=== PATIENT | male | born 1950 | race Caucasian/White ===

== ENCOUNTER 2022-03-04 16:10 | Inpatient (IN) ==
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
[2022-03-04 17:33] LABS: Basophils # (auto) 0.02 K/uL (0-0.2); Basophils % (auto) 0.2 %; Hematocrit (blood only) 40.3 % (40.1-51.0); Hemoglobin 13.7 g/dl (14.0-18.0); Immature Granulocytes # (auto) 0.04 K/uL (0.00-0.02); Immature Granulocytes % (auto) 0.3 %; Lymphocytes # (auto) 0.52 K/uL (1.2-3.4); Lymphocytes % (auto) 4.3 %; Mean Corpuscular Hemoglobin 31.8 pg (25.0-34.0); Mean Corpuscular Volume 93.5 fL (80.0-100.0); Mean Platelet Volume 10.3 fL (9.4-12.4); Monocytes % (auto) 7.4 %; Neutrophils # (auto) 10.73 K/uL (1.4-6.5); Neutrophils % (auto) 87.8 %; Platelet Count 178 K/uL (130-400); RDW Coefficient of Variation 13.6 % (11.5-14.5); RDW Standard Deviation 46.5 fL (36.4-46.3); Red Blood Count 4.31 M/uL (4.63-6.08); White Blood Count 12.21 K/ul (4.8-10.8)
--- NOTE | 2022-03-04 17:43 | CT Scan Report ---
CT head/brain wo con CLINICAL HISTORY: 71 years-old Male with ams. Acutely altered mental status TECHNIQUE: Multiple axial CT images of the head were obtained without contrast. A dose lowering tech nique was utilized adhering to the principles of ALARA. CT DOSE: 537.48 mGy.cm COMPARISON: None. FINDINGS: No acute intracranial hemorrhage, midline shift, intracranial mass, hydrocephalus, territorial ischem ia or abnormal extra-axial collection. Mild involutional changes. The calvarium is intact. The paranasal sinuses, mastoid air cells, and middle ear cavities are clear . IMPRESSION: No acute intracranial abnormality. ACT 112: Negative or not required by law. The above report was generated using voice recognition software. It may contain grammatical, syntax o r spelling errors. Electronically signed by: Parrish De La Cruz M.D. 03/04/2022 5:41 PM
[2022-03-04 17:57] LABS: BUN Creatinine Ratio 24.8 (10-20); Calcium 9.5 mg/dl (8.5-10.1); Creatinine Clr Calc Pharmacy 45.1 ml/min; Est GFR (African American) 59.7 ml/min; Est GFR (Non-African American) 51.5 ml/min; Potassium 3.9 mmol/L (3.5-5.1)
[2022-03-04 18:11] LABS: Acetaminophen < 3 ug/ml (10-30); Salicylate < 3.0 mg/dl (3.0-30)
[2022-03-04 18:18] LABS: Albumin Globulin Ratio 1.5 (0.9-2); Bilirubin,Total 4.2 mg/dl (0.2-1.0); Globulin 2.7 gm/dl (2.5-4.0); Total Protein 6.7 gm/dl (6.0-8.3)
[2022-03-04] MEDS ORDERED: SODIUM CHLORIDE 0.9% 1000ML 1,000 ML IV ONE (18:25)
[2022-03-04] MEDS ORDERED: SODIUM CHLORIDE 0.9% 1000ML 1,000 ML IV SCH (18:30)
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
[2022-03-04 20:34] LABS: Lyme Ab IgG w/WB Rflx Negative (Negative); Lyme Ab IgM w/WB Rflx Negative (Negative)
[2022-03-04] MEDS ORDERED: OLANZapine 10 MG/2.1 ML SDV IM STA (22:13)
[2022-03-04] MEDS ORDERED: ACETAMINOPHEN 325 MG TAB PO PRN (22:14)
[2022-03-04] MEDS ORDERED: ONDANSETRON INJ 2 MG/ML 2 ML VIAL IV PRN (22:14)
[2022-03-04] MEDS ORDERED: OLANZapine 10 MG/2.1 ML SDV IM ONE (22:17)
[2022-03-04] MEDS ORDERED: LORazepam 0.5 MG in SYRINGE 0.25 ML IV ONE (22:50)
[2022-03-04] MEDS: SODIUM CHLORIDE 0.9% 1000ML 1,000 ML IV SCH (22:52)
[2022-03-04] MEDS: risperiDONE 2 MG TABLET PO SCH (23:00)
[2022-03-05 03:21] LABS: Appearance Urine Clear (Clear); Bacteria Urine Automated Negative (Negative); Bilirubin Urine Negative (Negative); Blood Urine 2+ (Negative); Color Urine Yellow; Epithelial Cell Urine Auto 0-5 /lpf (0-5); Glucose Urine UA Negative (Negative); Ketones Urine 1+ (Negative); Leukocyte Esterase Urine Negative (Negative); Nitrite Urine Negative (Negative); Protein Urine 1+ (Negative); RBC Urine Automated 0-4 /hpf (0-4); Specific Gravity Urine 1.025 (1.000-1.030); Urobilinogen Urine Negative (Negative)
[2022-03-05 03:45] LABS: Amphetamines+Metham, Urine Neg (Neg); Barbiturates, Urine Neg (Neg); Benzodiazepine, Urine Neg (Neg); Cocaine, Urine Neg (Neg); MDMA (Ecstacy), Urine Neg (Neg); Methadone, Urine Neg (Neg); Opiate, Urine Neg (Neg); Phencyclidine, Urine Neg (Neg)
[2022-03-05] MEDS: SODIUM CHLORIDE 0.9% 1000ML 1,000 ML IV SCH ×3 (06:12→23:36)
[2022-03-05] MEDS: PANTOprazole 40 MG TAB PO SCH ×2 (10:05→10:42)
[2022-03-05] MEDS: OLANZapine 10 MG/2.1 ML SDV IM PRN ×2 (10:08→14:10)
--- NOTE | 2022-03-05 12:36 | Hospitalist Progress Note ---
Date of Service March 05, 2022 Assessment & Plan (1) Rhabdomyolysis: Plan: -Continue IV fluids, elevated CK level of 5697 on admission, repeat CK pending. might worsen with his agitation. monitor (2) Bipolar disorder: (3) Altered mental status: Plan: -CT of the brain is negative for any acute findings - UDS negative, no focal source of infection, lyme and other tick borne disease negative - Patient is on a 302, psych evaluation pending - currently on 1:1, and on restraints as violent and uncooperative - Risperdal resumed (4) Elevated bilirubin: (5) Transaminitis: Plan: - Repeat LFT pending, tick borne work up negative so far, hepatitis panel pending (6) Charles esophagus: Plan: continue PPI (7) DDD (degenerative disc disease): (8) B12 deficiency: Plan: B12 level normal. leucocytosis- resolved. likely reactive. DVT ppx: lovenox Dispo: on 302, doesn't have decision making capacity, can not leave AMA. Psych evaluation pending Admission and Anticipated Discharge Date Admission Date: March 04, 2022 Subjective He remains confused, agitated and constantly yelling to get rid the scammers. He was given zyprexa but did not calm down. He is on restraints for the same. No fever, shortness of breath. Physical Exam Physical Exam: General: Lying in bed, agitated, on room air Chest: Clear breath sounds bilaterally, no wheezes or crackles CVS: Regular rate and rhythm, normal heart sounds, no murmur Abdomen: Soft, non tender, not distended, normal bowel sounds Neuro: Awake, alert, agitated, not conversing appropriately, not following any commands Extremities: No edema Psych: agitated, non cooperative, on restraints Results & Data Results & Data ([facility]) Laboratory Results Short CBC 03/04/22 Range/Units 17:04 WBC 12.21 H (4.8-10.8) K/ul Hgb 13.7 L (14.0-18.0) g/dl Hct 40.3 (40.1-51.0) % Plt Count 178 (130-400) K/uL BMP 03/04/22 17:04 Sodium 141 Potassium 3.9 Chloride 107 Carbon Dioxide 20 L BUN 34 H Creatinine 1.37 Glucose 114 H Calcium 9.5 Cardiac Enzymes 03/04/22 Range/Units 17:04 Total Creatine Kinase 5697 H (30-223) U/L Liver Function 03/04/22 Range/Units 17:04 Total Bilirubin 4.2 H (0.2-1.0) mg/dl AST 154 H (13-39) U/L ALT 61 H (7-52) U/L Alkaline Phosphatase 74 (34-104) U/L Albumin 4.0 (3.4-5.0) gm/dl Urine 03/04/22 03/05/22 Range/Units 17:23 03:08 Urine Color Cancelled Yellow Urine Appearance Cancelled Clear Urine pH Cancelled 5.0 Ur Specific [place] Cancelled 1.025 Urine Protein Cancelled 1+ H Urine Glucose (UA) Cancelled Negative Medications Administered Current Inpatient Medications Acetaminophen (Acetaminophen 325 Mg Tab) 650 mg PO Q4H PRN PRN Reason: Moderate Pain Stop: 04/03/22 22:13 Sodium Chloride (Nss 1000ml) 1,000 mls @ 125 mls/hr IV .Q8H CIERRA Stop: 03/05/22 14:13 Last Infusion: 03/05/22 12:27 Dose: Infused Olanzapine (Olanzapine 10 Mg/2.1 Ml Sdv) 2.5 mg IM Q4H PRN PRN Reason: Anxiety/Agitation Stop: 04/04/22 00:42 Last Admin: 03/05/22 10:08 Dose: 2.5 mg Ondansetron HCl (Ondansetron Inj 2 Mg/Ml 2 Ml Vial) 4 mg IV Q4H PRN PRN Reason: Nausea And Vomiting Stop: 04/03/22 22:13 Pantoprazole Sodium (Pantoprazole 40 Mg Tab) 40 mg PO DAILY CIERRA Stop: 04/04/22 08:59 Last Admin: 03/05/22 10:42 Dose: Not Given Risperidone (Risperidone 2 Mg Tablet) 2 mg PO QPM CIERRA Stop: 04/03/22 22:13 Last Admin: 03/04/22 23:00 Dose: Not Given (1) Rhabdomyolysis Rhabdomyolysis type: non-traumatic Qualified Code(s): M62.82 - Rhabdomyolysis (2) Altered mental status Altered mental status type: unspecified Qualified Code(s): R41.82 - Altered mental status, unspecified
[2022-03-05 12:40] LABS: Hematocrit (blood only) 36.1 % (40.1-51.0); Hemoglobin 12.3 g/dl (14.0-18.0); Mean Corpuscular Hemoglobin 32.1 pg (25.0-34.0); Mean Corpuscular Hgb Conc 34.1 g/dL (32.0-36.0); Mean Corpuscular Volume 94.3 fL (80.0-100.0); Mean Platelet Volume 10.2 fL (9.4-12.4); Platelet Count 172 K/uL (130-400); RDW Coefficient of Variation 13.8 % (11.5-14.5); RDW Standard Deviation 47.4 fL (36.4-46.3); Red Blood Count 3.83 M/uL (4.63-6.08); White Blood Count 10.79 K/ul (4.8-10.8)
[2022-03-05 12:51] LABS: INR 1.1 (0.9-1.1); Prothrombin Time 11.8 Seconds (9.0-12.0)
[2022-03-05 13:10] LABS: Albumin Globulin Ratio 1.5 (0.9-2); Albumin Level 3.4 gm/dl (3.4-5.0); BUN Creatinine Ratio 21.6 (10-20); Bilirubin Direct 0.7 mg/dl (0-0.2); Bilirubin,Total 4.6 mg/dl (0.2-1.0); Calcium 8.6 mg/dl (8.5-10.1); Chol HDL Ratio 1.7 (0-5); Creatinine Clr Calc Pharmacy 53.3 ml/min; Globulin 2.3 gm/dl (2.5-4.0); Phosphorus 3.3 mg/dl (2.5-4.9); Potassium 3.9 mmol/L (3.5-5.1); Total Protein 5.7 gm/dl (6.0-8.3)
[2022-03-05] MEDS ORDERED: OLANZapine 10 MG/2.1 ML SDV IM STA (15:11)
--- NOTE | 2022-03-05 15:23 | Psychiatric Consultation ---
Date of Consultation March 05, 2022 Impression / Recommendations Impression 71 yo male with 1 month of med non compliance with longstanding antipsychotic medication/mood stabilizer with acute AMS with rhabdo in the setting of paranoia. Unclear how much is delirium vs primary psychosis vs carmen vs agitated catatonia (which can be seen in both mood disorders and schizophrenia.) (1) Altered mental status: Altered mental status type: unspecified Qualified Code(s): R41.82 - Altered mental status, unspecified (2) Rhabdomyolysis: Rhabdomyolysis type: non-traumatic Qualified Code(s): M62.82 - Rhabdomyolysis (3) Bipolar disorder: Plan Increase Zyprexa IM to 5 mg, trying to avoid Haldol given CPK elevation and QTc repeat EKG to monitor QTc cannot give IM Ativan but when reestablish IV would suggest 1 mg TID to address suspected catatonic component monitor trend on CPK, expecially since receiving antipsychotics and requirinig restratings despite 1 on 1. Psych History Identifying Data 71 yo male with a history of psychosis (?bipolar) from [facility] who had gone missing. He was admitted to medicine for rhabdo aftering being found wandering in a [facility] area. Chief Complaint paranoid as off meds for 1 month History of Present Illness The patient is not able to provide history. He has AMS/confusion, rocks arms/legs to point he's in restraints and removed his IVX2 despite doses of IM Zyprexa 2.5 mg. Apparently repeats nonsensical delusional satements about scammers. not immediately available for collateral history. In looking in chart, valariericarlee shows recent script for Risperdal 2 mg and although he has not history with our consultation liaison service, he was seen in the ED on 2 occasions >20 years ago for paranoia with rx of Risperdal up to 3 mg. Patient was a missing person having wandered off and being found in a [facility] area having been there at least overnight/most of day. Allergies Allergy/AdvReac Type Severity Reaction Status Date / Time No Known Allergies Allergy Verified 03/04/22 22:18 Home Medications Medication Instructions Recorded Confirmed Type pantoprazole 40 mg tablet,delayed 40 mg PO DAILY 03/04/22 03/04/22 History release risperidone 2 mg tablet 2 mg PO QPM 03/04/22 03/04/22 History Personal History Beliefs That Will Affect Care: None Patient History Medical History B12 deficiency Charles esophagus Bipolar disorder DDD (degenerative disc disease) Slow transit constipation Surgical History Hx of colonoscopy Hx of esophagogastroduodenoscopy Hx of inguinal hernia repair Family History Mother Neurological disorder Father Diabetes Social History Smoking Status: Never smoker Second Hand Exposure: No; Do You Dip or Chew Tobacco: No; Hx Alcohol Use: No Hx Substance Use: No Preferred Language: Amharic Communication Ability: Effective 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 Vital Signs (Past 24 Hours): Last Vital Signs Temp 36.5 C 03/04/22 22:49 Pulse 90 03/04/22 22:49 Resp 22 03/04/22 22:49 BP 128/75 03/04/22 22:49 Pulse Ox 100 03/04/22 22:49 O2 Del Method 03/04/22 22:49 Review of Systems Unobtainable due to cognitive status Results & Data (PSY) Laboratory Results 03/05/22 03/05/22 03/05/22 Range/Units 11:38 11:38 11:38 WBC (4.8-10.8) K/ul RBC (4.63-6.08) M/uL Hgb (14.0-18.0) g/dl Hct (40.1-51.0) % MCV (80.0-100.0) fL MCH (25.0-34.0) pg MCHC (32.0-36.0) g/dL RDW Std Deviation (36.4-46.3) fL RDW Coeff of Leyla (11.5-14.5) % Plt Count (130-400) K/uL MPV (9.4-12.4) fL Immature Gran % (Auto) % Neut % (Auto) % Lymph % (Auto) % [place] % (Auto) % Eos % (Auto) % Baso % (Auto) % Neut # (Auto) (1.4-6.5) K/uL Lymph # (Auto) (1.2-3.4) K/uL [place] # (Auto) (0.24-0.82) K/uL Eos # (Auto) (0-0.50) K/uL Baso # (Auto) (0-0.2) K/uL Immature Gran # (Auto) (0.00-0.02) K/uL PT (9.0-12.0) Seconds INR (0.9-1.1) Sodium 143 (136-145) mmol/L Potassium 3.9 (3.5-5.1) mmol/L Chloride 113 H (98-107) mmol/L Carbon Dioxide 18 L (21-32) mmol/L Anion Gap 12 H (3-11) BUN 25 H (6-23) mg/dl Creatinine 1.16 (0.6-1.4) mg/dl Est Cr Clr Drug Dosing 53.3 ml/min Est GFR ( Amer) 73.0 ml/min Est GFR (Non-Af Amer) 63.0 ml/min BUN/Creatinine Ratio 21.6 H (10-20) Glucose 76 (70-99(Fasting)) mg/dl Estimat Average Glucose Pending Hemoglobin A1c Pending Calcium 8.6 (8.5-10.1) mg/dl Phosphorus 3.3 (2.5-4.9) mg/dl Magnesium 2.0 (1.7-2.4) mg/dl Total Bilirubin 4.6 H (0.2-1.0) mg/dl Direct Bilirubin 0.7 H (0-0.2) mg/dl AST 137 H (13-39) U/L ALT 55 H (7-52) U/L Alkaline Phosphatase 61 (34-104) U/L Total Creatine Kinase 4838 H (30-223) U/L Total Protein 5.7 L (6.0-8.3) gm/dl Albumin 3.4 (3.4-5.0) gm/dl Globulin 2.3 L (2.5-4.0) gm/dl Albumin/Globulin Ratio 1.5 (0.9-2) Triglycerides 70 (0-150) mg/dl Cholesterol 98 (0-200) mg/dl LDL Cholesterol, Calc 25 mg/dl VLDL Cholesterol, Calc 14 (0-30) mg/dl HDL Cholesterol 59 mg/dl Cholesterol/HDL Ratio 1.7 (0-5) Vitamin B12 (180-914) pg/ml TSH (0.300-4.500) uIu/ml Urine Color Urine Appearance Urine pH Ur Specific [place] Urine Protein Urine Glucose (UA) Urine Ketones Urine Blood Urine Nitrite Urine Bilirubin Urine Urobilinogen Ur Leukocyte Esterase Urine WBC (Auto) Urine RBC (Auto) U Hyaline Cast (Auto) U Epithel Cells (Auto) Urine Bacteria (Auto) Ur Renal Epithelial Cell Urine Crystals Calcium Oxalate Crystal Uric Acid Crystals Triple Phos Crystals Other Crystals Amorphous Sediment Granular Casts Waxy Casts RBC Casts WBC Casts Other Casts Urine Mucus Urine Other Urine Trichomonas Urine Yeast Urine Sperm Ur Oval Fat Bodies Salicylates (3.0-30) mg/dl Urine Opiates Screen (Neg) Ur Methadone, Qual (Neg) Acetaminophen (10-30) ug/ml Urine Barbiturates (Neg) Ur Phencyclidine (PCP) (Neg) U Amphetamin/Meth Scrn (Neg) MDMA (Ecstasy) Screen (Neg) U Benzodiazepines Scrn (Neg) Ur Cocaine Metabolite (Neg) U Marijuana (THC) Screen (Neg) Ethyl Alcohol mg/dL (<10.0) mg/dl Anaplasma Smear A. phagocytophilum DNA Babesia Smear Lyme Disease IgG Ab (Negative) Lyme Disease IgM Ab (Negative) Hepatitis A IgM Ab Hep Bs Antigen Hep Bs Ag Confirmation Hep B Core IgM Ab Hepatitis C Ab (EIA) Hep C Ab Signal/Cutoff SARS-CoV-2, RNA, NAAT (NEGATIVE) 03/05/22 03/05/22 03/05/22 Range/Units 11:38 11:38 03:08 WBC 10.79 (4.8-10.8) K/ul RBC 3.83 L (4.63-6.08) M/uL Hgb 12.3 L (14.0-18.0) g/dl Hct 36.1 L (40.1-51.0) % MCV 94.3 (80.0-100.0) fL MCH 32.1 (25.0-34.0) pg MCHC 34.1 (32.0-36.0) g/dL RDW Std Deviation 47.4 H (36.4-46.3) fL RDW Coeff of Leyla 13.8 (11.5-14.5) % Plt Count 172 (130-400) K/uL MPV 10.2 (9.4-12.4) fL Immature Gran % (Auto) % Neut % (Auto) % Lymph % (Auto) % [place] % (Auto) % Eos % (Auto) % Baso % (Auto) % Neut # (Auto) (1.4-6.5) K/uL Lymph # (Auto) (1.2-3.4) K/uL [place] # (Auto) (0.24-0.82) K/uL Eos # (Auto) (0-0.50) K/uL Baso # (Auto) (0-0.2) K/uL Immature Gran # (Auto) (0.00-0.02) K/uL PT 11.8 (9.0-12.0) Seconds INR 1.1 (0.9-1.1) Sodium (136-145) mmol/L Potassium (3.5-5.1) mmol/L Chloride (98-107) mmol/L Carbon Dioxide (21-32) mmol/L Anion Gap (3-11) BUN (6-23) mg/dl Creatinine (0.6-1.4) mg/dl Est Cr Clr Drug Dosing ml/min Est GFR ( Amer) ml/min Est GFR (Non-Af Amer) ml/min BUN/Creatinine Ratio (10-20) Glucose (70-99(Fasting)) mg/dl Estimat Average Glucose Hemoglobin A1c Calcium (8.5-10.1) mg/dl Phosphorus (2.5-4.9) mg/dl Magnesium (1.7-2.4) mg/dl Total Bilirubin (0.2-1.0) mg/dl Direct Bilirubin (0-0.2) mg/dl AST (13-39) U/L ALT (7-52) U/L Alkaline Phosphatase (34-104) U/L Total Creatine Kinase (30-223) U/L Total Protein (6.0-8.3) gm/dl Albumin (3.4-5.0) gm/dl Globulin (2.5-4.0) gm/dl Albumin/Globulin Ratio (0.9-2) Triglycerides (0-150) mg/dl Cholesterol (0-200) mg/dl LDL Cholesterol, Calc mg/dl VLDL Cholesterol, Calc (0-30) mg/dl HDL Cholesterol mg/dl Cholesterol/HDL Ratio (0-5) Vitamin B12 (180-914) pg/ml TSH (0.300-4.500) uIu/ml Urine Color Yellow Urine Appearance Clear Urine pH 5.0 Ur Specific [place] 1.025 Urine Protein 1+ H Urine Glucose (UA) Negative Urine Ketones 1+ H Urine Blood 2+ H Urine Nitrite Negative Urine Bilirubin Negative Urine Urobilinogen Negative Ur Leukocyte Esterase Negative Urine WBC (Auto) 1-5 Urine RBC (Auto) 0-4 U Hyaline Cast (Auto) 1-5 U Epithel Cells (Auto) 0-5 Urine Bacteria (Auto) Negative Ur Renal Epithelial Cell Urine Crystals Calcium Oxalate Crystal Uric Acid Crystals Triple Phos Crystals Other Crystals Amorphous Sediment Granular Casts Waxy Casts RBC Casts WBC Casts Other Casts Urine Mucus Urine Other Urine Trichomonas Urine Yeast Urine Sperm Ur Oval Fat Bodies Salicylates (3.0-30) mg/dl Urine Opiates Screen (Neg) Ur Methadone, Qual (Neg) Acetaminophen (10-30) ug/ml Urine Barbiturates (Neg) Ur Phencyclidine (PCP) (Neg) U Amphetamin/Meth Scrn (Neg) MDMA (Ecstasy) Screen (Neg) U Benzodiazepines Scrn (Neg) Ur Cocaine Metabolite (Neg) U Marijuana (THC) Screen (Neg) Ethyl Alcohol mg/dL (<10.0) mg/dl Anaplasma Smear A. phagocytophilum DNA Babesia Smear Lyme Disease IgG Ab (Negative) Lyme Disease IgM Ab (Negative) Hepatitis A IgM Ab Hep Bs Antigen Hep Bs Ag Confirmation Hep B Core IgM Ab Hepatitis C Ab (EIA) Hep C Ab Signal/Cutoff SARS-CoV-2, RNA, NAAT (NEGATIVE) 03/05/22 03/04/22 03/04/22 Range/Units 03:08 17:42 17:23 WBC (4.8-10.8) K/ul RBC (4.63-6.08) M/uL Hgb (14.0-18.0) g/dl Hct (40.1-51.0) % MCV (80.0-100.0) fL MCH (25.0-34.0) pg MCHC (32.0-36.0) g/dL RDW Std Deviation (36.4-46.3) fL RDW Coeff of Leyla (11.5-14.5) % Plt Count (130-400) K/uL MPV (9.4-12.4) fL Immature Gran % (Auto) % Neut % (Auto) % Lymph % (Auto) % [place] % (Auto) % Eos % (Auto) % Baso % (Auto) % Neut # (Auto) (1.4-6.5) K/uL Lymph # (Auto) (1.2-3.4) K/uL [place] # (Auto) (0.24-0.82) K/uL Eos # (Auto) (0-0.50) K/uL Baso # (Auto) (0-0.2) K/uL Immature Gran # (Auto) (0.00-0.02) K/uL PT (9.0-12.0) Seconds INR (0.9-1.1) Sodium (136-145) mmol/L Potassium (3.5-5.1) mmol/L Chloride (98-107) mmol/L Carbon Dioxide (21-32) mmol/L Anion Gap (3-11) BUN (6-23) mg/dl Creatinine (0.6-1.4) mg/dl Est Cr Clr Drug Dosing ml/min Est GFR ( Amer) ml/min Est GFR (Non-Af Amer) ml/min BUN/Creatinine Ratio (10-20) Glucose (70-99(Fasting)) mg/dl Estimat Average Glucose Hemoglobin A1c Calcium (8.5-10.1) mg/dl Phosphorus (2.5-4.9) mg/dl Magnesium (1.7-2.4) mg/dl Total Bilirubin (0.2-1.0) mg/dl Direct Bilirubin (0-0.2) mg/dl AST (13-39) U/L ALT (7-52) U/L Alkaline Phosphatase (34-104) U/L Total Creatine Kinase (30-223) U/L Total Protein (6.0-8.3) gm/dl Albumin (3.4-5.0) gm/dl Globulin (2.5-4.0) gm/dl Albumin/Globulin Ratio (0.9-2) Triglycerides (0-150) mg/dl Cholesterol (0-200) mg/dl LDL Cholesterol, Calc mg/dl VLDL Cholesterol, Calc (0-30) mg/dl HDL Cholesterol mg/dl Cholesterol/HDL Ratio (0-5) Vitamin B12 (180-914) pg/ml TSH (0.300-4.500) uIu/ml Urine Color Cancelled Urine Appearance Cancelled Urine pH Cancelled Ur Specific [place] Cancelled Urine Protein Cancelled Urine Glucose (UA) Cancelled Urine Ketones Cancelled Urine Blood Cancelled Urine Nitrite Cancelled Urine Bilirubin Cancelled Urine Urobilinogen Cancelled Ur Leukocyte Esterase Cancelled Urine WBC (Auto) Cancelled Urine RBC (Auto) Cancelled U Hyaline Cast (Auto) Cancelled U Epithel Cells (Auto) Cancelled Urine Bacteria (Auto) Cancelled Ur Renal Epithelial Cell Cancelled Urine Crystals Cancelled Calcium Oxalate Crystal Cancelled Uric Acid Crystals Cancelled Triple Phos Crystals Cancelled Other Crystals Cancelled Amorphous Sediment Cancelled Granular Casts Cancelled Waxy Casts Cancelled RBC Casts Cancelled WBC Casts Cancelled Other Casts Cancelled Urine Mucus Cancelled Urine Other Cancelled Urine Trichomonas Cancelled Urine Yeast Cancelled Urine Sperm Cancelled Ur Oval Fat Bodies Cancelled Salicylates (3.0-30) mg/dl Urine Opiates Screen Neg (Neg) Ur Methadone, Qual Neg (Neg) Acetaminophen (10-30) ug/ml Urine Barbiturates Neg (Neg) Ur Phencyclidine (PCP) Neg (Neg) U Amphetamin/Meth Scrn Neg (Neg) MDMA (Ecstasy) Screen Neg (Neg) U Benzodiazepines Scrn Neg (Neg) Ur Cocaine Metabolite Neg (Neg) U Marijuana (THC) Screen Neg (Neg) Ethyl Alcohol mg/dL (<10.0) mg/dl Anaplasma Smear A. phagocytophilum DNA Babesia Smear Lyme Disease IgG Ab (Negative) Lyme Disease IgM Ab (Negative) Hepatitis A IgM Ab Hep Bs Antigen Hep Bs Ag Confirmation Hep B Core IgM Ab Hepatitis C Ab (EIA) Hep C Ab Signal/Cutoff SARS-CoV-2, RNA, NAAT NEGATIVE (NEGATIVE) 03/04/22 03/04/22 03/04/22 Range/Units 17:04 17:04 17:04 WBC (4.8-10.8) K/ul RBC (4.63-6.08) M/uL Hgb (14.0-18.0) g/dl Hct (40.1-51.0) % MCV (80.0-100.0) fL MCH (25.0-34.0) pg MCHC (32.0-36.0) g/dL RDW Std Deviation (36.4-46.3) fL RDW Coeff of Leyla (11.5-14.5) % Plt Count (130-400) K/uL MPV (9.4-12.4) fL Immature Gran % (Auto) % Neut % (Auto) % Lymph % (Auto) % [place] % (Auto) % Eos % (Auto) % Baso % (Auto) % Neut # (Auto) (1.4-6.5) K/uL Lymph # (Auto) (1.2-3.4) K/uL [place] # (Auto) (0.24-0.82) K/uL Eos # (Auto) (0-0.50) K/uL Baso # (Auto) (0-0.2) K/uL Immature Gran # (Auto) (0.00-0.02) K/uL PT (9.0-12.0) Seconds INR (0.9-1.1) Sodium (136-145) mmol/L Potassium (3.5-5.1) mmol/L Chloride (98-107) mmol/L Carbon Dioxide (21-32) mmol/L Anion Gap (3-11) BUN (6-23) mg/dl Creatinine (0.6-1.4) mg/dl Est Cr Clr Drug Dosing ml/min Est GFR ( Amer) ml/min Est GFR (Non-Af Amer) ml/min BUN/Creatinine Ratio (10-20) Glucose (70-99(Fasting)) mg/dl Estimat Average Glucose Hemoglobin A1c Calcium (8.5-10.1) mg/dl Phosphorus (2.5-4.9) mg/dl Magnesium (1.7-2.4) mg/dl Total Bilirubin (0.2-1.0) mg/dl Direct Bilirubin (0-0.2) mg/dl AST (13-39) U/L ALT (7-52) U/L Alkaline Phosphatase (34-104) U/L Total Creatine Kinase (30-223) U/L Total Protein (6.0-8.3) gm/dl Albumin (3.4-5.0) gm/dl Globulin (2.5-4.0) gm/dl Albumin/Globulin Ratio (0.9-2) Triglycerides (0-150) mg/dl Cholesterol (0-200) mg/dl LDL Cholesterol, Calc mg/dl VLDL Cholesterol, Calc (0-30) mg/dl HDL Cholesterol mg/dl Cholesterol/HDL Ratio (0-5) Vitamin B12 308 (180-914) pg/ml TSH (0.300-4.500) uIu/ml Urine Color Urine Appearance Urine pH Ur Specific [place] Urine Protein Urine Glucose (UA) Urine Ketones Urine Blood Urine Nitrite Urine Bilirubin Urine Urobilinogen Ur Leukocyte Esterase Urine WBC (Auto) Urine RBC (Auto) U Hyaline Cast (Auto) U Epithel Cells (Auto) Urine Bacteria (Auto) Ur Renal Epithelial Cell Urine Crystals Calcium Oxalate Crystal Uric Acid Crystals Triple Phos Crystals Other Crystals Amorphous Sediment Granular Casts Waxy Casts RBC Casts WBC Casts Other Casts Urine Mucus Urine Other Urine Trichomonas Urine Yeast Urine Sperm Ur Oval Fat Bodies Salicylates (3.0-30) mg/dl Urine Opiates Screen (Neg) Ur Methadone, Qual (Neg) Acetaminophen (10-30) ug/ml Urine Barbiturates (Neg) Ur Phencyclidine (PCP) (Neg) U Amphetamin/Meth Scrn (Neg) MDMA (Ecstasy) Screen (Neg) U Benzodiazepines Scrn (Neg) Ur Cocaine Metabolite (Neg) U Marijuana (THC) Screen (Neg) Ethyl Alcohol mg/dL (<10.0) mg/dl Anaplasma Smear A. phagocytophilum DNA Pending Babesia Smear Lyme Disease IgG Ab (Negative) Lyme Disease IgM Ab (Negative) Hepatitis A IgM Ab Pending Hep Bs Antigen Pending Hep Bs Ag Confirmation Pending Hep B Core IgM Ab Pending Hepatitis C Ab (EIA) Pending Hep C Ab Signal/Cutoff Pending SARS-CoV-2, RNA, NAAT (NEGATIVE) 03/04/22 03/04/22 03/04/22 Range/Units 17:04 17:04 17:04 WBC (4.8-10.8) K/ul RBC (4.63-6.08) M/uL Hgb (14.0-18.0) g/dl Hct (40.1-51.0) % MCV (80.0-100.0) fL MCH (25.0-34.0) pg MCHC (32.0-36.0) g/dL RDW Std Deviation (36.4-46.3) fL RDW Coeff of Leyla (11.5-14.5) % Plt Count (130-400) K/uL MPV (9.4-12.4) fL Immature Gran % (Auto) % Neut % (Auto) % Lymph % (Auto) % [place] % (Auto) % Eos % (Auto) % Baso % (Auto) % Neut # (Auto) (1.4-6.5) K/uL Lymph # (Auto) (1.2-3.4) K/uL [place] # (Auto) (0.24-0.82) K/uL Eos # (Auto) (0-0.50) K/uL Baso # (Auto) (0-0.2) K/uL Immature Gran # (Auto) (0.00-0.02) K/uL PT (9.0-12.0) Seconds INR (0.9-1.1) Sodium (136-145) mmol/L Potassium (3.5-5.1) mmol/L Chloride (98-107) mmol/L Carbon Dioxide (21-32) mmol/L Anion Gap (3-11) BUN (6-23) mg/dl Creatinine (0.6-1.4) mg/dl Est Cr Clr Drug Dosing ml/min Est GFR ( Amer) ml/min Est GFR (Non-Af Amer) ml/min BUN/Creatinine Ratio (10-20) Glucose (70-99(Fasting)) mg/dl Estimat Average Glucose Hemoglobin A1c Calcium (8.5-10.1) mg/dl Phosphorus (2.5-4.9) mg/dl Magnesium (1.7-2.4) mg/dl Total Bilirubin (0.2-1.0) mg/dl Direct Bilirubin (0-0.2) mg/dl AST (13-39) U/L ALT (7-52) U/L Alkaline Phosphatase (34-104) U/L Total Creatine Kinase (30-223) U/L Total Protein (6.0-8.3) gm/dl Albumin (3.4-5.0) gm/dl Globulin (2.5-4.0) gm/dl Albumin/Globulin Ratio (0.9-2) Triglycerides (0-150) mg/dl Cholesterol (0-200) mg/dl LDL Cholesterol, Calc mg/dl VLDL Cholesterol, Calc (0-30) mg/dl HDL Cholesterol mg/dl Cholesterol/HDL Ratio (0-5) Vitamin B12 (180-914) pg/ml TSH (0.300-4.500) uIu/ml Urine Color Urine Appearance Urine pH Ur Specific [place] Urine Protein Urine Glucose (UA) Urine Ketones Urine Blood Urine Nitrite Urine Bilirubin Urine Urobilinogen Ur Leukocyte Esterase Urine WBC (Auto) Urine RBC (Auto) U Hyaline Cast (Auto) U Epithel Cells (Auto) Urine Bacteria (Auto) Ur Renal Epithelial Cell Urine Crystals Calcium Oxalate Crystal Uric Acid Crystals Triple Phos Crystals Other Crystals Amorphous Sediment Granular Casts Waxy Casts RBC Casts WBC Casts Other Casts Urine Mucus Urine Other Urine Trichomonas Urine Yeast Urine Sperm Ur Oval Fat Bodies Salicylates < 3.0 L (3.0-30) mg/dl Urine Opiates Screen (Neg) Ur Methadone, Qual (Neg) Acetaminophen < 3 L (10-30) ug/ml Urine Barbiturates (Neg) Ur Phencyclidine (PCP) (Neg) U Amphetamin/Meth Scrn (Neg) MDMA (Ecstasy) Screen (Neg) U Benzodiazepines Scrn (Neg) Ur Cocaine Metabolite (Neg) U Marijuana (THC) Screen (Neg) Ethyl Alcohol mg/dL < 10.0 (<10.0) mg/dl Anaplasma Smear A. phagocytophilum DNA Babesia Smear Lyme Disease IgG Ab Negative (Negative) Lyme Disease IgM Ab Negative (Negative) Hepatitis A IgM Ab Hep Bs Antigen Hep Bs Ag Confirmation Hep B Core IgM Ab Hepatitis C Ab (EIA) Hep C Ab Signal/Cutoff SARS-CoV-2, RNA, NAAT (NEGATIVE) 03/04/22 03/04/22 03/04/22 Range/Units 17:04 17:04 17:04 WBC 12.21 H (4.8-10.8) K/ul RBC 4.31 L (4.63-6.08) M/uL Hgb 13.7 L (14.0-18.0) g/dl Hct 40.3 (40.1-51.0) % MCV 93.5 (80.0-100.0) fL MCH 31.8 (25.0-34.0) pg MCHC 34.0 (32.0-36.0) g/dL RDW Std Deviation 46.5 H (36.4-46.3) fL RDW Coeff of Leyla 13.6 (11.5-14.5) % Plt Count 178 (130-400) K/uL MPV 10.3 (9.4-12.4) fL Immature Gran % (Auto) 0.3 % Neut % (Auto) 87.8 % Lymph % (Auto) 4.3 % [place] % (Auto) 7.4 % Eos % (Auto) 0.0 % Baso % (Auto) 0.2 % Neut # (Auto) 10.73 H (1.4-6.5) K/uL Lymph # (Auto) 0.52 L (1.2-3.4) K/uL [place] # (Auto) 0.90 H (0.24-0.82) K/uL Eos # (Auto) 0.00 (0-0.50) K/uL Baso # (Auto) 0.02 (0-0.2) K/uL Immature Gran # (Auto) 0.04 H (0.00-0.02) K/uL PT (9.0-12.0) Seconds INR (0.9-1.1) Sodium 141 (136-145) mmol/L Potassium 3.9 (3.5-5.1) mmol/L Chloride 107 (98-107) mmol/L Carbon Dioxide 20 L (21-32) mmol/L Anion Gap 14 H (3-11) BUN 34 H (6-23) mg/dl Creatinine 1.37 (0.6-1.4) mg/dl Est Cr Clr Drug Dosing 45.1 ml/min Est GFR ( Amer) 59.7 ml/min Est GFR (Non-Af Amer) 51.5 ml/min BUN/Creatinine Ratio 24.8 H (10-20) Glucose 114 H (70-99(Fasting)) mg/dl Estimat Average Glucose Hemoglobin A1c Calcium 9.5 (8.5-10.1) mg/dl Phosphorus (2.5-4.9) mg/dl Magnesium 2.0 (1.7-2.4) mg/dl Total Bilirubin 4.2 H (0.2-1.0) mg/dl Direct Bilirubin (0-0.2) mg/dl AST 154 H (13-39) U/L ALT 61 H (7-52) U/L Alkaline Phosphatase 74 (34-104) U/L Total Creatine Kinase 5697 H (30-223) U/L Total Protein 6.7 (6.0-8.3) gm/dl Albumin 4.0 (3.4-5.0) gm/dl Globulin 2.7 (2.5-4.0) gm/dl Albumin/Globulin Ratio 1.5 (0.9-2) Triglycerides (0-150) mg/dl Cholesterol (0-200) mg/dl LDL Cholesterol, Calc mg/dl VLDL Cholesterol, Calc (0-30) mg/dl HDL Cholesterol mg/dl Cholesterol/HDL Ratio (0-5) Vitamin B12 (180-914) pg/ml TSH 1.994 (0.300-4.500) uIu/ml Urine Color Urine Appearance Urine pH Ur Specific [place] Urine Protein Urine Glucose (UA) Urine Ketones Urine Blood Urine Nitrite Urine Bilirubin Urine Urobilinogen Ur Leukocyte Esterase Urine WBC (Auto) Urine RBC (Auto) U Hyaline Cast (Auto) U Epithel Cells (Auto) Urine Bacteria (Auto) Ur Renal Epithelial Cell Urine Crystals Calcium Oxalate Crystal Uric Acid Crystals Triple Phos Crystals Other Crystals Amorphous Sediment Granular Casts Waxy Casts RBC Casts WBC Casts Other Casts Urine Mucus Urine Other Urine Trichomonas Urine Yeast Urine Sperm Ur Oval Fat Bodies Salicylates (3.0-30) mg/dl Urine Opiates Screen (Neg) Ur Methadone, Qual (Neg) Acetaminophen (10-30) ug/ml Urine Barbiturates (Neg) Ur Phencyclidine (PCP) (Neg) U Amphetamin/Meth Scrn (Neg) MDMA (Ecstasy) Screen (Neg) U Benzodiazepines Scrn (Neg) Ur Cocaine Metabolite (Neg) U Marijuana (THC) Screen (Neg) Ethyl Alcohol mg/dL (<10.0) mg/dl Anaplasma Smear See Comment A. phagocytophilum DNA Babesia Smear See Comment Lyme Disease IgG Ab (Negative) Lyme Disease IgM Ab (Negative) Hepatitis A IgM Ab Hep Bs Antigen Hep Bs Ag Confirmation Hep B Core IgM Ab Hepatitis C Ab (EIA) Hep C Ab Signal/Cutoff SARS-CoV-2, RNA, NAAT (NEGATIVE) Diagnostic Findings QTc in ED EKG 490 (prolonged Qtc) Medications Administered Olanzapine (Olanzapine 10 Mg/2.1 Ml Sdv) 2.5 mg IM Q4H PRN PRN Reason: Anxiety/Agitation Stop: 04/04/22 00:42 Last Admin: 03/05/22 14:10 Dose: 2.5 mg Documented By: [facility] Admin: 03/05/22 10:08 Dose: 2.5 mg Documented By: [facility] Pantoprazole Sodium (Pantoprazole 40 Mg Tab) 40 mg PO DAILY [facility] Stop: 04/04/22 08:59 Last Admin: 03/05/22 10:42 Dose: Not Given Documented By: [facility] Risperidone (Risperidone 2 Mg Tablet) 2 mg PO QPM [facility] Stop: 04/03/22 22:13 Last Admin: 03/04/22 23:00 Dose: Not Given Documented By: ELICIA Coding Level of Care Code 92404 [facility] Int Hosp Care Lvl 2 Diagnoses Altered mental status R41.82 Altered mental status type: unspecified Rhabdomyolysis M62.82 Rhabdomyolysis type: non-traumatic Bipolar disorder F31.9
[2022-03-05] MEDS ORDERED: OLANZapine 10 MG/2.1 ML SDV IM PRN (15:34)
[2022-03-05] MEDS: LORazepam 1 MG in SYRINGE 0.5 ML IV PRN (17:24)
[2022-03-05] MEDS: LORazepam 1 MG in SYRINGE 0.5 ML IV SCH (20:32)
[2022-03-05] MEDS: risperiDONE 2 MG TABLET PO SCH (20:32)
--- NOTE | 2022-03-05 22:52 | Electrocardiogram Report ---
Test Reason : Blood Pressure : / mmHG Vent. Rate : 095 BPM Atrial Rate : 095 BPM P-R Int : 132 ms QRS Dur : 082 ms QT Int : 390 ms P-R-T Axes : 083 002 070 degrees QTc Int : 490 ms Poor data quality, interpretation may be adversely affected Sinus rhythm with frequent Premature ventricular complexes Right atrial enlargement Prolonged QT Abnormal ECG No previous ECGs available Confirmed by Fabricio Kumar ([id number]) on 03/05/2022 10:51:45 PM Referred By: REFERRED SELF Confirmed By:Fabricio Kumar
[2022-03-06] MEDS: SODIUM CHLORIDE 0.9% 1000ML 1,000 ML IV SCH (06:17)
[2022-03-06 06:51] LABS: Estimated Average Glucose 114 mg/dl; Hemoglobin A1C 5.6 % (4.5-5.6)
[2022-03-06 08:00] LABS: Hematocrit (blood only) 37.5 % (40.1-51.0); Hemoglobin 12.3 g/dl (14.0-18.0); Mean Corpuscular Hemoglobin 31.3 pg (25.0-34.0); Mean Corpuscular Hgb Conc 32.8 g/dL (32.0-36.0); Mean Corpuscular Volume 95.4 fL (80.0-100.0); Platelet Count 157 K/uL (130-400); RDW Coefficient of Variation 13.6 % (11.5-14.5); RDW Standard Deviation 47.5 fL (36.4-46.3); Red Blood Count 3.93 M/uL (4.63-6.08)
[2022-03-06 08:25] LABS: INR 1.1 (0.9-1.1); Prothrombin Time 11.8 Seconds (9.0-12.0)
[2022-03-06 08:32] LABS: BUN Creatinine Ratio 25.8 (10-20); Calcium 7.9 mg/dl (8.5-10.1); Creatinine Clr Calc Pharmacy 66.5 ml/min; Est GFR (African American) 95.4 ml/min; Est GFR (Non-African American) 82.3 ml/min; Potassium 3.9 mmol/L (3.5-5.1)
[2022-03-06 08:46] LABS: Albumin Globulin Ratio 1.6 (0.9-2); Bilirubin Direct 0.7 mg/dl (0-0.2); Bilirubin,Total 3.9 mg/dl (0.2-1.0); Globulin 1.9 gm/dl (2.5-4.0); Total Protein 4.9 gm/dl (6.0-8.3)
[2022-03-06] MEDS: LORazepam 1 MG in SYRINGE 0.5 ML IV PRN (09:30)
[2022-03-06] MEDS: LORazepam 1 MG in SYRINGE 0.5 ML IV SCH ×3 (09:30→21:24)
--- NOTE | 2022-03-06 10:30 | Hospitalist Progress Note ---
Date of Service March 06, 2022 Assessment & Plan (1) Rhabdomyolysis: Plan: -Continue IV fluids, elevated CK level of 5697->4800->2400. Will switch NSS to D5 1/2 NS due to hypoglycemia. repeat CK in am (2) Bipolar disorder: (3) Altered mental status: Plan: -CT of the brain is negative for any acute findings - UDS negative, no focal source of infection, lyme and other tick borne disease negative - Patient is on a 302, seen by psych- on ativan tid along with prn, risperidal and zyprexa prn. QTc 525- monitor. - currently on restraints as violent and uncooperative (4) Elevated bilirubin: (5) Transaminitis: Plan: - Repeat LFT improving, tick borne work up negative so far, hepatitis panel pending (6) Charles esophagus: Plan: continue PPI (7) DDD (degenerative disc disease): (8) B12 deficiency: Plan: B12 level normal. Prolonged QTc- monitor. avoid further QT prolonging agents metabolic acidosis- mild, stable, monitor. AG resolved. leucocytosis- resolved. likely reactive. DVT ppx: lovenox Dispo: on 302, doesn't have decision making capacity, can not leave AMA. Psych following. Admission and Anticipated Discharge Date Admission Date: March 04, 2022 Subjective . , Patient is currently sedated and restrained. No fever, vomiting or dyspnea. Physical Exam Physical Exam: General: Lying in bed, sedated and restrained Chest: Clear breath sounds anteriorly, no wheezes or crackles CVS: Regular rate and rhythm, normal heart sounds, no murmur Abdomen: Soft, not distended, normal bowel sounds Neuro: sedated Extremities: No edema Psych: on restraints Results & Data Results & Data ([facility]) Vital Signs (Past 12 Hours) Vital Signs Temp Pulse Pulse Resp BP Pulse Ox O2 Del Method 03/06/22 06:18 70 98 Room Air 03/06/22 06:04 37.6 C H 90 20 107/54 L Laboratory Results Short CBC 03/05/22 03/06/22 Range/Units 11:38 07:44 WBC 10.79 7.80 (4.8-10.8) K/ul Hgb 12.3 L 12.3 L (14.0-18.0) g/dl Hct 36.1 L 37.5 L (40.1-51.0) % Plt Count 172 157 (130-400) K/uL BMP 03/05/22 03/06/22 11:38 07:44 Sodium 143 141 Potassium 3.9 3.9 Chloride 113 H 113 H Carbon Dioxide 18 L 18 L BUN 25 H 24 H Creatinine 1.16 0.93 Glucose 76 68 L Calcium 8.6 7.9 L Cardiac Enzymes 03/05/22 03/06/22 Range/Units 11:38 07:44 Total Creatine Kinase 4838 H 2466 H (30-223) U/L Liver Function 03/05/22 03/06/22 Range/Units 11:38 07:44 Total Bilirubin 4.6 H 3.9 H (0.2-1.0) mg/dl Direct Bilirubin 0.7 H 0.7 H (0-0.2) mg/dl AST 137 H 101 H (13-39) U/L ALT 55 H 52 (7-52) U/L Alkaline Phosphatase 61 54 (34-104) U/L Albumin 3.4 3.0 L (3.4-5.0) gm/dl Medications Administered Current Inpatient Medications Acetaminophen (Acetaminophen 325 Mg Tab) 650 mg PO Q4H PRN PRN Reason: Moderate Pain Stop: 04/03/22 22:13 Lorazepam 1 mg/ Syringe 1 mls @ 2 mls/min IV Q6H PRN PRN Reason: Anxiety Stop: 04/04/22 15:31 Last Admin: 03/05/22 17:24 Dose: 2 mls/min Lorazepam 1 mg/ Syringe 1 mls @ 2 mls/min IV TID [facility] Stop: 04/04/22 20:59 Last Admin: 03/06/22 09:30 Dose: 2 mls/min Dextrose/Sodium Chloride (D5w And 1/2nss) 1,000 mls @ 150 mls/hr IV .Q6H40M [facility] Stop: 04/05/22 10:29 Olanzapine (Olanzapine 10 Mg/2.1 Ml Sdv) 5 mg IM Q6H PRN PRN Reason: Anxiety/Agitation Stop: 04/04/22 15:33 Ondansetron HCl (Ondansetron Inj 2 Mg/Ml 2 Ml Vial) 4 mg IV Q4H PRN PRN Reason: Nausea And Vomiting Stop: 04/03/22 22:13 Pantoprazole Sodium (Pantoprazole 40 Mg Tab) 40 mg PO DAILY [facility] Stop: 04/04/22 08:59 Last Admin: 03/05/22 10:42 Dose: Not Given Risperidone (Risperidone 2 Mg Tablet) 2 mg PO QPM [facility] Stop: 04/03/22 22:13 Last Admin: 03/05/22 20:32 Dose: Not Given (1) Rhabdomyolysis Rhabdomyolysis type: non-traumatic Qualified Code(s): M62.82 - Rhabdomyolysis (2) Altered mental status Altered mental status type: unspecified Qualified Code(s): R41.82 - Altered mental status, unspecified
[2022-03-06] MEDS: PANTOprazole 40 MG TAB PO SCH (10:54)
[2022-03-06] MEDS: D5W AND 1/2NSS 1,000 ML IV SCH ×2 (10:58→18:05)
[2022-03-06] MEDS: PANTOprazole 40 MG in SYRINGE 0 ML IV SCH (12:23)
--- NOTE | 2022-03-06 12:36 | Electrocardiogram Report ---
Test Reason : Blood Pressure : / mmHG Vent. Rate : 080 BPM Atrial Rate : 080 BPM P-R Int : 136 ms QRS Dur : 086 ms QT Int : 400 ms P-R-T Axes : 078 010 055 degrees QTc Int : 462 ms Sinus rhythm with frequent Premature ventricular complexes Abnormal ECG When compared with ECG of 04-MAR-2022 16:59, No significant change was found Confirmed by Kiet Duron ([id number]) on 03/06/2022 12:36:04 PM Referred By: REFERRED SELF Confirmed By:Silvestre Duron
--- NOTE | 2022-03-06 13:42 | Psychiatric Progress Note ---
Date of Service March 06, 2022 Impression / Recommendations Impression 71 yo male with 1 month of med non compliance with longstanding antipsychotic medication/mood stabilizer with acute AMS with rhabdo in the setting of paranoia. Unclear how much is delirium vs primary psychosis vs carmen vs agitated catatonia (which can be seen in both mood disorders and schizophrenia.) confirms his dx is schizophrenia and not bipolar do. (1) Altered mental status: (2) Rhabdomyolysis: (3) Schizophrenia: Plan Dr. Tubbs updated, although Ativan could be contributing to sedation, patient was sleep deprived and received 10 mg Zyprexa yesterday. I do believe Ativan is treating the catatonic component and Ativan also preferred over antipsychotics given QTc. Will offer Risperdal 1 mg tonight and reassess appropriateness for BID tomorrow. Ultimately may benefit to switch to Invega for KURTZ. Interval History Identifying Information 71 yo male with a history of psychosis (?bipolar) from [facility] who had gone missing. He was admitted to medicine 03/04/22 for rhabdo after being found wandering in a swampy area. Chief Complaint agitation Review of Systems Notes patient is unable to complete due to AMS. Subjective Subjective Patient was seen & assessed and interval progress reviewed with nursing. Patient sleeping soundly this am, did not require additional Zyprexa overnight. IV Ativan appears effective for his repetitive rantings and agitation. QTc is normalized on EKG and labs are also improving. Still hasn't been taking PO meds by mouth. Liaison was able to confirm with that Risperdal was written 2 mg daily but took 1 mg BId previously. Physical Exam Psychiatric unable to complete as sleeping, allowing patient to rest due to severity of agitation yesterday. Vital Signs (Past 24 Hours) Last Vital Signs Temp 37.6 C H 03/06/22 06:04 Pulse 70 03/06/22 06:18 Resp 20 03/06/22 06:04 BP 107/54 L 03/06/22 06:04 Pulse Ox 98 03/06/22 06:18 O2 Del Method 03/06/22 06:18 Results & Data ([facility]) Laboratory Results Laboratory Results - last 24 hr 03/05/22 03/05/22 03/05/22 11:38 11:38 11:38 WBC RBC Hgb Hct MCV MCH MCHC RDW Std Deviation RDW Coeff of Leyla Plt Count MPV PT INR Sodium 143 Potassium 3.9 Chloride 113 H Carbon Dioxide 18 L Anion Gap 12 H BUN 25 H Creatinine 1.16 Est Cr Clr Drug Dosing 53.3 Est GFR ( Amer) 73.0 Est GFR (Non-Af Amer) 63.0 BUN/Creatinine Ratio 21.6 H Glucose 76 Estimat Average Glucose 114 Hemoglobin A1c 5.6 Calcium 8.6 Phosphorus 3.3 Magnesium 2.0 Total Bilirubin 4.6 H Direct Bilirubin 0.7 H AST 137 H ALT 55 H Alkaline Phosphatase 61 Total Creatine Kinase Total Protein 5.7 L Albumin 3.4 Globulin 2.3 L Albumin/Globulin Ratio 1.5 Triglycerides 70 Cholesterol 98 LDL Cholesterol, Calc 25 VLDL Cholesterol, Calc 14 HDL Cholesterol 59 Cholesterol/HDL Ratio 1.7 Babesia microti DNA PCR Pending 03/05/22 03/06/22 03/06/22 11:38 07:44 07:44 WBC 7.80 RBC 3.93 L Hgb 12.3 L Hct 37.5 L MCV 95.4 MCH 31.3 MCHC 32.8 RDW Std Deviation 47.5 H RDW Coeff of Leyla 13.6 Plt Count 157 MPV 10.0 PT 11.8 INR 1.1 Sodium Potassium Chloride Carbon Dioxide Anion Gap BUN Creatinine Est Cr Clr Drug Dosing Est GFR ( Amer) Est GFR (Non-Af Amer) BUN/Creatinine Ratio Glucose Estimat Average Glucose Hemoglobin A1c Calcium Phosphorus Magnesium Total Bilirubin Direct Bilirubin AST ALT Alkaline Phosphatase Total Creatine Kinase 4838 H Total Protein Albumin Globulin Albumin/Globulin Ratio Triglycerides Cholesterol LDL Cholesterol, Calc VLDL Cholesterol, Calc HDL Cholesterol Cholesterol/HDL Ratio Babesia microti DNA PCR 03/06/22 07:44 WBC RBC Hgb Hct MCV MCH MCHC RDW Std Deviation RDW Coeff of Leyla Plt Count MPV PT INR Sodium 141 Potassium 3.9 Chloride 113 H Carbon Dioxide 18 L Anion Gap 10 BUN 24 H Creatinine 0.93 Est Cr Clr Drug Dosing 66.5 Est GFR ( Amer) 95.4 Est GFR (Non-Af Amer) 82.3 BUN/Creatinine Ratio 25.8 H Glucose 68 L Estimat Average Glucose Hemoglobin A1c Calcium 7.9 L Phosphorus Magnesium Total Bilirubin 3.9 H Direct Bilirubin 0.7 H AST 101 H ALT 52 Alkaline Phosphatase 54 Total Creatine Kinase 2466 H Total Protein 4.9 L Albumin 3.0 L Globulin 1.9 L Albumin/Globulin Ratio 1.6 Triglycerides Cholesterol LDL Cholesterol, Calc VLDL Cholesterol, Calc HDL Cholesterol Cholesterol/HDL Ratio Babesia microti DNA PCR Current Inpatient Medications Current Inpatient Medications: Current Inpatient Medications Acetaminophen (Acetaminophen 325 Mg Tab) 650 mg PO Q4H PRN PRN Reason: Moderate Pain Stop: 04/03/22 22:13 Lorazepam 1 mg/ Syringe 1 mls @ 2 mls/min IV Q6H PRN PRN Reason: Anxiety Stop: 04/04/22 15:31 Last Admin: 03/05/22 17:24 Dose: 2 mls/min Lorazepam 1 mg/ Syringe 1 mls @ 2 mls/min IV TID [facility] Stop: 04/04/22 20:59 Last Admin: 03/06/22 09:30 Dose: 2 mls/min Dextrose/Sodium Chloride (D5w And 1/2nss) 1,000 mls @ 150 mls/hr IV .Q6H40M [facility] Stop: 04/05/22 10:29 Last Admin: 03/06/22 10:58 Dose: 150 mls/hr Pantoprazole Sodium 40 mg/ (Syringe) 10 mls @ 5 mls/min IV DAILY@1100 [facility] Stop: 04/05/22 10:59 Last Admin: 03/06/22 12:23 Dose: 5 mls/min Olanzapine (Olanzapine 10 Mg/2.1 Ml Sdv) 5 mg IM Q6H PRN PRN Reason: Anxiety/Agitation Stop: 04/04/22 15:33 Ondansetron HCl (Ondansetron Inj 2 Mg/Ml 2 Ml Vial) 4 mg IV Q4H PRN PRN Reason: Nausea And Vomiting Stop: 04/03/22 22:13 Pantoprazole Sodium (Pantoprazole 40 Mg Tab) 40 mg PO DAILY [facility] Stop: 04/04/22 08:59 Last Admin: 03/06/22 10:54 Dose: Not Given (1) Rhabdomyolysis Rhabdomyolysis type: non-traumatic Qualified Code(s): M62.82 - Rhabdomyolysis (2) Altered mental status Altered mental status type: unspecified Qualified Code(s): R41.82 - Altered mental status, unspecified
[2022-03-06] MEDS ORDERED: XOPENEX/ATROVENT 1.25mg/0.5MG NEB COMBO NEB STA (20:52)
[2022-03-06] MEDS ORDERED: IPRATROPIUM BROMIDE NEB SOLN 0.02% 2.5 ML VIAL INH STA (20:53)
[2022-03-06] MEDS ORDERED: LEVALBUTEROL 1.25MG/0.5ML NEB INH STA (20:54)
[2022-03-06] MEDS ORDERED: risperiDONE 1 MG TABLET PO SCH (21:00)
[2022-03-06] MEDS ORDERED: ACETAMINOPHEN 1000 MG/100 ML IV IV ONE (21:02)
--- NOTE | 2022-03-06 21:04 | Communication Note ---
Date of Service: March 06, 2022 And lung sounds moist/coarse and junky as per RN. O2 sats later noted to be 70s on room air, temperature of 39. Patient noted to be drowsy. Chest x-ray as per my interpretation right-sided infiltrate AP Severe sepsis SIRS plus hypoxemic respiratory failure Likely secondary to hospital-acquired pneumonia, likely aspiration secondary to lethargy Supplemental O2 Baseline ABG CS, lactic acid Zosyn Nebs, Solu-Medrol 1 dose given hypoxemia Aspiration precautions Swallow eval Appropriate to hold RTC IV Ativan for now until patient awake. Will relay to AM provider.
[2022-03-06] MEDS ORDERED: PIPERACILLIN/TAZOBACTAM 4.5 GM in DEXTROSE 5% 100 ML IV ONE (21:33)
[2022-03-06] MEDS ORDERED: methylPREDNISolone 40 MG in SYRINGE 0 ML IV STA (21:36)
[2022-03-06 21:51] LABS: Base Excess ABG -3.9 mEq/L (-9-1.8); HCO3 ABG 18 mmol/L (19-24); Oxygen Saturation ABG 99.3 % (90-95); PCO2 ABG 23 mmHg (35-46); PO2 ABG 106 mmHg (80-95); pH ABG 7.49 (7.35-7.45)
[2022-03-06 21:55] LABS: Allen Test POS (Pos)
[2022-03-06] MEDS ORDERED: Nursing to Pharmacy Communication SCH (22:00)
[2022-03-06 22:07] LABS: Partial Thromboplastin Ratio 0.8; Partial Thromboplastin Time 22.7 Seconds (21.0-31.0)
[2022-03-06] MEDS ORDERED: risperiDONE 0.5 MG TABLET PO ONE (23:30)
[2022-03-06] MEDS ORDERED: risperiDONE ODT 0.5 MG SOLTAB PO ONE (23:30)
[2022-03-07 03:21] LABS: HBSAG NON-REACTIVE (NON-REACTIVE); Hepatitis A Antibody IgM NON-REACTIVE (NON-REACTIVE); Hepatitis B Core Antibody IgM NON-REACTIVE (NON-REACTIVE)
[2022-03-07] MEDS ORDERED: PIPERACILLIN/TAZOBACTAM 3.375 GM in DEXTROSE 5% 100 ML IV SCH (04:00)
[2022-03-07] MEDS ORDERED: LORazepam 0.5 MG in SYRINGE 0.5 ML IV PRN (05:48)
--- NOTE | 2022-03-07 05:55 | Communication Note ---
Date of Service: March 07, 2022 Interim progress reviewed. Patient was calmer overall during the day, hs dose of Ativan was held due to sedation. Patient still has been unable to take PO meds so did not receive the 1 mg of Risperdal. Order changed to M tab. Did not require any IM Zyprexa yesterday. Now has BC pending. CXR obtained, reported pending. Agree with holding Ativan by primary service. Ativan prn if needed should resume at 0.5 mg. Zyprexa IM decreased to 2.5 mg now that acute agitation has passed. Will follow.
[2022-03-07 06:11] LABS: Hematocrit (blood only) 37.7 % (40.1-51.0); Hemoglobin 12.5 g/dl (14.0-18.0); Mean Corpuscular Hemoglobin 31.5 pg (25.0-34.0); Mean Corpuscular Hgb Conc 33.2 g/dL (32.0-36.0); Mean Platelet Volume 10.1 fL (9.4-12.4); Platelet Count 145 K/uL (130-400); RDW Coefficient of Variation 13.2 % (11.5-14.5); RDW Standard Deviation 45.9 fL (36.4-46.3); Red Blood Count 3.97 M/uL (4.63-6.08)
[2022-03-07 06:22] LABS: INR 1.2 (0.9-1.1); Prothrombin Time 12.4 Seconds (9.0-12.0)
[2022-03-07 06:36] LABS: Albumin Globulin Ratio 1.3 (0.9-2); Albumin Level 2.8 gm/dl (3.4-5.0); BUN Creatinine Ratio 20.4 (10-20); Bilirubin Direct 0.8 mg/dl (0-0.2); Bilirubin,Total 3.9 mg/dl (0.2-1.0); Calcium 7.9 mg/dl (8.5-10.1); Est GFR (African American) 84.3 ml/min; Est GFR (Non-African American) 72.7 ml/min; Globulin 2.1 gm/dl (2.5-4.0); Potassium 4.2 mmol/L (3.5-5.1); Total Protein 4.9 gm/dl (6.0-8.3)
[2022-03-07] MEDS ORDERED: LORazepam 0.5 MG in SYRINGE 0.5 ML IV SCH (09:15)
--- NOTE | 2022-03-07 09:43 | XRay Report ---
XR chest 1V portable HISTORY: Abnormal breath sounds. COMPARISON: None. FINDINGS: No pneumothorax. No pleural effusions. The heart is top normal in size. There are patchy bi lateral perihilar airspace opacities, right greater than left. This likely represents a multifocal pn eumonia. The lungs are hyperexpanded with mild apical predominant emphysematous changes. No evidence for pulmonary edema. IMPRESSION: There are patchy bilateral perihilar airspace opacities, right greater than left. This likely represe nts a multifocal pneumonia. ACT 112: Negative or not required by law. Electronically signed by: Sahil Lainez M.D. 03/07/2022 9:16 AM
[2022-03-07] MEDS ORDERED: LORazepam 0.5 MG in SYRINGE 0.25 ML IV SCH (09:45)
[2022-03-07] MEDS ORDERED: LORazepam 0.5 MG in SYRINGE 0.25 ML IV PRN (10:34)
[2022-03-07] MEDS: PANTOprazole 40 MG in SYRINGE 0 ML IV SCH (11:55)
[2022-03-07] MEDS ORDERED: AMOXICILLIN/CLAVULANATE 875 MG TAB PO SCH (12:15)
[2022-03-07 13:54] LABS: A calco-baum cmplx NotReported Not Detected (NotDetected); Bact fragilis Not Reported Not Detected (NotDetected); C auris Not Reported Not Detected (NotDetected); Calbicans Not Reported Not Detected (NotDetected); Candida glabrata Not Reported Not Detected (NotDetected); Candida krusei Not Reported Not Detected (NotDetected); Cneoformans/gatti Not Reported Not Detected (NotDetected); Cparapsilosis Not Reported Not Detected (NotDetected); Ctropicalis Not Reported Not Detected (NotDetected); E cloacae compx Not Reported Not Detected (NotDetected); Efaecalis Not Reported Not Detected (NotDetected); Efaecium Not Reported Not Detected (NotDetected); Enterobacterales Not Reported Not Detected (NotDetected); Escherichia coli Not Reported Not Detected (NotDetected); H influenzae Not Reported Not Detected (NotDetected); K aerogenes Not Reported Not Detected (NotDetected); Koxytoca Not Reported Not Detected (NotDetected); Kpneumoniae grp Not Reported Not Detected (NotDetected); Lmonocyt Not Reported Not Detected (NotDetected); N meningitidis Not Reported Not Detected (NotDetected); P aeruginosa Not Reported Not Detected (NotDetected); Proteus spp Not Reported Not Detected (NotDetected); Salmonella spp Not Reported Not Detected (NotDetected); Smarcescens Not Reported Not Detected (NotDetected); Staph lugdunensis Not Reported Not Detected (NotDetected); Staph spp. Not Reported DETECTED (NotDetected); Staphaureus Not Reported DETECTED (NotDetected); Staphepi Not Reported Not Detected (NotDetected); Staphylococcus spp. DETECTED (NotDetected); Stenmaltophilia Not Reported Not Detected (NotDetected); Strep agal(GrpB) Not Reported Not Detected (NotDetected); Strep pneum Not Reported Not Detected (NotDetected); Strep pyog (GrpA) Not Reported Not Detected (NotDetected); Strep spp Not Reported Not Detected (NotDetected); mecAC+MREJ Resistant Gene MRSA Not Detected (NotDetected)
[2022-03-07] MEDS ORDERED: LORazepam 2 MG/1 ML VIAL IM STA (15:35)
--- NOTE | 2022-03-07 15:35 | Psychiatric Progress Note ---
Date of Service March 07, 2022 Impression / Recommendations Impression 71 yo male with 1 month of med non compliance with longstanding antipsychotic medication/mood stabilizer with acute AMS with rhabdo in the setting of paranoia. Unclear how much is delirium vs primary psychosis vs carmen vs agitated catatonia (which can be seen in both mood disorders and schizophrenia.) confirms his dx is schizophrenia and not bipolar do. 03/07/22: ongoing AMS, pneumonia/bacteremia identified. (1) Altered mental status: (2) Rhabdomyolysis: (3) Schizophrenia: Plan Risperdal is ordered as M Tab when he is able to take it can resume Ativan at lower dose at discretion of Dr. Tubbs, would currently need to be given IM 1 mg for sedation to reestablish IV access for antibiotics, otherwise 0.5 is recommended Interval History Identifying Information 71 yo male with a history of psychosis (?bipolar) from [facility] who had gone missing. He was admitted to medicine 03/04/22 for rhabdo after being found wandering in a swampy area. Chief Complaint AMS, periods of severe agitation/psychosis required sedation, oxygen overnight Review of Systems Notes patient unable to answer Subjective Subjective Patient was seen & assessed and interval progress reviewed with nursing, briefly Dr. Tubbs as patient now with multifocal pneumonia and blood +staph. when is awake returns to repetitive speech about scams/rocks. Physical Exam Psychiatric sleeping this am during rounds after code shane Vital Signs (Past 24 Hours) Last Vital Signs Temp 37 C 03/07/22 07:07 Pulse 61 03/07/22 13:57 Resp 18 03/07/22 07:07 BP 107/65 03/07/22 07:07 Pulse Ox 94 03/07/22 13:57 O2 Del Method 03/07/22 13:57 O2 Flow Rate 5 03/07/22 07:50 Results & Data ([facility]) Laboratory Results Laboratory Results - last 24 hr 03/05/22 03/06/22 03/06/22 11:38 21:20 21:20 WBC RBC Hgb Hct MCV MCH MCHC RDW Std Deviation RDW Coeff of Leyla Plt Count MPV PT INR APTT PTT Ratio ABG pH ABG pCO2 ABG pO2 ABG HCO3 ABG O2 Saturation ABG Base Excess Theodore Test Oxygen Given Sodium Potassium Chloride Carbon Dioxide Anion Gap BUN Creatinine Est Cr Clr Drug Dosing Est GFR ( Amer) Est GFR (Non-Af Amer) BUN/Creatinine Ratio Glucose POC Glucose Lactate 0.8 Calcium Total Bilirubin Direct Bilirubin AST ALT Alkaline Phosphatase Ammonia Total Creatine Kinase Total Protein Albumin Globulin Albumin/Globulin Ratio Procalcitonin 0.14 Hepatitis A IgM Ab NON-REACTIVE Hep Bs Antigen NON-REACTIVE Hep Bs Ag Confirmation TNP Hep B Core IgM Ab NON-REACTIVE Hepatitis C Ab (EIA) NON-REACTIVE Hep C Ab Signal/Cutoff 0.03 Staphylococcus sp PCR Staph aureus (PCR) mecA/C & MREJ Resist Gene Bld Cult ID Panel PCR 03/06/22 03/06/22 03/06/22 21:20 21:20 21:20 WBC RBC Hgb Hct MCV MCH MCHC RDW Std Deviation RDW Coeff of Leyla Plt Count MPV PT INR APTT 22.7 PTT Ratio 0.8 ABG pH 7.49 H ABG pCO2 23 L ABG pO2 106 H ABG HCO3 18 L ABG O2 Saturation 99.3 H ABG Base Excess -3.9 Theodore Test POS Oxygen Given 5 L Sodium Potassium Chloride Carbon Dioxide Anion Gap BUN Creatinine Est Cr Clr Drug Dosing Est GFR ( Amer) Est GFR (Non-Af Amer) BUN/Creatinine Ratio Glucose POC Glucose Lactate Calcium Total Bilirubin Direct Bilirubin AST ALT Alkaline Phosphatase Ammonia 31.0 Total Creatine Kinase Total Protein Albumin Globulin Albumin/Globulin Ratio Procalcitonin Hepatitis A IgM Ab Hep Bs Antigen Hep Bs Ag Confirmation Hep B Core IgM Ab Hepatitis C Ab (EIA) Hep C Ab Signal/Cutoff Staphylococcus sp PCR Staph aureus (PCR) mecA/C & MREJ Resist Gene Bld Cult ID Panel PCR 03/06/22 03/06/22 03/07/22 21:20 21:52 05:51 WBC 6.60 RBC 3.97 L Hgb 12.5 L Hct 37.7 L MCV 95.0 MCH 31.5 MCHC 33.2 RDW Std Deviation 45.9 RDW Coeff of Leyla 13.2 Plt Count 145 MPV 10.1 PT INR APTT PTT Ratio ABG pH ABG pCO2 ABG pO2 ABG HCO3 ABG O2 Saturation ABG Base Excess Theodore Test Oxygen Given Sodium Potassium Chloride Carbon Dioxide Anion Gap BUN Creatinine Est Cr Clr Drug Dosing Est GFR ( Amer) Est GFR (Non-Af Amer) BUN/Creatinine Ratio Glucose POC Glucose 127 H Lactate Calcium Total Bilirubin Direct Bilirubin AST ALT Alkaline Phosphatase Ammonia Total Creatine Kinase Total Protein Albumin Globulin Albumin/Globulin Ratio Procalcitonin Hepatitis A IgM Ab Hep Bs Antigen Hep Bs Ag Confirmation Hep B Core IgM Ab Hepatitis C Ab (EIA) Hep C Ab Signal/Cutoff Staphylococcus sp PCR DETECTED A Staph aureus (PCR) DETECTED A mecA/C & MREJ Resist Gene MRSA Not Detected Bld Cult ID Panel PCR See PCR Comment 03/07/22 03/07/22 05:51 05:51 WBC RBC Hgb Hct MCV MCH MCHC RDW Std Deviation RDW Coeff of Leyla Plt Count MPV PT 12.4 H INR 1.2 H APTT PTT Ratio ABG pH ABG pCO2 ABG pO2 ABG HCO3 ABG O2 Saturation ABG Base Excess Theodore Test Oxygen Given Sodium 138 Potassium 4.2 Chloride 109 H Carbon Dioxide 21 Anion Gap 8 BUN 21 Creatinine 1.03 Est Cr Clr Drug Dosing 60.0 Est GFR ( Amer) 84.3 Est GFR (Non-Af Amer) 72.7 BUN/Creatinine Ratio 20.4 H Glucose 158 H POC Glucose Lactate Calcium 7.9 L Total Bilirubin 3.9 H Direct Bilirubin 0.8 H AST 50 H ALT 41 Alkaline Phosphatase 44 Ammonia Total Creatine Kinase 803 H Total Protein 4.9 L Albumin 2.8 L Globulin 2.1 L Albumin/Globulin Ratio 1.3 Procalcitonin Hepatitis A IgM Ab Hep Bs Antigen Hep Bs Ag Confirmation Hep B Core IgM Ab Hepatitis C Ab (EIA) Hep C Ab Signal/Cutoff Staphylococcus sp PCR Staph aureus (PCR) mecA/C & MREJ Resist Gene Bld Cult ID Panel PCR Current Inpatient Medications Current Inpatient Medications: Current Inpatient Medications Acetaminophen (Acetaminophen 325 Mg Tab) 650 mg PO Q4H PRN PRN Reason: Moderate Pain Stop: 04/03/22 22:13 Dextrose/Sodium Chloride (D5w And 1/2nss) 1,000 mls @ 80 mls/hr IV .[id number] [facility] Stop: 04/05/22 10:29 Last Infusion: 03/06/22 22:01 Dose: Infused Pantoprazole Sodium 40 mg/ (Syringe) 10 mls @ 5 mls/min IV DAILY@1100 [facility] Stop: 04/05/22 10:59 Last Admin: 03/07/22 11:55 Dose: Not Given Lorazepam 0.5 mg/ Syringe 0.5 mls @ 2 mls/min IV TID PRN PRN Reason: agitation Stop: 04/06/22 09:44 Ceftriaxone Sodium 2,000 mg/ (Dextrose) 70 mls @ 100 mls/hr IV Q24H [facility]; Protocol Stop: 03/21/22 14:59 Metronidazole (Flagyl) 500 mg in 100 mls @ 100 mls/hr IV Q8H [facility]; Protocol Stop: 03/14/22 14:29 Olanzapine (Olanzapine 10 Mg/2.1 Ml Sdv) 2.5 mg IM Q6H PRN PRN Reason: Anxiety/Agitation Stop: 04/04/22 15:33 Ondansetron HCl (Ondansetron Inj 2 Mg/Ml 2 Ml Vial) 4 mg IV Q4H PRN PRN Reason: Nausea And Vomiting Stop: 04/03/22 22:13 Pantoprazole Sodium (Pantoprazole 40 Mg Tab) 40 mg PO DAILY [facility] Stop: 04/04/22 08:59 Last Admin: 03/06/22 10:54 Dose: Not Given Risperidone (Risperidone Odt 1mg) 1 mg PO QPM [facility] Stop: 04/05/22 23:29 (1) Altered mental status Altered mental status type: unspecified Qualified Code(s): R41.82 - Altered mental status, unspecified (2) Rhabdomyolysis Rhabdomyolysis type: non-traumatic Qualified Code(s): M62.82 - Rhabdomyolysis
[2022-03-07] MEDS ORDERED: LORazepam 2 MG in SYRINGE 1 ML IV STA (15:44)
--- NOTE | 2022-03-07 16:00 | Hospitalist Progress Note ---
Date of Service March 07, 2022 Assessment & Plan (1) Gram-positive cocci bacteremia: Plan: 71 yo male with a history of psychosis (?bipolar) from [facility] who had gone missing. He was admitted to medicine 03/04/22 for rhabdo after being found wandering in a swampy area. MSSA bacteremia Blood clx 03/06 with Staph aureus, no MRSA. Will start on ceftriaxone for once a day dosing given his refusal of care and pulling out IV multiple times. Repeat blood clx in am. Echo when he is more compliant. Consult ID. Discussed with pharmacy and psych. Will give 1 dose im ativan to sedate so we can have an iv access and start on iv antibiotics for bacteremia and aspiration PNA. (2) Aspiration pneumonia: Plan: CXR overnight shows multifocal PNA, likely aspiration PNA. Received zosyn but since then pulled out IV and has no access and refusing all oral medications. Plan for rocephin/flagyl for now. He was hypoxic overnight but currently saturating well in room air. Received a dose of solumedrol last night. (3) Schizophrenia: Plan: Psych following. On risperidal. zyprexa prn. Ativan 0.5 mg tid prn (4) Rhabdomyolysis: Plan: -s/p iv fluids, elevated CK level of 5697->4800->2400. continue IVF. recheck in am (5) Altered mental status: Plan: -CT of the brain is negative for any acute findings - UDS negative, no focal source of infection, lyme and other tick borne disease negative - Patient is on a 302, psych following (6) Elevated bilirubin: (7) Transaminitis: Plan: - Repeat LFT improving, tick borne work up negative so far, hepatitis panel pending (8) Charles esophagus: Plan: continue PPI (9) DDD (degenerative disc disease): Plan DVT ppx: lovenox Dispo: on 302, doesn't have decision making capacity, can not leave AMA. Psych following. Admission and Anticipated Discharge Date Admission Date: March 04, 2022 Subjective Overnight events were noted with hypoxia and pneumonia, however he is saturating well in room air today. He is refusing all care today. States we are all fake and repeating about scams/rocks. He asked to speak to a doctor to RN but when I went to talk to him, he refused to talk to me stating I am fake and requested for a real doctor- he could not be convinced or assured despite multiple attempts or proof. I was however able to examine him this morning. He has pulled out his IV line multiple times and refusing to take oral meds either. He had a code shane this morning too. Physical Exam 2 Physical Exam: General: Sitting in bed, awake, alert, on room air, not in acute distress Chest: Fair breath sounds anteriorly, no wheezes or crackles CVS: Regular rate and rhythm, normal heart sounds, no murmur Abdomen: Soft, not distended, normal bowel sounds Neuro: awake, alert, talking fluently Extremities: No edema Psych: calm, non cooperative Results & Data Results & Data ([facility]) Vital Signs (Past 12 Hours) Vital Signs Temp Pulse Resp BP Pulse Ox O2 Del Method O2 Flow Rate 03/07/22 13:57 61 94 Room Air 03/07/22 07:50 Oxymask 5 03/07/22 10:39 99 Room Air 03/07/22 07:07 37 C 63 18 107/65 98 Oxymask 5 Laboratory Results Short CBC 03/07/22 Range/Units 05:51 WBC 6.60 (4.8-10.8) K/ul Hgb 12.5 L (14.0-18.0) g/dl Hct 37.7 L (40.1-51.0) % Plt Count 145 (130-400) K/uL BMP 03/07/22 05:51 Sodium 138 Potassium 4.2 Chloride 109 H Carbon Dioxide 21 BUN 21 Creatinine 1.03 Glucose 158 H Calcium 7.9 L Cardiac Enzymes 03/07/22 Range/Units 05:51 Total Creatine Kinase 803 H (30-223) U/L Liver Function 03/07/22 Range/Units 05:51 Total Bilirubin 3.9 H (0.2-1.0) mg/dl Direct Bilirubin 0.8 H (0-0.2) mg/dl AST 50 H (13-39) U/L ALT 41 (7-52) U/L Alkaline Phosphatase 44 (34-104) U/L Albumin 2.8 L (3.4-5.0) gm/dl Diagnostic Findings Chest X-Ray 03/06/22 20:51 XR chest 1V portable HISTORY: Abnormal breath sounds. COMPARISON: None. FINDINGS: No pneumothorax. No pleural effusions. The heart is top normal in size. There are patchy bilateral perihilar airspace opacities, right greater than left. This likely represents a multifocal pneumonia. The lungs are hyperexpanded with mild apical predominant emphysematous changes. No evidence for pulmonary edema. IMPRESSION: There are patchy bilateral perihilar airspace opacities, right greater than left. This likely represents a multifocal pneumonia. ACT 112: Negative or not required by law. Electronically signed by: Sahil Lainez M.D. 03/07/2022 9:16 AM Medications Administered Current Inpatient Medications Acetaminophen (Acetaminophen 325 Mg Tab) 650 mg PO Q4H PRN PRN Reason: Moderate Pain Stop: 04/03/22 22:13 Dextrose/Sodium Chloride (D5w And 1/2nss) 1,000 mls @ 80 mls/hr IV .[id number] [facility] Stop: 04/05/22 10:29 Last Infusion: 03/06/22 22:01 Dose: Infused Pantoprazole Sodium 40 mg/ (Syringe) 10 mls @ 5 mls/min IV DAILY@1100 [facility] Stop: 04/05/22 10:59 Last Admin: 03/07/22 11:55 Dose: Not Given Lorazepam 0.5 mg/ Syringe 0.5 mls @ 2 mls/min IV TID PRN PRN Reason: agitation Stop: 04/06/22 09:44 Ceftriaxone Sodium 2,000 mg/ (Dextrose) 70 mls @ 100 mls/hr IV Q24H [facility]; Protoc ol Stop: 03/21/22 14:59 Metronidazole (Flagyl) 500 mg in 100 mls @ 100 mls/hr IV Q8H [facility]; Protocol Stop: 03/14/22 14:29 Olanzapine (Olanzapine 10 Mg/2.1 Ml Sdv) 2.5 mg IM Q6H PRN PRN Reason: Anxiety/Agitation Stop: 04/04/22 15:33 Ondansetron HCl (Ondansetron Inj 2 Mg/Ml 2 Ml Vial) 4 mg IV Q4H PRN PRN Reason: Nausea And Vomiting Stop: 04/03/22 22:13 Pantoprazole Sodium (Pantoprazole 40 Mg Tab) 40 mg PO DAILY [facility] Stop: 04/04/22 08:59 Last Admin: 03/06/22 10:54 Dose: Not Given Risperidone (Risperidone Odt 1mg) 1 mg PO QPM [facility] Stop: 04/05/22 23:29 (1) Rhabdomyolysis Rhabdomyolysis type: non-traumatic Qualified Code(s): M62.82 - Rhabdomyolysis (2) Altered mental status Altered mental status type: unspecified Qualified Code(s): R41.82 - Altered mental status, unspecified
[2022-03-07] MEDS: cefTRIAXone SODIUM 2,000 MG in DEXTROSE 5% 50 ML IV SCH (17:00)
[2022-03-07] MEDS: metroNIDAZOLE 500 MG/100 ML BAG IV SCH ×2 (17:00→22:24)
[2022-03-07] MEDS: D5W AND 1/2NSS 1,000 ML IV SCH (18:09)
[2022-03-08] MEDS: D5W AND 1/2NSS 1,000 ML IV SCH ×2 (05:30→22:05)
[2022-03-08] MEDS: metroNIDAZOLE 500 MG/100 ML BAG IV SCH ×3 (05:30→22:03)
[2022-03-08] MEDS: OLANZapine 10 MG/2.1 ML SDV IM PRN (09:22)
--- NOTE | 2022-03-08 10:17 | Electrocardiogram Report ---
Test Reason : Blood Pressure : / mmHG Vent. Rate : 075 BPM Atrial Rate : 075 BPM P-R Int : 128 ms QRS Dur : 088 ms QT Int : 402 ms P-R-T Axes : 084 008 061 degrees QTc Int : 448 ms Sinus rhythm with PVCs Otherwise normal ECG When compared with ECG of 06-MAR-2022 09:38, T wave amplitude has increased in Lateral leads QT has shortened Confirmed by Kiet Duron ([id number]) on 03/08/2022 10:16:42 AM Referred By: REFERRED SELF Confirmed By:Silvestre Duron
[2022-03-08] MEDS ORDERED: LORazepam 2 MG/1 ML VIAL IM ONE (10:30)
[2022-03-08] MEDS: ENOXAPARIN INJ 40 MG/0.4 ML SYR SQ SCH (11:37)
[2022-03-08] MEDS: PANTOprazole 40 MG in SYRINGE 0 ML IV SCH (11:37)
--- NOTE | 2022-03-08 14:18 | Psychiatric Progress Note ---
Date of Service March 08, 2022 Impression / Recommendations Impression 71 yo male with 1 month of med non compliance with longstanding antipsychotic medication/mood stabilizer with acute AMS with rhabdo in the setting of paranoia. Unclear how much is delirium vs primary psychosis vs carmen vs agitated catatonia (which can be seen in both mood disorders and schizophrenia.) confirms his dx is schizophrenia and not bipolar do. 03/08/22: ongoing AMS, more cooperative with care. (1) Altered mental status: (2) Rhabdomyolysis: (3) Schizophrenia: Plan Risperdal M tab increase to BID, still has low dose Ativan IV prn. Interval History Identifying Information 71 yo male with a history of psychosis (?bipolar) from [facility] who had gone missing. He was admitted to medicine 03/04/22 for rhabdo after being found wandering in a swampy area. Chief Complaint intermittent agitation/confusion Review of Systems Notes patient unable to answer Subjective Subjective Patient was seen & assessed and interval progress reviewed with nursing. Was a code shane yesterday afternoon, ran from his room without gown, thought he was at the [facility]. Has since started IV antibiotics and was able to take first dose of Risperdal PO last pm. More oriented this am. Physical Exam Psychiatric resting comfortably in bed, allowed patient to sleep due to periods of agitation and clear ongoing paranoia. Vital Signs (Past 24 Hours) Last Vital Signs Temp 37.0 C 03/08/22 06:14 Pulse 75 03/08/22 06:14 Resp 18 03/08/22 06:14 BP 94/56 L 03/08/22 06:14 Pulse Ox 95 03/08/22 06:14 O2 Del Method 03/08/22 11:30 O2 Flow Rate 5 03/07/22 07:50 Results & Data ([facility]) Current Inpatient Medications Current Inpatient Medications: Current Inpatient Medications Acetaminophen (Acetaminophen 325 Mg Tab) 650 mg PO Q4H PRN PRN Reason: Moderate Pain Stop: 04/03/22 22:13 Enoxaparin Sodium (Enoxaparin Inj 40 Mg/0.4 Ml Syr) 40 mg SQ QAM [facility] Stop: 04/07/22 08:59 Last Admin: 03/08/22 11:37 Dose: 40 mg Dextrose/Sodium Chloride (D5w And 1/2nss) 1,000 mls @ 80 mls/hr IV .[id number] [facility] Stop: 04/05/22 10:29 Last Infusion: 03/08/22 11:42 Dose: 80 mls/hr Pantoprazole Sodium 40 mg/ (Syringe) 10 mls @ 5 mls/min IV DAILY@1100 [facility] Stop: 04/05/22 10:59 Last Admin: 03/08/22 11:37 Dose: 5 mls/min Lorazepam 0.5 mg/ Syringe 0.5 mls @ 2 mls/min IV TID PRN PRN Reason: agitation Stop: 04/06/22 09:44 Ceftriaxone Sodium 2,000 mg/ (Dextrose) 70 mls @ 100 mls/hr IV Q24H [facility]; Protocol Stop: 03/21/22 14:59 Last Infusion: 03/07/22 17:45 Dose: Infused Metronidazole (Flagyl) 500 mg in 100 mls @ 100 mls/hr IV Q8H [facility]; Protocol Stop: 03/14/22 14:29 Last Infusion: 03/08/22 06:35 Dose: Infused Olanzapine (Olanzapine 10 Mg/2.1 Ml Sdv) 2.5 mg IM Q6H PRN PRN Reason: Anxiety/Agitation Stop: 04/04/22 15:33 Last Admin: 03/08/22 09:22 Dose: 2.5 mg Ondansetron HCl (Ondansetron Inj 2 Mg/Ml 2 Ml Vial) 4 mg IV Q4H PRN PRN Reason: Nausea And Vomiting Stop: 04/03/22 22:13 Pantoprazole Sodium (Pantoprazole 40 Mg Tab) 40 mg PO DAILY [facility] Stop: 04/04/22 08:59 Last Admin: 03/06/22 10:54 Dose: Not Given Risperidone (Risperidone Odt 1mg) 1 mg PO QPM [facility] Stop: 04/05/22 23:29 Last Admin: 03/07/22 19:41 Dose: 1 mg (1) Altered mental status Altered mental status type: unspecified Qualified Code(s): R41.82 - Altered mental status, unspecified (2) Rhabdomyolysis Rhabdomyolysis type: non-traumatic Qualified Code(s): M62.82 - Rhabdomyolysis
[2022-03-08 14:44] LABS: Hematocrit (blood only) 37.9 % (40.1-51.0); Mean Corpuscular Hemoglobin 31.5 pg (25.0-34.0); Mean Corpuscular Hgb Conc 34.3 g/dL (32.0-36.0); Mean Corpuscular Volume 91.8 fL (80.0-100.0); Platelet Count 168 K/uL (130-400); RDW Coefficient of Variation 13.2 % (11.5-14.5); RDW Standard Deviation 44.8 fL (36.4-46.3); Red Blood Count 4.13 M/uL (4.63-6.08); White Blood Count 9.92 K/ul (4.8-10.8)
--- NOTE | 2022-03-08 15:00 | Hospitalist Progress Note ---
Date of Service March 08, 2022 Assessment & Plan (1) Gram-positive cocci bacteremia: Plan: 71 yo male with a history of psychosis (?bipolar) from [facility] who had gone missing. He was admitted to medicine 03/04/22 for rhabdo after being found wandering in a swampy area. MSSA bacteremia Blood clx 03/06 with Staph aureus, no MRSA. Was started on ceftriaxone for once a day dosing given his regular pulling out IV multiple times. Repeat blood cx. TTE. Consult ID. (2) Aspiration pneumonia: Plan: CXR 03/06/22 showed multifocal PNA, likely aspiration PNA. Received zosyn but Abx was changed due to frequent pulling IV lines Was started on ceftriaxone as above for MSSA and flagyl to cover anerobes Currently on room air Aspiration precautions Judicious use of prn meds for agitation (3) Schizophrenia: Plan: Psych following. On risperidal (psych increased to bid), zyprexa prn. Ativan 0.5 mg tid prn (4) Rhabdomyolysis: Plan: -s/p iv fluids, elevated CK level of 5697->4800->2400>800. (5) Altered mental status: Plan: CT of the brain is negative for any acute findings UDS negative, no focal source of infection, lyme and other tick borne disease negative Patient is on a 302, psych following (6) Elevated bilirubin: (7) Transaminitis: Plan: Repeat LFT improving, tick borne work up negative so far, hepatitis panel pending Follow up labs today Will get Liver USS once patient is more compliant (8) Charles esophagus: Plan: continue PPI (9) DDD (degenerative disc disease): Plan DVT ppx: lovenox Dispo: on 302, doesn't have decision making capacity, can not leave AMA. Psych following. Admission and Anticipated Discharge Date Admission Date: March 04, 2022 Subjective Patient seen and examined Patient was agitated earlier today and ripped his IV and declined lab draws. Received IM Zyprexa as well as IM Ativan. Patient currently calm at this time, alert and oriented to person and place. Reports feeling hungry and would like to eat. Had declined all food and drink since this morning. Limited ROS due to confusion Physical Exam Constitutional: no acute distress Thin Eyes: PERRL, conjunctivae normal, anicteric sclerae ENMT: Dry oral mucosa Respiratory: normal respiratory effort, lungs clear to auscultation Cardiovascular: Rate/Rhythm: regular rate and regular rhythm S1 S2 Gastrointestinal (Abdomen): normal bowel sounds, soft, nontender, no hepatosplenomegaly Musculoskeletal: No pedal edema Neurologic: PERRL, EOMI, accommodation nl, no face palsy, no dysarthria Psychiatric: Orientation: alert, oriented to person and oriented to place; + not oriented to time Results & Data Results & Data ([facility]) Vital Signs (Past 12 Hours) Vital Signs Temp Pulse Resp BP Pulse Ox O2 Del Method 03/08/22 11:30 Room Air 03/08/22 06:14 37.0 C 75 18 94/56 L 95 Room Air Laboratory Results Abnormal lab results 03/08/22 Range/Units 14:36 RBC 4.13 L (4.63-6.08) M/uL Hgb 13.0 L (14.0-18.0) g/dl Hct 37.9 L (40.1-51.0) % (1) Rhabdomyolysis Rhabdomyolysis type: non-traumatic Qualified Code(s): M62.82 - Rhabdomyolysis (2) Altered mental status Altered mental status type: unspecified Qualified Code(s): R41.82 - Altered mental status, unspecified
[2022-03-08] MEDS: cefTRIAXone SODIUM 2,000 MG in DEXTROSE 5% 50 ML IV SCH (15:04)
[2022-03-08 15:07] LABS: Albumin Level 2.8 gm/dl (3.4-5.0); BUN Creatinine Ratio 24.1 (10-20); Bilirubin Direct 0.5 mg/dl (0-0.2); Bilirubin,Total 2.3 mg/dl (0.2-1.0); Calcium 8.1 mg/dl (8.5-10.1); Creatinine Clr Calc Pharmacy 74.5 ml/min; Est GFR (African American) 102.6 ml/min; Est GFR (Non-African American) 88.5 ml/min; Magnesium 1.7 mg/dl (1.7-2.4); Phosphorus 1.8 mg/dl (2.5-4.9); Potassium 3.4 mmol/L (3.5-5.1); Total Protein 5.1 gm/dl (6.0-8.3)
--- NOTE | 2022-03-09 06:05 | Communication Note ---
Date of Service: March 09, 2022 overall patient has been less agitated, still confused/paranoid when he is awake, has only taken limited PO meds as refused Risperdal last hs. Clarificatio n of 302 status--there is a warrant on the chart. It does appear there may ultimately be an active police warrant for the aggression toward police and destruction to the police cruiser prior to arrival to ED. Liaison did assist with am meds today.
[2022-03-09] MEDS: ENOXAPARIN INJ 40 MG/0.4 ML SYR SQ SCH (08:31)
[2022-03-09] MEDS: metroNIDAZOLE 500 MG/100 ML BAG IV SCH (08:41)
[2022-03-09] MEDS: metroNIDAZOLE 500 MG TAB PO SCH ×3 (10:44→20:16)
[2022-03-09] MEDS: LORazepam 0.5 MG TAB PO PRN (10:44)
[2022-03-09 11:40] LABS: Hematocrit (blood only) 39.3 % (40.1-51.0); Hemoglobin 13.4 g/dl (14.0-18.0); Mean Corpuscular Hemoglobin 31.8 pg (25.0-34.0); Mean Corpuscular Hgb Conc 34.1 g/dL (32.0-36.0); Mean Corpuscular Volume 93.3 fL (80.0-100.0); Mean Platelet Volume 9.5 fL (9.4-12.4); Platelet Count 198 K/uL (130-400); RDW Coefficient of Variation 13.4 % (11.5-14.5); RDW Standard Deviation 45.8 fL (36.4-46.3); Red Blood Count 4.21 M/uL (4.63-6.08)
[2022-03-09 11:59] LABS: Calcium 8.3 mg/dl (8.5-10.1); Creatinine Clr Calc Pharmacy 65.8 ml/min; Est GFR (African American) 94.2 ml/min; Est GFR (Non-African American) 81.2 ml/min; Potassium 3.2 mmol/L (3.5-5.1)
[2022-03-09] MEDS ORDERED: ONDANSETRON 4 MG OD TAB PO PRN (12:06)
[2022-03-09] MEDS: D5W AND 1/2NSS 1,000 ML IV SCH (13:14)
[2022-03-09] MEDS: PANTOprazole 40 MG in SYRINGE 0 ML IV SCH (13:14)
--- NOTE | 2022-03-09 14:35 | Hospitalist Progress Note ---
Date of Service March 09, 2022 Assessment & Plan (1) Gram-positive cocci bacteremia: Plan: 71 yo male with a history of psychosis (?bipolar) from [facility] who had gone missing. He was admitted to medicine 03/04/22 for rhabdo after being found wandering in a swampy area. MSSA bacteremia Blood clx 03/06 with Staph aureus, no MRSA. Was started on ceftriaxone for once a day dosing given his regular pulling out IV multiple times. Follow up repeat blood cx. TTE once calm. Still awaiting ID consult (2) Aspiration pneumonia: Plan: CXR 03/06/22 showed multifocal PNA, likely aspiration PNA. Received zosyn but Abx was changed due to frequent pulling IV lines Was started on ceftriaxone as above for MSSA and flagyl to cover anerobes Currently on room air Aspiration precautions Judicious use of prn meds for agitation (3) Schizophrenia: Plan: Psych following. On risperidal (psych increased to bid), zyprexa prn. Ativan 0.5 mg tid prn (4) Altered mental status: Plan: CT of the brain is negative for any acute findings UDS negative, no focal source of infection, lyme and other tick borne disease negative Patient is on a 302, psych following (5) Rhabdomyolysis: Plan: -s/p iv fluids, elevated CK level of 5697->4800->2400>800. (6) Elevated bilirubin: (7) Transaminitis: Plan: Repeat LFT improving, tick borne work up negative so far, hepatitis panel pending Liver enzymes normalized Bilirubin improving (8) Charles esophagus: Plan: continue PPI (9) DDD (degenerative disc disease): Plan DVT ppx: lovenox Dispo: on 302, doesn't have decision making capacity, can not leave AMA. Psych following. Admission and Anticipated Discharge Date Admission Date: March 04, 2022 Subjective Patient seen and examined Patient is more agitated and paranoid today that yesterday Has been declining most of his meds especially the IV ones stating "i don't know if I can trust you' He currently denied any pain or discomfort anywhere Denied any nausea, vomiting Denied any cough, chest pain, shortness of breath Stated he will like to see in person when I was seeing him. I offered to call on the phone. He reported 'how do I know it will be my on the phone?' Physical Exam Constitutional: no acute distress Eyes: PERRL, conjunctivae normal, anicteric sclerae ENMT: external ear and nose normal, oropharynx normal Respiratory: normal respiratory effort, lungs clear to auscultation Cardiovascular: Rate/Rhythm: regular rate and regular rhythm S1 S2 Gastrointestinal (Abdomen): normal bowel sounds, soft, nontender, no hepatosplenomegaly Musculoskeletal: Trace pedal edema Neurologic: PERRL, EOMI, accommodation nl, no face palsy, no dysarthria Psychiatric: Orientation: alert, oriented to person and oriented to place; + not oriented to time Mildly agitated paranoid Results & Data Results & Data ([facility]) Laboratory Results Abnormal lab results 03/08/22 03/08/22 03/09/22 Range/Units 14:36 14:36 11:31 RBC 4.13 L 4.21 L (4.63-6.08) M/uL Hgb 13.0 L 13.4 L (14.0-18.0) g/dl Hct 37.9 L 39.3 L (40.1-51.0) % Potassium 3.4 L (3.5-5.1) mmol/L Chloride 108 H (98-107) mmol/L BUN/Creatinine Ratio 24.1 H (10-20) Glucose 132 H (70-99(Fasting)) mg/dl Calcium 8.1 L (8.5-10.1) mg/dl Phosphorus 1.8 L (2.5-4.9) mg/dl Total Bilirubin 2.3 H (0.2-1.0) mg/dl Direct Bilirubin 0.5 H (0-0.2) mg/dl Total Creatine Kinase 350 H (30-223) U/L Total Protein 5.1 L (6.0-8.3) gm/dl Albumin 2.8 L (3.4-5.0) gm/dl 03/09/22 Range/Units 11:31 RBC (4.63-6.08) M/uL Hgb (14.0-18.0) g/dl Hct (40.1-51.0) % Potassium 3.2 L (3.5-5.1) mmol/L Chloride (98-107) mmol/L BUN/Creatinine Ratio (10-20) Glucose 122 H (70-99(Fasting)) mg/dl Calcium 8.3 L (8.5-10.1) mg/dl Phosphorus (2.5-4.9) mg/dl Total Bilirubin (0.2-1.0) mg/dl Direct Bilirubin (0-0.2) mg/dl Total Creatine Kinase (30-223) U/L Total Protein (6.0-8.3) gm/dl Albumin (3.4-5.0) gm/dl (1) Rhabdomyolysis Rhabdomyolysis type: non-traumatic Qualified Code(s): M62.82 - Rhabdomyolysis (2) Altered mental status Altered mental status type: unspecified Qualified Code(s): R41.82 - Altered mental status, unspecified
[2022-03-09] MEDS ORDERED: POTASSIUM CHLORIDE 20 MEQ/15 ML UDC PO STA (14:43)
[2022-03-09] MEDS ORDERED: POT PHOSPHATE MONOBASIC W/ SOD TAB PO ONE (14:45)
[2022-03-09] MEDS: cefTRIAXone SODIUM 2,000 MG in DEXTROSE 5% 50 ML IV SCH (15:01)
[2022-03-09 17:06] LABS: Babesia microti DNA Not Detected (Not Detected)
[2022-03-10 08:37] LABS: Hematocrit (blood only) 36.3 % (40.1-51.0); Hemoglobin 12.4 g/dl (14.0-18.0); Mean Corpuscular Hemoglobin 32.1 pg (25.0-34.0); Mean Corpuscular Hgb Conc 34.2 g/dL (32.0-36.0); Mean Platelet Volume 9.3 fL (9.4-12.4); Platelet Count 194 K/uL (130-400); RDW Coefficient of Variation 13.4 % (11.5-14.5); RDW Standard Deviation 46.5 fL (36.4-46.3); Red Blood Count 3.86 M/uL (4.63-6.08); White Blood Count 7.01 K/ul (4.8-10.8)
[2022-03-10 09:09] LABS: BUN Creatinine Ratio 22.4 (10-20); Calcium 8.7 mg/dl (8.5-10.1); Creatinine Clr Calc Pharmacy 72.7 ml/min; Est GFR (African American) 101.6 ml/min; Est GFR (Non-African American) 87.7 ml/min; Magnesium 1.6 mg/dl (1.7-2.4); Phosphorus 3.3 mg/dl (2.5-4.9); Potassium 3.1 mmol/L (3.5-5.1)
[2022-03-10] MEDS: ENOXAPARIN INJ 40 MG/0.4 ML SYR SQ SCH (09:26)
[2022-03-10] MEDS: metroNIDAZOLE 500 MG TAB PO SCH (09:26)
[2022-03-10] MEDS: LORazepam 0.5 MG TAB PO PRN ×3 (11:46→22:41)
--- NOTE | 2022-03-10 12:13 | Hospitalist Progress Note ---
Date of Service March 10, 2022 Assessment & Plan (1) Gram-positive cocci bacteremia: Plan: 71 yo male with a history of psychosis (?bipolar) from [facility] who had gone missing. He was admitted to medicine 03/04/22 for rhabdo after being found wandering in a swampy area. MSSA bacteremia Blood clx 03/06 with Staph aureus, no MRSA. Repeat Blood Cx 03/08/22 remains negative at this time ID evaluation noted. ID had recommended ancef which is ideal. However, ancef will need q8h dosing. This will not be achievable at this time considering freq pulling of IV lines TTE today is showing possible aortic valve vegetation with possible abscess as well as thickening of ant leaflet of mitral valve. 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 I tigertexted ID Dr Acevedo about this and problems with keeping IV on patient to get his recommendations with respect to antibiotics at this time. Awaiting response. Cardiology consult for KATELYN (2) Aspiration pneumonia: Plan: CXR 03/06/22 showed multifocal PNA, likely aspiration PNA. Received zosyn but Abx was changed due to frequent pulling IV lines Was started on ceftriaxone as above for MSSA and flagyl to cover anerobes Currently on room air Aspiration precautions Judicious use of prn meds for agitation No fever, No resp symptoms, No leukocytosis, currently on room air. Will dc flagyl at this time (3) Schizophrenia: Plan: Psych following. On risperidal (psych increased to bid), zyprexa prn. Ativan 0.5 mg tid prn (4) Altered mental status: Plan: CT of the brain is negative for any acute findings UDS negative, lyme and other tick borne disease negative Patient is on a 302, psych following (5) Rhabdomyolysis: Plan: -s/p iv fluids, elevated CK level of 5697->4800->2400>800. (6) Elevated bilirubin: (7) Transaminitis: Plan: Repeat LFT improving, tick borne work up negative so far, hepatitis panel pending Liver enzymes normalized Bilirubin improving (8) Charles esophagus: Plan: continue PPI (9) DDD (degenerative disc disease): Plan Hypokalemia Hypomagnesemia Replete aggressively po and monitor DVT ppx: lovenox Dispo: on 302, doesn't have decision making capacity, can not leave AMA. Psych following. Updated sister Pretty [phone] 's no [phone] Admission and Anticipated Discharge Date Admission Date: March 04, 2022 Subjective Patient seen and examined Was agitated earlier per RN and pulled his IV Currently denied any complaints Denied any fevers, chills, nausea, vomiting, chest pain Denied cough, SOB Denied abd pain, diarrhea, constipation Denied dysuria, freq Had pulled some of his toenails yesterday. Stated he wanted to 'clip them' Physical Exam Constitutional: no acute distress Eyes: PERRL, conjunctivae normal, anicteric sclerae ENMT: external ear and nose normal, oropharynx normal Respiratory: normal respiratory effort, lungs clear to auscultation Cardiovascular: Rate/Rhythm: regular rate and regular rhythm S1 S2 Gastrointestinal (Abdomen): normal bowel sounds, soft, nontender, no hepatosplenomegaly Musculoskeletal: Some cut toe nail and injured skin Neurologic: PERRL, EOMI, accommodation nl, no face palsy, no dysarthria Psychiatric: Orientation: alert, oriented to person and oriented to place; + not oriented to time Cooperative at this time Results & Data Results & Data ([facility]) Laboratory Results Abnormal lab results 03/10/22 03/10/22 Range/Units 08:27 08:27 RBC 3.86 L (4.63-6.08) M/uL Hgb 12.4 L (14.0-18.0) g/dl Hct 36.3 L (40.1-51.0) % RDW Std Deviation 46.5 H (36.4-46.3) fL MPV 9.3 L (9.4-12.4) fL Potassium 3.1 L (3.5-5.1) mmol/L Chloride 109 H (98-107) mmol/L BUN/Creatinine Ratio 22.4 H (10-20) Glucose 127 H (70-99(Fasting)) mg/dl Magnesium 1.6 L (1.7-2.4) mg/dl (1) Rhabdomyolysis Rhabdomyolysis type: non-traumatic Qualified Code(s): M62.82 - Rhabdomyolysis (2) Altered mental status Altered mental status type: unspecified Qualified Code(s): R41.82 - Altered mental status, unspecified
[2022-03-10] MEDS: PANTOprazole 40 MG in SYRINGE 0 ML IV SCH (12:38)
--- NOTE | 2022-03-10 13:54 | Psychiatric Progress Note ---
Date of Service March 10, 2022 Impression / Recommendations Impression 71 yo male with 1 month of med non compliance with longstanding antipsychotic medication/mood stabilizer with acute AMS with rhabdo in the setting of paranoia. Unclear how much is delirium vs primary psychosis vs carmen vs agitated catatonia (which can be seen in both mood disorders and schizophrenia.) confirms his dx is schizophrenia and not bipolar do. 03/10/22: AMS improved, behavior varies shift to shift, not clear if could be related to some sundowning (1) Altered mental status: (2) Schizophrenia: Plan continue current meds and tx plan 1-on-1 given warrant/unpredictable behavior If continues this trajectory can likely be discharged home when medically cleared from floor. Will need outpatient medication f/u. Interval History Identifying Information 71 yo male with a history of psychosis (?bipolar) from [facility] who had gone missing. He was admitted to medicine 03/04/22 for rhabdo after being found wandering in a swampy area. Chief Complaint "as long as I take Risperdal I'll be fine". Review of Systems Notes patient is without complaint other than above Subjective Subjective Patient was seen & assessed and interval progress reviewed with nursing. Patient compliant with meds/IV yesterday only with much encouragement from . He did engage in self-injury by pulling off some toenails overnight which were admittedly unkempt, seems unaware they are dripping blood on floor as he sits in bedside chair. He is aware that family will visit this weekend and wants to have his clothes cleaned. He confirmed his history with Risperdal, maintains he was told to stop it by a medical provider. He no longer thinks he's being scammed. He asked appropriate questions about his medical stay. Physical Exam Psychiatric Orientation: alert, oriented to person and oriented to place Apperance: appropriately groomed Eye Contact: good eye contact Motor Behavior: no abnormal motor movements Speech: normal rate/rhythm/volume of speech Affect: euthymic affect Mood: no depressed mood, no anxious mood and no irritable mood Thought Process: + concrete thought process Thought Content: not paranoid and no delusions Suicidal Thoughts: denies suicidal thoughts Homicidal Thoughts: denies homicidal thoughts Hallucinations: no auditory hallucinations and no visual hallucinations Cognition: attention grossly intact and language grossly intact Estimated Intelligence: consistent with education level Insight: + limited insight Vital Signs (Past 24 Hours) Last Vital Signs Temp 36.4 C L 03/10/22 13:46 Pulse 113 H 03/10/22 13:46 Resp 20 03/10/22 13:46 BP 110/71 03/10/22 13:46 Pulse Ox 92 03/10/22 13:46 O2 Del Method 03/10/22 13:46 O2 Flow Rate 5 03/07/22 07:50 Results & Data ([facility]) Laboratory Results Laboratory Results - last 24 hr 03/05/22 03/10/22 03/10/22 11:38 08:27 08:27 WBC 7.01 RBC 3.86 L Hgb 12.4 L Hct 36.3 L MCV 94.0 MCH 32.1 MCHC 34.2 RDW Std Deviation 46.5 H RDW Coeff of Leyla 13.4 Plt Count 194 MPV 9.3 L Sodium 144 Potassium 3.1 L Chloride 109 H Carbon Dioxide 27 Anion Gap 8 BUN 19 Creatinine 0.85 Est Cr Clr Drug Dosing 72.7 Est GFR ( Amer) 101.6 Est GFR (Non-Af Amer) 87.7 BUN/Creatinine Ratio 22.4 H Glucose 127 H Calcium 8.7 Phosphorus 3.3 D Magnesium 1.6 L Babesia microti DNA PCR Not Detected Current Inpatient Medications Current Inpatient Medications: Current Inpatient Medications Acetaminophen (Acetaminophen 325 Mg Tab) 650 mg PO Q4H PRN PRN Reason: Moderate Pain Stop: 04/03/22 22:13 Enoxaparin Sodium (Enoxaparin Inj 40 Mg/0.4 Ml Syr) 40 mg SQ QAM [facility] Stop: 04/07/22 08:59 Last Admin: 03/10/22 09:26 Dose: Not Given Pantoprazole Sodium 40 mg/ (Syringe) 10 mls @ 5 mls/min IV DAILY@1100 [facility] Stop: 04/05/22 10:59 Last Admin: 03/10/22 12:38 Dose: Not Given Lorazepam 0.5 mg/ Syringe 0.5 mls @ 2 mls/min IV TID PRN PRN Reason: agitation Stop: 04/06/22 09:44 Ceftriaxone Sodium 2,000 mg/ (Dextrose) 70 mls @ 100 mls/hr IV Q24H [facility]; Protocol Stop: 03/10/22 16:01 Last Infusion: 03/09/22 16:13 Dose: Infused Ceftriaxone Sodium 2,000 mg/ (Dextrose) 70 mls @ 100 mls/hr IV Q12H [facility]; Protocol Stop: 03/25/22 08:59 Lorazepam (Lorazepam 0.5 Mg Tab) 0.5 mg PO ONCE PRN PRN Reason: Agitation Stop: 04/08/22 08:37 Last Admin: 03/10/22 11:46 Dose: 0.5 mg Magnesium Oxide (Magnesium Oxide 400 Mg Tab) 400 mg PO BID [facility] Stop: 04/09/22 13:44 Olanzapine (Olanzapine 10 Mg/2.1 Ml Sdv) 2.5 mg IM Q6H PRN PRN Reason: Anxiety/Agitation Stop: 04/04/22 15:33 Last Admin: 03/08/22 09:22 Dose: 2.5 mg Ondansetron HCl (Ondansetron Inj 2 Mg/Ml 2 Ml Vial) 4 mg IV Q4H PRN PRN Reason: Nausea And Vomiting Stop: 04/03/22 22:13 Ondansetron HCl (Ondansetron 4 Mg Od Tab) 4 mg PO Q6H PRN PRN Reason: Nausea Stop: 04/08/22 12:05 Pantoprazole Sodium (Pantoprazole 40 Mg Tab) 40 mg PO DAILY [facility] Stop: 04/04/22 08:59 Last Admin: 03/06/22 10:54 Dose: Not Given Potassium Chloride (Potassium Chloride 20 Meq/15 Ml Udc) 40 meq PO BID [facility] Stop: 03/10/22 21:01 Risperidone (Risperidone Odt 1mg) 1 mg PO BID [facility] Stop: 04/07/22 20:59 Last Admin: 03/10/22 09:25 Dose: 1 mg (1) Altered mental status Altered mental status type: unspecified Qualified Code(s): R41.82 - Altered mental status, unspecified
[2022-03-10] MEDS: POTASSIUM CHLORIDE 20 MEQ/15 ML UDC PO SCH ×2 (14:21→21:10)
[2022-03-10] MEDS: MAGNESIUM OXIDE 400 MG TAB PO SCH ×2 (14:22→21:08)
[2022-03-10] MEDS: cefTRIAXone SODIUM 2,000 MG in DEXTROSE 5% 50 ML IV SCH (16:19)
--- NOTE | 2022-03-11 04:56 | Communication Note ---
Date of Service: March 11, 2022 Interim progress reviewed, Dr. Mcguire to assume clinical responsibility for consult service late this evening. Patient remains improved overall but intermi ttent paranoia continues, additional PO Risperdal ordered as prn with low dose Cogentin (to minimize anticholinergic side effects if does develop dystonia). Patient became anxious during ECHO so limited study per nursing and needed reassurance that family members were his family initially.
[2022-03-11] MEDS: LORazepam 0.5 MG TAB PO PRN ×3 (07:35→21:18)
[2022-03-11 07:58] LABS: Hematocrit (blood only) 33.8 % (40.1-51.0); Mean Corpuscular Hemoglobin 31.4 pg (25.0-34.0); Mean Corpuscular Hgb Conc 32.5 g/dL (32.0-36.0); Mean Corpuscular Volume 96.6 fL (80.0-100.0); Mean Platelet Volume 9.2 fL (9.4-12.4); Platelet Count 159 K/uL (130-400); RDW Coefficient of Variation 14.1 % (11.5-14.5); White Blood Count 5.56 K/ul (4.8-10.8)
[2022-03-11 08:26] LABS: Albumin Globulin Ratio 1.3 (0.9-2); Albumin Level 2.7 gm/dl (3.4-5.0); BUN Creatinine Ratio 16.1 (10-20); Bilirubin,Total 0.7 mg/dl (0.2-1.0); Calcium 8.1 mg/dl (8.5-10.1); Est GFR (African American) 100.6 ml/min; Est GFR (Non-African American) 86.8 ml/min; Globulin 2.1 gm/dl (2.5-4.0); Magnesium 1.5 mg/dl (1.7-2.4); Phosphorus 3.4 mg/dl (2.5-4.9); Total Protein 4.8 gm/dl (6.0-8.3)
[2022-03-11] MEDS: MAGNESIUM OXIDE 400 MG TAB PO SCH ×2 (08:37→20:36)
[2022-03-11] MEDS: ENOXAPARIN INJ 40 MG/0.4 ML SYR SQ SCH (08:37)
[2022-03-11] MEDS ORDERED: cefTRIAXone SODIUM 2,000 MG in DEXTROSE 5% 50 ML IV SCH (09:00)
[2022-03-11] MEDS: PANTOprazole 40 MG in SYRINGE 0 ML IV SCH (10:26)
--- NOTE | 2022-03-11 12:04 | Hospitalist Progress Note ---
Date of Service March 11, 2022 Assessment & Plan (1) Gram-positive cocci bacteremia: Plan: 71 yo male with a history of psychosis (?bipolar) from [facility] who had gone missing. He was admitted to medicine 03/04/22 for rhabdo after being found wandering in a swampy area. MSSA bacteremia Blood clx 03/06 with Staph aureus, no MRSA. Repeat Blood Cx 03/08/22 remains negative at this time ID evaluation noted. ID had recommended ancef which is ideal. Patient was pulling lines earlier this admission and was put on ceftriaxone to reduced dosing freq Patient seem to have been compliant since yesterday and no longer pulling lines. Discussed with pharm, will change to ideal Ancef dosing TTE was reported as possible aortic valve vegetation with possible abscess as well as thickening of ant leaflet of mitral valve. Hence Possible infective endocarditis with MSSA bacteremia Discussed with Production Support Manager today who reviewed Echo. He noted that Echo is limited and unequivocal Cardiology on board evaluating for possible KATELYN (2) Aspiration pneumonia: Plan: CXR 03/06/22 showed multifocal PNA, likely aspiration Pneumonitis/Pneumonia. Received zosyn but Abx was changed due to frequent pulling IV lines Currently on room air Was previously on ceftriaxone for MSSA as above as well as flagyl (now dc'ed) Aspiration precautions Judicious use of prn meds for agitation (3) Schizophrenia: Plan: Psych following. On risperidal (psych increased to bid), zyprexa prn. Ativan 0.5 mg tid prn (4) Altered mental status: Plan: CT of the brain is negative for any acute findings UDS negative, lyme and other tick borne disease negative Patient is on a 302, psych following (5) Rhabdomyolysis: Plan: -s/p iv fluids, elevated CK level of 5697->4800->2400>800. (6) Elevated bilirubin: (7) Transaminitis: Plan: Repeat LFT improving, tick borne work up negative so far, hepatitis panel pending Liver enzymes normalized Bilirubin improving (8) Charles esophagus: Plan: continue PPI (9) DDD (degenerative disc disease): Plan Hypomagnesemia Replete and monitor DVT ppx: lovenox Dispo: on 302, doesn't have decision making capacity, can not leave AMA. Psych following. sister Pretty [phone] 's no [phone] Admission and Anticipated Discharge Date Admission Date: March 04, 2022 Subjective Patient seen and examined Patient has been compliant since yesterday per RN No report of agitation overnight or today Currently denied any complaints Denied any fevers, chills, nausea, vomiting Denied cough, SOB, chest pain Denied abd pain, diarrhea, constipation Denied dysuria, freq Physical Exam Constitutional: no acute distress Eyes: PERRL, conjunctivae normal, anicteric sclerae ENMT: external ear and nose normal, oropharynx normal Respiratory: normal respiratory effort, lungs clear to auscultation Cardiovascular: Rate/Rhythm: regular rate and regular rhythm S1 S2 Gastrointestinal (Abdomen): normal bowel sounds, soft, nontender, no hepatosplenomegaly Musculoskeletal: No pedal edema Neurologic: PERRL, EOMI, accommodation nl, no face palsy, no dysarthria Psychiatric: Orientation: alert, oriented to person and oriented to place; + not oriented to time Results & Data Results & Data ([facility]) Vital Signs (Past 12 Hours) Vital Signs Pulse Resp BP Pulse Ox O2 Del Method 03/11/22 07:17 88 18 113/67 97 Room Air Laboratory Results Abnormal lab results 03/11/22 03/11/22 Range/Units 07:44 07:44 RBC 3.50 L (4.63-6.08) M/uL Hgb 11.0 L (14.0-18.0) g/dl Hct 33.8 L (40.1-51.0) % RDW Std Deviation 50.0 H (36.4-46.3) fL MPV 9.2 L (9.4-12.4) fL Chloride 110 H (98-107) mmol/L Calcium 8.1 L (8.5-10.1) mg/dl Magnesium 1.5 L (1.7-2.4) mg/dl Total Protein 4.8 L (6.0-8.3) gm/dl Albumin 2.7 L (3.4-5.0) gm/dl Globulin 2.1 L (2.5-4.0) gm/dl (1) Rhabdomyolysis Rhabdomyolysis type: non-traumatic Qualified Code(s): M62.82 - Rhabdomyolysis (2) Altered mental status Altered mental status type: unspecified Qualified Code(s): R41.82 - Altered mental status, unspecified
--- NOTE | 2022-03-11 15:38 | Cardiology Consultation ---
Date of Consultation March 11, 2022 Assessment & Plan (1) Bacteremia: -Patient initially presented with acute change mental status, under police supervision, and received treatment for rhabdomyolysis, presenting CPK level 5697 units/L on 03/04/2022, down to 350 units/L. -Has been followed by psychiatry and is currently back on his risperidone, and per review of his chart it sounds like his mentation is trending in the right direction. -He is tolerating IV Rocephin, and is afebrile. Echocardiogram images obtained yesterday reviewed independently. Rather than describing this as a positive abnormal echocardiogram, I would describe it as being an equivocal, technically limited echocardiogram. Transesophageal echocardiogram would provide more information, but would need consent from patient/family, and for the patient to be able to have IV access and to be cooperative. He is going to think about things. He gave me permission to speak to his family. I attempted to reach patient's spouse, Aubree, , but was not successful. Will follow up tomorrow. History of Present Illness Attending Physician: Fátima Hanks MD History of Present Illness Bolivar Rojas is a 71-year-old male seen in cardiology consultation per the request of Dr. Hanks for evaluation of methicillin sensitive staph aureus bacteremia. Patient was admitted via the emergency room on 03/04/2022 after police found him having fallen into a swamp like area near [place]. Patient has a history of schizophrenia and has apparently been off of his Risperdal recently. He has demonstrated paranoia while hospitalized and is currently on 1: 1 supervision with a licensed nursing assistant. He is being followed by the psychiatry service. Earlier in the hospital stay he was pulling out his IV access, but he currently does have IV access in his left arm at present. The patient has been found to have/2 blood cultures positive for sensitive staph aureus obtained on 03/06/2022. A repeat set of cultures performed on 03/08 are negative thus far. A transthoracic echocardiogram was attempted yesterday, but terminated early due to patient noncompliance. There is concern about a possible abnormality on the aortic valve prompting cardiology consultation to discuss transesophageal echo. The patient was resting comfortably at the time of my assessment. He was conversant, however he stated that he would like to think about having a transesophageal echocardiogram and to discuss it with his and his sister. He states his sister is a nurse. Allergies Allergy/AdvReac Type Severity Reaction Status Date / Time No Known Allergies Allergy Verified 03/04/22 22:18 Home Medications Medication Instructions Recorded Confirmed Type pantoprazole 40 mg tablet,delayed 40 mg PO DAILY 03/04/22 03/04/22 History release risperidone 2 mg tablet 2 mg PO QPM 03/04/22 03/04/22 History Patient History Medical History B12 deficiency Charles esophagus Bipolar disorder DDD (degenerative disc disease) Slow transit constipation Surgical History Hx of colonoscopy Hx of esophagogastroduodenoscopy Hx of inguinal hernia repair Family History Mother Neurological disorder Father Diabetes Social History Smoking Status: Never smoker Second Hand Exposure: No; Do You Dip or Chew Tobacco: No; Hx Alcohol Use: No Hx Substance Use: No Preferred Language: [place] Islander Communication Ability: Effective Center Consultant Required: No Beliefs That Will Affect Care: None Current Living Situation: Spouse Other Information That Helps Us Care for You: No Feels Safe at Home: Yes Safety Concerns: Feels Safe At This Time Assistive Devices: None Review of Systems Review of Systems: All systems reviewed & are unremarkable except as noted in HPI & below Physical Exam Physical Exam: Temp Pulse Resp BP Pulse Ox O2 Del Method O2 Flow Rate 36.5 C 88 18 113/67 97 5 03/10/22 23:07 03/11/22 07:17 03/11/22 07:17 03/11/22 07:17 03/11/22 07:17 03/11/22 07:17 03/07/22 07:50 Constitutional: No acute distress, thin, frail in appearance Respiratory: normal respiratory effort, lungs clear to auscultation Cardiovascular: RRR, no murmur, no edema Gastrointestinal (Abdomen): normal bowel sounds, soft, nontender, no hepatosplenomegaly Neurologic: PERRL, EOMI, accommodation nl, no face palsy, no dysarthria Results & Data ([facility]) Vital Signs (Past 12 Hours) Vital Signs Pulse Resp BP Pulse Ox O2 Del Method 03/11/22 07:17 88 18 113/67 97 Room Air Diagnostic Findings EKG performed 03/07/2022 revealed normal sinus rhythm at 75 bpm with occasional PVCs. No significant repolarization changes. Transthoracic echocardiogram raise concern for possible vegetation of the left coronary cusp of the aortic valve. LVEF 50 to 55%
[2022-03-11] MEDS ORDERED: MAGNESIUM SULFATE / D5W 1 GM/100 ML BAG IV ONE (16:00)
[2022-03-11] MEDS: ceFAZolin 2000MG 2,000 MG/15 ML SYR IV SCH (17:00)
[2022-03-12] MEDS: ceFAZolin 2000MG 2,000 MG/15 ML SYR IV SCH ×3 (00:27→16:42)
[2022-03-12] MEDS: OLANZapine 10 MG/2.1 ML SDV IM PRN (00:37)
[2022-03-12] MEDS ORDERED: LORazepam 2 MG/1 ML VIAL IM STA (00:50)
[2022-03-12] MEDS ORDERED: BENZTROPINE MESYLATE 1 MG/ML 2 ML AMP IM PRN (01:18)
[2022-03-12 07:39] LABS: Hematocrit (blood only) 37.2 % (40.1-51.0); Hemoglobin 12.3 g/dl (14.0-18.0); Mean Corpuscular Hemoglobin 31.1 pg (25.0-34.0); Mean Corpuscular Hgb Conc 33.1 g/dL (32.0-36.0); Mean Corpuscular Volume 94.2 fL (80.0-100.0); Mean Platelet Volume 9.1 fL (9.4-12.4); Platelet Count 199 K/uL (130-400); RDW Coefficient of Variation 13.7 % (11.5-14.5); RDW Standard Deviation 47.1 fL (36.4-46.3); Red Blood Count 3.95 M/uL (4.63-6.08)
[2022-03-12 08:09] LABS: Albumin Globulin Ratio 1.2 (0.9-2); BUN Creatinine Ratio 12.5 (10-20); Bilirubin Direct 0.2 mg/dl (0-0.2); Bilirubin,Total 0.9 mg/dl (0.2-1.0); Calcium 8.4 mg/dl (8.5-10.1); Creatinine Clr Calc Pharmacy 77.3 ml/min; Est GFR (African American) 104.2 ml/min; Est GFR (Non-African American) 89.9 ml/min; Globulin 2.5 gm/dl (2.5-4.0); Magnesium 1.9 mg/dl (1.7-2.4); Potassium 3.8 mmol/L (3.5-5.1); Total Protein 5.5 gm/dl (6.0-8.3)
[2022-03-12] MEDS: LORazepam 0.5 MG TAB PO PRN ×3 (10:45→22:10)
[2022-03-12] MEDS: MAGNESIUM OXIDE 400 MG TAB PO SCH ×2 (10:46→19:57)
[2022-03-12] MEDS: ENOXAPARIN INJ 40 MG/0.4 ML SYR SQ SCH (10:47)
[2022-03-12] MEDS: PANTOprazole 40 MG in SYRINGE 0 ML IV SCH (11:13)
[2022-03-12] MEDS: BENZTROPINE MESYLATE 0.5 MG TAB PO PRN ×2 (11:14→19:57)
--- NOTE | 2022-03-12 11:19 | Hospitalist Progress Note ---
Date of Service March 12, 2022 Assessment & Plan (1) Gram-positive cocci bacteremia: Plan: 71 yo male with a history of psychosis (?bipolar) from [facility] who had gone missing. He was admitted to medicine 03/04/22 for rhabdo after being found wandering in a swampy area. MSSA bacteremia Blood clx 03/06 with Staph aureus, no MRSA. Repeat Blood Cx 03/08/22 remains negative at this time ID evaluation noted. ID had recommended ancef which is ideal. Patient was pulling lines earlier this admission and was put on ceftriaxone to reduced dosing freq This was changed to Ancef yesterday. Patient counseled on need to stop refusing meds or IV TTE was reported as possible aortic valve vegetation with possible abscess as well as thickening of ant leaflet of mitral valve. Hence Possible infective endocarditis with MSSA bacteremia Discussed with Human Resources Trainer today who plan for possible KATELYN tomorrow (2) Aspiration pneumonia: Plan: CXR 03/06/22 showed multifocal PNA, likely aspiration Pneumonitis/Pneumonia. Received zosyn but Abx was changed due to frequent pulling IV lines Currently on room air Was previously on ceftriaxone for MSSA as above as well as flagyl (now dc'ed) Aspiration precautions Judicious use of prn meds for agitation (3) Schizophrenia: Plan: Psych following. On risperidal (psych increased to bid), zyprexa prn. Ativan 0.5 mg tid prn (4) Altered mental status: Plan: CT of the brain is negative for any acute findings UDS negative, lyme and other tick borne disease negative Patient is on a 302, psych following (5) Rhabdomyolysis: Plan: -s/p iv fluids, elevated CK level of 5697->4800->2400>800. (6) Elevated bilirubin: (7) Transaminitis: Plan: Repeat LFT improving, tick borne work up negative so far Liver enzymes normalized (8) Charles esophagus: Plan: continue PPI (9) DDD (degenerative disc disease): Plan DVT ppx: lovenox Dispo: on 302, doesn't have decision making capacity, can not leave AMA. Psych following. sister Pretty [phone] 's no [phone] Admission and Anticipated Discharge Date Admission Date: March 04, 2022 Subjective Patient seen and examined Patient was agitated overnight, removed his IV and refused AM meds this AM He agreed to IV and to getting his meds after I spoke with him and got his on the phone to talk with him as well Currently denied any complaints Denied any fevers, chills, nausea, vomiting Denied cough, SOB, chest pain Denied abd pain, diarrhea, constipation Denied dysuria, freq Physical Exam Constitutional: no acute distress Eyes: PERRL, conjunctivae normal, anicteric sclerae ENMT: external ear and nose normal, oropharynx normal Respiratory: normal respiratory effort, lungs clear to auscultation Cardiovascular: Rate/Rhythm: regular rate and regular rhythm S1 S2 Gastrointestinal (Abdomen): normal bowel sounds, soft, nontender, no hepatosplenomegaly Musculoskeletal: No pedal edema Neurologic: PERRL, EOMI, accommodation nl, no face palsy, no dysarthria Psychiatric: Orientation: alert, oriented to person and oriented to place; + not oriented to time Results & Data Results & Data ([facility]) Laboratory Results Abnormal lab results 03/12/22 03/12/22 Range/Units 07:32 07:32 RBC 3.95 L (4.63-6.08) M/uL Hgb 12.3 L (14.0-18.0) g/dl Hct 37.2 L (40.1-51.0) % RDW Std Deviation 47.1 H (36.4-46.3) fL MPV 9.1 L (9.4-12.4) fL Glucose 112 H (70-99(Fasting)) mg/dl Calcium 8.4 L (8.5-10.1) mg/dl Total Protein 5.5 L (6.0-8.3) gm/dl Albumin 3.0 L (3.4-5.0) gm/dl (1) Rhabdomyolysis Rhabdomyolysis type: non-traumatic Qualified Code(s): M62.82 - Rhabdomyolysis (2) Altered mental status Altered mental status type: unspecified Qualified Code(s): R41.82 - Altered mental status, unspecified
--- NOTE | 2022-03-12 13:30 | Psychiatric Progress Note ---
Date of Service March 12, 2022 Impression / Recommendations Impression 71 yo male with 1 month of med non compliance with longstanding antipsychotic medication/mood stabilizer with acute AMS with rhabdo in the setting of paranoia. Unclear how much is delirium vs schizophrenia agitated catatonia. Waxing and waning course seems most consistent with delirium especially given inattention and periods of increased agitation. 03/12/22: Worse agitation and confusion last night and not oriented today suggestive of delirium. Notable TD though he reports feeling unaware and unbothered by lip movements. Continue with current medications. (1) Altered mental status: (2) Schizophrenia: (3) Delirium: Plan -continue current meds and tx plan -1-on-1 given police warrant/unpredictable behavior -If continues this trajectory can likely be discharged home when medically cleared from floor. Will need outpatient medication f/u which psych liason will work on Sunday once offices are open for referrals. -Involve his to help with reassurance Interval History Identifying Information 71 yo male with a history of psychosis (?bipolar) from [facility] who had gone missing. He was admitted to medicine 03/04/22 for rhabdo after being found wandering in a [facility] area. Chief Complaint "I need to wait until my is here". Review of Systems Notes see subjective Subjective Subjective Patient was seen & assessed and interval progress reviewed. Overnight required IM Zyprexa and mechanical restraints due to agitation including pulling out his IV line. This morning he remains quite confused is not oriented to place or time and is quite irritable including sighing and very inattentive. He remains in wrist soft restraints this morning and was refusing all of his medications and refusing to allow for replacement of his IV or antibiotics. When asked about this states he does not wanted and feels scared about taking the medication noting that it just feels wrong. Reviewed importance of the medications and helping him feel better. Consistently smacking his lips likely TD. He denies any side effects from his medication. His breakfast remains at his bedside he did not eat it and remains uninterested in eating anything. Did not want us to call his stating "she is working". Informed it was Sunday he stated "yes she works on Sunday". Physical Exam Psychiatric Orientation: alert and oriented to person; + not oriented to place, + not oriented to time and + uncooperative Apperance: appropriately groomed Eye Contact: + fair eye contact Motor Behavior: no abnormal motor movements Speech: normal rate/rhythm/volume of speech Affect: + irritable affect Mood: + anxious mood and + irritable mood; no depressed mood Thought Process: + concrete thought process Thought Content: + paranoid Suicidal Thoughts: denies suicidal thoughts Homicidal Thoughts: denies homicidal thoughts Hallucinations: no auditory hallucinations and no visual hallucinations Cognition: language grossly intact; + recent memory not intact and + attention not intact Estimated Intelligence: consistent with education level Insight: + limited insight Judgement: + severely impaired judgement Vital Signs (Past 24 Hours) Last Vital Signs Temp 36.7 C 03/11/22 21:31 Pulse 82 03/11/22 21:31 Resp 20 03/11/22 21:31 BP 154/86 H 03/11/22 21:31 Pulse Ox 97 03/11/22 21:31 O2 Del Method 03/11/22 21:31 O2 Flow Rate 5 03/07/22 07:50 Results & Data ([facility]) Laboratory Results Laboratory Results - last 24 hr 03/12/22 03/12/22 07:32 07:32 WBC 8.50 RBC 3.95 L Hgb 12.3 L Hct 37.2 L MCV 94.2 MCH 31.1 MCHC 33.1 RDW Std Deviation 47.1 H RDW Coeff of Leyla 13.7 Plt Count 199 MPV 9.1 L Sodium 137 Potassium 3.8 Chloride 104 Carbon Dioxide 27 Anion Gap 6 BUN 10 Creatinine 0.80 Est Cr Clr Drug Dosing 77.3 Est GFR ( Amer) 104.2 Est GFR (Non-Af Amer) 89.9 BUN/Creatinine Ratio 12.5 Glucose 112 H Calcium 8.4 L Phosphorus 3.0 Magnesium 1.9 Total Bilirubin 0.9 Direct Bilirubin 0.2 AST 24 ALT 27 Alkaline Phosphatase 52 Total Protein 5.5 L Albumin 3.0 L Globulin 2.5 Albumin/Globulin Ratio 1.2 Current Inpatient Medications Current Inpatient Medications: Current Inpatient Medications Acetaminophen (Acetaminophen 325 Mg Tab) 650 mg PO Q4H PRN PRN Reason: Moderate Pain Stop: 04/03/22 22:13 Benztropine Mesylate (Benztropine Mesylate 0.5 Mg Tab) 0.5 mg PO Q8 PRN PRN Reason: dystonia/thick tongue Stop: 04/09/22 14:29 Last Admin: 03/12/22 11:14 Dose: 0.5 mg Enoxaparin Sodium (Enoxaparin Inj 40 Mg/0.4 Ml Syr) 40 mg SQ QAM [facility] Stop: 04/07/22 08:59 Last Admin: 03/12/22 10:47 Dose: 40 mg Pantoprazole Sodium 40 mg/ (Syringe) 10 mls @ 5 mls/min IV DAILY@1100 [facility] Stop: 04/05/22 10:59 Last Admin: 03/12/22 11:13 Dose: 5 mls/min Cefazolin Sodium (Ancef 2000mg) 2,000 mg in 15 mls @ 3.75 mls/min IV Q8H [facility] Stop: 03/25/22 08:59 Last Admin: 03/12/22 11:13 Dose: 3.75 mls/min Lorazepam (Lorazepam 0.5 Mg Tab) 0.5 mg PO TID PRN PRN Reason: Agitation Stop: 04/08/22 08:37 Last Admin: 03/12/22 10:45 Dose: 0.5 mg Magnesium Oxide (Magnesium Oxide 400 Mg Tab) 400 mg PO BID [facility] Stop: 04/09/22 13:44 Last Admin: 03/12/22 10:46 Dose: 400 mg Olanzapine (Olanzapine 10 Mg/2.1 Ml Sdv) 2.5 mg IM Q6H PRN PRN Reason: Anxiety/Agitation Stop: 04/04/22 15:33 Last Admin: 03/12/22 00:37 Dose: 2.5 mg Ondansetron HCl (Ondansetron Inj 2 Mg/Ml 2 Ml Vial) 4 mg IV Q4H PRN PRN Reason: Nausea And Vomiting Stop: 04/03/22 22:13 Ondansetron HCl (Ondansetron 4 Mg Od Tab) 4 mg PO Q6H PRN PRN Reason: Nausea Stop: 04/08/22 12:05 Pantoprazole Sodium (Pantoprazole 40 Mg Tab) 40 mg PO DAILY [facility] Stop: 04/04/22 08:59 Last Admin: 03/06/22 10:54 Dose: Not Given Risperidone (Risperidone Odt 1mg) 1 mg PO BID [facility] Stop: 04/07/22 20:59 Last Admin: 03/12/22 10:45 Dose: 1 mg Risperidone (Risperidone Odt 1mg) 1 mg PO Q8 PRN PRN Reason: Agitation Stop: 04/09/22 14:29 Last Admin: 03/12/22 12:23 Dose: 1 mg (1) Altered mental status Altered mental status type: unspecified Qualified Code(s): R41.82 - Altered mental status, unspecified
--- NOTE | 2022-03-12 16:16 | Cardiology Progress Note ---
Date of Service March 12, 2022 Assessment & Plan (1) Bacteremia: Plan: -Patient initially presented with acute change mental status, under police supervision, and received treatment for rhabdomyolysis, presenting CPK level 5697 units/L on 03/04/2022, down to 350 units/L. -Has been followed by psychiatry and is currently back on his risperidone, and per review of his chart it sounds like his mentation is trending in the right direction. / blood cultures obtained at time of presentation 03/06/2022 yielded sensitive staph aureus. Repeat cultures obtained on antibiotics 03/08/2022 are negative x2. -He is tolerating IV cefazolin and is afebrile. Echocardiogram images obtained yesterday reviewed independently. Rather than describing this as a positive abnormal echocardiogram, I would describe it as being an equivocal, technically limited echocardiogram. Transesophageal echocardiogram would be more informative with regards to determining necessary duration of antibiotic therapy. Patient states he is agreeable to this. Spoke to his spouse, Aubree, who is also agreeable. Given the circumstances, we will tentatively make the patient n.p.o. after midnight, and will see if he can be an add-on case later tomorrow morning or early tomorrow afternoon so that anesthesia has time to meet with him and to review his chart in detail. Admission and Anticipated Discharge Date Admission Date: March 04, 2022 Subjective Patient seen in follow-up of staff aureus bacteremia. Patient currently remains in room 302. Has no IV access at present, but I believe this is because an issue to be relocated, not because he pulled it out. Physical Exam Physical Exam: Temp Pulse Resp BP Pulse Ox O2 Del Method O2 Flow Rate 36.3 C L 97 H 18 110/60 90 5 03/12/22 15:20 03/12/22 15:20 03/12/22 15:20 03/12/22 15:20 03/12/22 15:20 03/12/22 15:20 03/07/22 07:50 Respiratory: normal respiratory effort, lungs clear to auscultation Cardiovascular: RRR, no murmur, no edema Gastrointestinal (Abdomen): normal bowel sounds, soft, nontender, no hepatosplenomegaly Neurologic: PERRL, EOMI, accommodation nl, no face palsy, no dysarthria Results & Data ([facility]) Laboratory Results Cardiac Enzymes 03/12/22 Range/Units 07:32 AST 24 (13-39) U/L CBC 03/12/22 Range/Units 07:32 WBC 8.50 (4.8-10.8) K/ul RBC 3.95 L (4.63-6.08) M/uL Hgb 12.3 L (14.0-18.0) g/dl Hct 37.2 L (40.1-51.0) % Plt Count 199 (130-400) K/uL Comprehensive Metabolic Panel 03/12/22 Range/Units 07:32 Sodium 137 (136-145) mmol/L Potassium 3.8 (3.5-5.1) mmol/L Chloride 104 (98-107) mmol/L Carbon Dioxide 27 (21-32) mmol/L BUN 10 (6-23) mg/dl Creatinine 0.80 (0.6-1.4) mg/dl Glucose 112 H (70-99(Fasting)) mg/dl Calcium 8.4 L (8.5-10.1) mg/dl Direct Bilirubin 0.2 (0-0.2) mg/dl AST 24 (13-39) U/L ALT 27 (7-52) U/L Alkaline Phosphatase 52 (34-104) U/L Total Protein 5.5 L (6.0-8.3) gm/dl Albumin 3.0 L (3.4-5.0) gm/dl
[2022-03-13] MEDS: ceFAZolin 2000MG 2,000 MG/15 ML SYR IV SCH ×3 (00:22→16:03)
[2022-03-13] MEDS: LORazepam 0.5 MG TAB PO PRN ×3 (05:19→23:25)
[2022-03-13 06:08] LABS: Hematocrit (blood only) 33.8 % (40.1-51.0); Mean Corpuscular Hemoglobin 31.2 pg (25.0-34.0); Mean Corpuscular Hgb Conc 32.5 g/dL (32.0-36.0); Mean Corpuscular Volume 95.8 fL (80.0-100.0); Mean Platelet Volume 9.2 fL (9.4-12.4); Platelet Count 205 K/uL (130-400); RDW Coefficient of Variation 14.3 % (11.5-14.5); RDW Standard Deviation 49.7 fL (36.4-46.3); Red Blood Count 3.53 M/uL (4.63-6.08)
[2022-03-13 06:35] LABS: BUN Creatinine Ratio 12.8 (10-20); Calcium 8.1 mg/dl (8.5-10.1); Creatinine Clr Calc Pharmacy 65.8 ml/min; Est GFR (African American) 94.2 ml/min; Est GFR (Non-African American) 81.2 ml/min; Phosphorus 2.9 mg/dl (2.5-4.9); Potassium 4.7 mmol/L (3.5-5.1)
--- NOTE | 2022-03-13 10:07 | Anesthesiology Consultation ---
Date of Service March 13, 2022 Assessment & Plan Chart Review Chart Review: Acceptable Risk for Surgery and Patient NOT seen in Pre Admission Testing Consults Requested none ASA ASA4 Proposed Anesthesia Anesthesia Type: MAC History Surgery Operation Date: 03/13/22 12:00 Proposed Procedures p Transesophageal Echo w/Anesthesia - Omer Mitchell DO Height/Weight Height: 6 ft Weight: 64.5 kg Allergies Allergy/AdvReac Type Severity Reaction Status Date / Time No Known Allergies Allergy Verified 03/04/22 22:18 Medications Home Medications Medication Instructions Recorded Confirmed Last Taken pantoprazole 40 mg tablet,delayed 40 mg PO DAILY 03/04/22 03/04/22 Unknown release risperidone 2 mg tablet 2 mg PO QPM 03/04/22 03/04/22 Unknown Active Medications Generic Name Dose Route Start Last Admin Trade Name Freq PRN Reason Stop Dose Admin Benztropine Mesylate 0.5 mg 03/10/22 14:30 03/12/22 19:57 Benztropine Mesylate 0.5 Mg Tab PO 04/09/22 14:29 0.5 mg Q8 PRN Administration dystonia/thick tongue Enoxaparin Sodium 40 mg 03/08/22 09:00 03/12/22 10:47 Enoxaparin Inj 40 Mg/0.4 Ml Syr SQ 04/07/22 08:59 40 mg QAM CIERRA Administration Pantoprazole Sodium 40 mg/ 10 mls @ 5 mls/min 03/06/22 11:00 03/12/22 11:13 Syringe IV 04/05/22 10:59 5 mls/min DAILY@1100 CIERRA Administration Cefazolin Sodium 2,000 mg in 15 mls @ 3.75 mls/min 03/11/22 16:30 03/13/22 00:22 Ancef 2000mg IV 03/25/22 08:59 3.75 mls/min Q8H CIERRA Administration Lorazepam 0.5 mg 03/12/22 19:31 03/13/22 05:19 Lorazepam 0.5 Mg Tab PO 04/09/22 16:03 0.5 mg QID PRN Administration Agitation Magnesium Oxide 400 mg 03/10/22 13:45 03/12/22 19:57 Magnesium Oxide 400 Mg Tab PO 04/09/22 13:44 400 mg BID CIERRA Administration Olanzapine 2.5 mg 03/07/22 05:48 03/12/22 00:37 Olanzapine 10 Mg/2.1 Ml Sdv IM 04/04/22 15:33 2.5 mg Q6H PRN Administration Anxiety/Agitation Pantoprazole Sodium 40 mg 03/05/22 09:00 03/06/22 10:54 Pantoprazole 40 Mg Tab PO 04/04/22 08:59 Not Given DAILY CIERRA Risperidone 1 mg 03/08/22 21:00 03/12/22 19:57 Risperidone Odt 1mg PO 04/07/22 20:59 1 mg BID CIERRA Administration Risperidone 1 mg 03/10/22 14:30 03/13/22 06:00 Risperidone Odt 1mg PO 04/09/22 14:29 1 mg Q8 PRN Administration Agitation Past Medical History Medical History B12 deficiency Charles esophagus Bipolar disorder DDD (degenerative disc disease) Slow transit constipation Exercise / Class Metabolic Activity II 4-5 Yardwork/Stairs/Walk up hill Past Family History Family History Mother Neurological disorder Father Diabetes Past Surgical History Surgical History Hx of colonoscopy Hx of esophagogastroduodenoscopy Hx of inguinal hernia repair Past Anesthesia History No Hx of Anesthesia Complications and No Family Hx of Anesthesia Complications History of PONV No Hx of PONV and No Hx of Motion Sickness Social History Smoking Status: Never smoker Do You Dip or Chew Tobacco: No Hx Alcohol Use: No Hx Substance Use: No Physical Exam Vital Signs Last Vital Signs Temp 36.4 C L 03/12/22 22:11 Pulse 92 H 03/12/22 22:11 Resp 22 03/12/22 22:11 BP 123/75 03/12/22 22:11 Pulse Ox 100 03/12/22 22:11 O2 Del Method 03/12/22 22:11 O2 Flow Rate 5 03/07/22 07:50 Testing Laboratory Results 03/13/22 05:46 03/13/22 05:46 PT 12.4 Seconds (9.0-12.0) H 03/07/22 05:51 INR 1.2 (0.9-1.1) H 03/07/22 05:51 APTT 22.7 Seconds (21.0-31.0) 03/06/22 21:20 Hemoglobin A1c 5.6 % (4.5-5.6) 03/05/22 11:38 Urine Color Yellow 03/05/22 03:08 Urine Appearance Clear (Clear) 03/05/22 03:08 Urine pH 5.0 (4.5-7.5) 03/05/22 03:08 Ur Specific [place] 1.025 (1.000-1.030) 03/05/22 03:08 Urine Protein 1+ (Negative) H 03/05/22 03:08 Urine Glucose (UA) Negative (Negative) 03/05/22 03:08 Urine Ketones 1+ (Negative) H 03/05/22 03:08 Urine Nitrite Negative (Negative) 03/05/22 03:08 Ur Leukocyte Esterase Negative (Negative) 03/05/22 03:08 Urine WBC (Auto) 1-5 /hpf (0-5) 03/05/22 03:08 Urine RBC (Auto) 0-4 /hpf (0-4) 03/05/22 03:08 U Hyaline Cast (Auto) 1-5 /lpf (0-5) 03/05/22 03:08 U Epithel Cells (Auto) 0-5 /lpf (0-5) 03/05/22 03:08 Urine Bacteria (Auto) Negative (Negative) 03/05/22 03:08 03/06/22 21:20 Aerobic Blood Culture - Final Blood Staphylococcus aureus Anaerobic Blood Culture - Final 03/06/22 21:20 Aerobic Blood Culture - Final Blood No growth in Aerobic bottle after 5 days. Anaerobic Blood Culture - Final No growth in Anaerobic bottle after 5 days. 03/08/22 14:36 Aerobic Blood Culture - Preliminary Blood No growth in Aerobic bottle after 48 hours. Anaerobic Blood Culture - Preliminary No growth in Anaerobic bottle after 48 hours. 03/08/22 14:36 Aerobic Blood Culture - Preliminary Blood No growth in Aerobic bottle after 48 hours. Anaerobic Blood Culture - Preliminary No growth in Anaerobic bottle after 48 hours. Electrocardiogram Date: 03/07/22 Findings: + NSR @ (at 75 w/ PVC's) Chest X-Ray Date: 03/06/22 Findings: + infiltrate (patchy B/L perihilar airspace opacities, R> L;mild apical emphysematous changes) Echocardiogram Date: 03/10/22 EF: 50% LV Function: normal RWMA: + none Valvular Disease: + pertinent finding (possible vegetation on AV left coronary cusp w/ possible abscess)
[2022-03-13] MEDS: OLANZapine 10 MG/2.1 ML SDV IM PRN ×2 (10:08→16:55)
[2022-03-13] MEDS ORDERED: BENZOCAINE/TETRACAIN/BUTAM 50 APPLN/5 GM CAN EXT ONE (10:16)
[2022-03-13] MEDS ORDERED: PROPOFOL IV EMULSION 10 MG/ML 20 ML VIAL IV ONE ×3 (10:28→11:10)
[2022-03-13] MEDS: ENOXAPARIN INJ 40 MG/0.4 ML SYR SQ SCH (10:36)
[2022-03-13] MEDS: MAGNESIUM OXIDE 400 MG TAB PO SCH ×2 (10:37→22:14)
--- NOTE | 2022-03-13 10:42 | Hospitalist Progress Note ---
Date of Service March 13, 2022 Assessment & Plan (1) Gram-positive cocci bacteremia: Plan: 71 yo male with a history of psychosis (?bipolar) from [facility] who had gone missing. He was admitted to medicine 03/04/22 for rhabdo [place]. MSSA bacteremia Blood clx 03/06 with Staph aureus, no MRSA. Repeat Blood Cx 03/08/22 remains negative at this time ID evaluation noted. ID had recommended ancef which is ideal. Patient was pulling lines and has been missing antibiotics TTE was reported as possible aortic valve vegetation with possible abscess as well as thickening of ant leaflet of mitral valve, though this was very limited study Patient had KATLEYN today which ruled out any vegetation Hence no endocarditis Patient ideally needs IV abx for about 2 weeks. However, with his regularly pulling IV, this will be difficult to achieve I discussed this with patient and . stated that IV will be tough for him and requested po option. I explained that is not standard of care and may not achieve treatment. We discussed risks of reinfection, bacteremia, endocarditis/metastatic infection and . They indicated understanding I called ID Dr Acevedo and informed him. He stated he will review and see what po options we may employ Will await final ID recs (2) Aspiration pneumonia: Plan: CXR 03/06/22 showed multifocal PNA, likely aspiration Pneumonitis/Pneumonia. Treated Currently on room air Aspiration precautions (3) Schizophrenia: Plan: Psych following. On risperidal (psych increased to bid), zyprexa prn. Ativan 0.5 mg tid prn (4) Altered mental status: Plan: CT of the brain is negative for any acute findings UDS negative, lyme and other tick borne disease negative Patient is on a 302, psych following (5) Rhabdomyolysis: Plan: -s/p iv fluids, elevated CK level of 5697->4800->2400>800. (6) Elevated bilirubin: (7) Transaminitis: Plan: Repeat LFT improving, tick borne work up negative so far Liver enzymes normalized (8) Charles esophagus: Plan: continue PPI (9) DDD (degenerative disc disease): Plan DVT ppx: lovenox Dispo: is making decisions for patient. Plan to dc once med stable and ok with psych sister Pretty [phone] 's no [phone] Admission and Anticipated Discharge Date Admission Date: March 04, 2022 Subjective Patient seen and examined Has been getting agitated and pulling IV Currently denied any complaints Denied any fevers, chills, nausea, vomiting Denied cough, SOB, chest pain Denied abd pain, diarrhea, constipation Denied dysuria, freq Required a lot of discussion to get him to agree to go for KATELYN Physical Exam Constitutional: no acute distress Eyes: PERRL, conjunctivae normal, anicteric sclerae ENMT: external ear and nose normal, oropharynx normal Respiratory: normal respiratory effort, lungs clear to auscultation Cardiovascular: Rate/Rhythm: regular rate and regular rhythm S1 S2 Gastrointestinal (Abdomen): normal bowel sounds, soft, nontender, no hepatosplenomegaly Musculoskeletal: No pedal edema Pulled nails healing well Neurologic: PERRL, EOMI, accommodation nl, no face palsy, no dysarthria Psychiatric: Orientation: alert, oriented to person and oriented to place; + not oriented to time Results & Data Results & Data ([facility]) Laboratory Results Abnormal lab results 03/13/22 03/13/22 Range/Units 05:46 05:46 RBC 3.53 L (4.63-6.08) M/uL Hgb 11.0 L (14.0-18.0) g/dl Hct 33.8 L (40.1-51.0) % RDW Std Deviation 49.7 H (36.4-46.3) fL MPV 9.2 L (9.4-12.4) fL Glucose 101 H (70-99(Fasting)) mg/dl Calcium 8.1 L (8.5-10.1) mg/dl (1) Rhabdomyolysis Rhabdomyolysis type: non-traumatic Qualified Code(s): M62.82 - Rhabdomyolysis (2) Altered mental status Altered mental status type: unspecified Qualified Code(s): R41.82 - Altered mental status, unspecified
--- NOTE | 2022-03-13 10:55 | History & Physical Bridge Note ---
Date of Service March 13, 2022 History & Physical Bridge Note I have examined the patient, reviewed the History & Physical and in the interval since the performance of the History & Physical I have noted the following changes of clinical significance: no changes noted. Informed consent obtained verbally from the patient. Given his issues with regards to cognitive impairment, informed consent obtained by phone call with his spouse, Aubree, who consented to the procedure on the patient's behalf.
[2022-03-13] MEDS ORDERED: PHENYLEPHRINE HCL 10 MG/ML VIAL ONE (11:10)
--- NOTE | 2022-03-13 11:27 | Post Operative Brief Note ---
Cardiology Brief Post Op Date of Surgery March 13, 2022 Pre & Post Diagnosis Operation Date: 03/13/22 12:00 Preprocedure diagnosis: Staph aureus bacteremia, assess for vegetation Procedure Transesophageal echocardiogram: After informed consent was obtained (via telephone with the patient's spouse) patient was sedated with the assistance of anesthesia receiving a total of 150 mg of IV propofol. 300 mcg of phenylephrine were administered for blood pressure support. Transesophageal echocardiogram was completed. There is no evidence of valvular vegetation. 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 The aortic valve is trileaflet in morphology, without vegetation, no significant aortic regurgitation. No perivalvular abscess. Plan: Complete course of antibiotics as per hospitalist/infectious disease. No further cardiac testing indicated at this time. Water Main Installer Helper Omer Mitchell DO Operations Executive Cecy Fernando, [facility] Estimated Blood Loss 0 Findings Consistent with Post-Op Diagnosis as noted above. Anesthesia Type MAC
--- NOTE | 2022-03-13 11:34 | Anesthesiology Progress Note ---
Date of Service March 13, 2022 Anesthesia Post Procedure Vital Signs Vital Signs: Temp Pulse Pulse Resp BP BP Pulse Ox 03/13/22 11:00 108 H 16 107/78 98 03/12/22 22:11 36.4 C L 92 H 22 123/75 100 03/12/22 15:20 36.3 C L 97 H 18 110/60 90 O2 Del Method O2 Flow Rate 03/13/22 11:00 Nasal Cannula 4 03/12/22 22:11 Room Air 03/12/22 15:20 Room Air Transfer of Care Handoff Completed per policy Notes Mental Status: alert / awake / arousable Patient Amnestic to Procedure: Yes Nausea / Vomiting: adequately controlled Pain: adequately controlled Airway Patency, RR, SpO2: stable & adequate BP & HR: stable & adequate Hydration State: stable & adequate Anesthetic Complications: no major complications apparent
--- NOTE | 2022-03-13 11:35 | Communication Note ---
Date of Service: March 13, 2022 I called patient's spouse, discussed the KATELYN results with her. No further cardiac testing recommended at this time.
[2022-03-13] MEDS: PANTOprazole 40 MG in SYRINGE 0 ML IV SCH (11:54)
[2022-03-13] MEDS: BENZTROPINE MESYLATE 0.5 MG TAB PO PRN (11:54)
[2022-03-14] MEDS: ceFAZolin 2000MG 2,000 MG/15 ML SYR IV SCH ×2 (01:27→10:13)
[2022-03-14] MEDS: ENOXAPARIN INJ 40 MG/0.4 ML SYR SQ SCH (10:13)
[2022-03-14] MEDS: PANTOprazole 40 MG in SYRINGE 0 ML IV SCH (10:14)
[2022-03-14] MEDS: MAGNESIUM OXIDE 400 MG TAB PO SCH ×2 (10:14→21:00)
--- NOTE | 2022-03-14 11:02 | Psychiatric Progress Note ---
Date of Service March 14, 2022 Impression / Recommendations Impression 71 yo male with non-adherence to psychiatric medication since October or November of 2021 for history of schizophrenia with acute AMS with rhabdo admitted medically and found to have acute sepsis with ongoing treatment for this but continued delirium. Diagnostically his presentation is most consistent with delirium giving waxing and waning course, limited response to multiple days of antipsychotic treatment including no significant response to IM antipsychotic treatment, long period of antipsychotic non-adherence prior to hospitalization and sudden onset of AMS and ongoing infection for which he is struggling to t olerate required IV antibiotics. Initially there was concern for agitated catatonia so ativan was started but at this point he has not demonstrated any benefit from this and I worry it is contributing to and prolonging his delirium. Per discussion with the hospitalist, Dr. Hanks is concerned that being in the hospital is contributing to prolonged delirium. We also discussed my feeling that Bolivar's delirium may take longer to resolve given his already fragile/susceptible brain given history of schizophrenia. I reviewed his 302 warrant which his had completed and given ongoing delirium with lack of decision making capacity about treatment and medical decisions and need for medical emergency and care I contacted his Aubree for further collateral and spoke with her for about 25 minutes. She confirmed that his prior episodes of schizophrenia have improved quickly with risperidone and that he last filled his risperidone in about - confirmed with pharmacy he last filled it in October 2021 (she picked up a script a week prior to his medical admission but he would not take it) and that the symptoms that lead to his wandering and hospital admission came on suddenly a fe w days before his hospital admission. She noted he has a history of wandering in the past due to paranoia with schizophrenia but that he returns after a few days and has been stable in regard to schizophrenia since 2007. She feels this presentation is very different from his prior episodes of schizophrenia with acute psychosis as those improved quickly with medications and he did not experience disorientation like with this presentation. Given all of the collateral information and seeing him over the course of the last three days I do not feel that his current symptoms are driven by a primary psychiatric condition such as schizophrenia but rather due to delirium and therefore does not meet 302 criteria and continues to deny SI, HI, no evidence of responding to internal stimuli, and no evidence for acute carmen. He is acutely delirious and does not have decision making capacity to leave AMA and I would worry about him wandering if confusion and paranoia worsened at home and feel he continues to require medical treatment for his delirium until the hospitalist feels he is medically stable for discharge. 03/12/22: Ongoing delirium. Will disocntinue ativan. Increase risperidone to 1mg qAM & 2 mg qhs to further target delirium. (1) Altered mental status: (2) Delirium: (3) Schizophrenia: Plan -increase risperidone -1-on-1 per discretion of hospitalist given police warrant/unpredictable behavior/attempts at elopement -302 warrant dispositoned but does not have decision making capacity to leave AMA due to acute delirium -Involve his to help with reassurance -psych liasons to provide information on outpatient psychiatric resources if he desires to meet with outpt psychiatry for management of risperidone once deliriu m improves Interval History Identifying Information 71 yo male with a history of schizophrenia, from [facility] who had gone missing. He was admitted to medicine 03/04/22 for rhabdo after being found wandering in a [facility] area. Psychiatry was consulted for recommendations. Chief Complaint "Something just snapped I guess". Review of Systems Notes poor appetite, per electromechanical engineer appears to have sleep intermittently overnight but at other times was awake and agitated requiring mechanical restraints due to pulling on his IV line. Subjective Subjective Patient was seen & assessed and interval progress reviewed. Continues to have periods of confusion including code shane yesterday morning after he ran down the shine in an attempt to flee the hospital reporting paranoia about the staff and concern he was going to be transported somewhere. He remains resistant to medications but did take both doses of risperidone yesterday and required IM zyprexa 2.5mg after code shane event. Continues to have poor appetite, also not willing to eat any packaged food. Pulled out his IV for antibiotics. Today he is oriented to being in the hospital and that the month is March and year is 2021 but otherwise minimally oriented to recent events and unable to describe rationale for treatment, risks of refusing, or give details for why he is declining care. Remains scared, only responding in yes or no answers to most questions. Tells me he removed his IV because "something just snapped I guess". Reviewed importance of his medications and that he is safe here. He's unable to recall talking with his shortly before my visit nor his discussion with psych liason about 20minutes before I came to see him. Procedures Performed Operation Date: 03/13/22 12:00 Actual Procedures p Echo Transesophageal - Omer Mitchell, Physical Exam Psychiatric Orientation: alert, oriented to person and oriented to place; + not oriented to time Apperance: appropriately dressed and + disheveled Eye Contact: + poor eye contact Motor Behavior: no abnormal motor movements; n EPS Speech: normal rate/rhythm/volume of speech Affect: + anxious affect Mood: + anxious mood and + irritable mood Thought Process: + looseness of associations Thought Content: + paranoid Suicidal Thoughts: denies suicidal thoughts Homicidal Thoughts: denies homicidal thoughts Hallucinations: no auditory hallucinations (no evidence of responding to internal stimuli) and no visual hallucinations Insight: + severely impaired insight Judgement: + severely impaired judgement Vital Signs (Past 24 Hours) Last Vital Signs Temp 36.3 C L 03/14/22 09:24 Pulse 110 H 03/14/22 09:24 Resp 18 03/14/22 09:24 BP 130/68 03/14/22 09:24 Pulse Ox 96 03/14/22 09:24 O2 Del Method 03/14/22 09:24 O2 Flow Rate 4 03/13/22 11:35 Results & Data ([facility]) Current Inpatient Medications Current Inpatient Medications: Current Inpatient Medications Acetaminophen (Acetaminophen 325 Mg Tab) 650 mg PO Q4H PRN PRN Reason: Moderate Pain Stop: 04/03/22 22:13 Benztropine Mesylate (Benztropine Mesylate 0.5 Mg Tab) 0.5 mg PO Q8 PRN PRN Reason: dystonia/thick tongue Stop: 04/09/22 14:29 Last Admin: 03/13/22 11:54 Dose: 0.5 mg Enoxaparin Sodium (Enoxaparin Inj 40 Mg/0.4 Ml Syr) 40 mg SQ QAM [facility] Stop: 04/07/22 08:59 Last Admin: 03/14/22 10:13 Dose: Not Given Pantoprazole Sodium 40 mg/ (Syringe) 10 mls @ 5 mls/min IV DAILY@1100 [facility] Stop: 04/05/22 10:59 Last Admin: 03/14/22 10:14 Dose: Not Given Cefazolin Sodium (Ancef 2000mg) 2,000 mg in 15 mls @ 3.75 mls/min IV Q8H [facility] Stop: 03/25/22 08:59 Last Admin: 03/14/22 10:13 Dose: Not Given Lorazepam (Lorazepam 0.5 Mg Tab) 0.5 mg PO QID PRN PRN Reason: Agitation Stop: 04/09/22 16:03 Last Admin: 03/13/22 23:25 Dose: 0.5 mg Magnesium Oxide (Magnesium Oxide 400 Mg Tab) 400 mg PO BID [facility] Stop: 04/09/22 13:44 Last Admin: 03/14/22 10:14 Dose: Not Given Olanzapine (Olanzapine 10 Mg/2.1 Ml Sdv) 2.5 mg IM Q6H PRN PRN Reason: Anxiety/Agitation Stop: 04/04/22 15:33 Last Admin: 03/13/22 16:55 Dose: 2.5 mg Ondansetron HCl (Ondansetron Inj 2 Mg/Ml 2 Ml Vial) 4 mg IV Q4H PRN PRN Reason: Nausea And Vomiting Stop: 04/03/22 22:13 Ondansetron HCl (Ondansetron 4 Mg Od Tab) 4 mg PO Q6H PRN PRN Reason: Nausea Stop: 04/08/22 12:05 Pantoprazole Sodium (Pantoprazole 40 Mg Tab) 40 mg PO DAILY [facility] Stop: 04/04/22 08:59 Last Admin: 03/06/22 10:54 Dose: Not Given Risperidone (Risperidone Odt 1mg) 1 mg PO BID [facility] Stop: 04/07/22 20:59 Last Admin: 03/14/22 10:14 Dose: Not Given Risperidone (Risperidone Odt 1mg) 1 mg PO Q8 PRN PRN Reason: Agitation Stop: 04/09/22 14:29 Last Admin: 03/13/22 11:54 Dose: 1 mg (1) Altered mental status Altered mental status type: unspecified Qualified Code(s): R41.82 - Altered mental status, unspecified
--- NOTE | 2022-03-14 14:11 | Hospitalist Progress Note ---
Date of Service March 14, 2022 Assessment & Plan (1) Gram-positive cocci bacteremia: Plan: 71 yo male with a history of psychosis (?bipolar) from [facility] who had gone missing. He was admitted to medicine 03/04/22 for rhabdo after being [place]. MSSA bacteremia Blood clx 03/06 with Staph aureus, no MRSA. Repeat Blood Cx 03/08/22 remains negative at this time ID evaluation noted. ID had recommended ancef which is ideal. Patient was pulling lines and has been missing antibiotics TTE was reported as possible aortic valve vegetation with possible abscess as well as thickening of ant leaflet of mitral valve, though this was very limited study Patient had KATELYN which ruled out any vegetation Hence no endocarditis Patient has been pulling iv and declining IV antibiotics. Had discussed with yesterday and she wanted oral antibiotics. I called her again today. We discussed that po antibiotics is not standard of care and may lead to failure of treatment. She indicated understanding and prefers that since he keeps pulling IVs I had discussed with ID Dr Acevedo who recommend doing po keflex if family insists on po antibiotics Discussed with pharm. Will do po keflex 1g q6h to complete antibiotic treatment (2) Aspiration pneumonia: Plan: CXR 03/06/22 showed multifocal PNA, likely aspiration Pneumonitis/Pneumonia. Treated Currently on room air Aspiration precautions (3) Schizophrenia: (4) Altered mental status: Plan: CT of the brain is negative for any acute findings UDS negative, lyme and other tick borne disease negative Discussed agitation with psych. Patient has delirious episodes complicating care on the background of his schizophrenia Continue 1 : 1 for patient's safety Psych discontinued ativan and increased night time risperidone dose will like to talk with CM to explore dispo options from home health aides to placement CM notified (5) Rhabdomyolysis: Plan: -s/p iv fluids, elevated CK level of 5697->4800->2400>800. (6) Elevated bilirubin: (7) Transaminitis: Plan: Repeat LFT improving, tick borne work up negative so far Liver enzymes normalized (8) Charles esophagus: Plan: continue PPI (9) DDD (degenerative disc disease): Plan DVT ppx: lovenox Dispo: is making decisions for patient. Plan to dc once med stable and ok with psych sister Pretty [phone] 's no [phone] Admission and Anticipated Discharge Date Admission Date: March 04, 2022 Subjective Patient seen and examined Had been declining all meds today Currently denied any complaints Denied any fevers, chills, nausea, vomiting Denied cough, SOB, chest pain Denied abd pain, diarrhea, constipation Denied dysuria, freq Physical Exam Constitutional: no acute distress Eyes: PERRL, conjunctivae normal, anicteric sclerae ENMT: external ear and nose normal, oropharynx normal Respiratory: normal respiratory effort, lungs clear to auscultation Cardiovascular: Rate/Rhythm: regular rate and regular rhythm S1 S2 Gastrointestinal (Abdomen): normal bowel sounds, soft, nontender, no hepatosplenomegaly Musculoskeletal: No pedal edema Neurologic: PERRL, EOMI, accommodation nl, no face palsy, no dysarthria Psychiatric: Orientation: alert, oriented to person and oriented to place; + not oriented to time Results & Data Results & Data ([facility]) Vital Signs (Past 12 Hours) Vital Signs Temp Pulse Resp BP Pulse Ox O2 Del Method 03/14/22 09:24 36.3 C L 110 H 18 130/68 96 Room Air Laboratory Results Abnormal lab results 03/14/22 03/14/22 Range/Units 14:02 14:02 RBC 3.93 L (4.63-6.08) M/uL Hgb 12.4 L (14.0-18.0) g/dl Hct 36.8 L (40.1-51.0) % RDW Std Deviation 49.1 H (36.4-46.3) fL MPV 9.1 L (9.4-12.4) fL Glucose 109 H (70-99(Fasting)) mg/dl (1) Altered mental status Altered mental status type: unspecified Qualified Code(s): R41.82 - Altered mental status, unspecified (2) Rhabdomyolysis Rhabdomyolysis type: non-traumatic Qualified Code(s): M62.82 - Rhabdomyolysis
[2022-03-14 14:26] LABS: Hematocrit (blood only) 36.8 % (40.1-51.0); Hemoglobin 12.4 g/dl (14.0-18.0); Mean Corpuscular Hemoglobin 31.6 pg (25.0-34.0); Mean Corpuscular Hgb Conc 33.7 g/dL (32.0-36.0); Mean Corpuscular Volume 93.6 fL (80.0-100.0); Mean Platelet Volume 9.1 fL (9.4-12.4); Platelet Count 249 K/uL (130-400); RDW Coefficient of Variation 14.4 % (11.5-14.5); RDW Standard Deviation 49.1 fL (36.4-46.3); Red Blood Count 3.93 M/uL (4.63-6.08); White Blood Count 6.48 K/ul (4.8-10.8)
[2022-03-14 14:51] LABS: BUN Creatinine Ratio 12.5 (10-20); Calcium 8.5 mg/dl (8.5-10.1); Creatinine Clr Calc Pharmacy 70.2 ml/min; Est GFR (African American) 100.2 ml/min; Est GFR (Non-African American) 86.4 ml/min; Potassium 4.2 mmol/L (3.5-5.1)
[2022-03-14] MEDS: cephALEXin 500 MG CAP PO SCH ×2 (16:59→21:00)
[2022-03-15] MEDS: cephALEXin 500 MG CAP PO SCH ×4 (09:09→20:49)
[2022-03-15] MEDS: ENOXAPARIN INJ 40 MG/0.4 ML SYR SQ SCH (09:09)
[2022-03-15] MEDS: MAGNESIUM OXIDE 400 MG TAB PO SCH ×2 (09:10→20:48)
[2022-03-15] MEDS: PANTOprazole 40 MG in SYRINGE 0 ML IV SCH (12:16)
[2022-03-15 14:45] LABS: Hematocrit (blood only) 36.5 % (40.1-51.0); Hemoglobin 12.1 g/dl (14.0-18.0); Mean Corpuscular Hemoglobin 31.3 pg (25.0-34.0); Mean Corpuscular Hgb Conc 33.2 g/dL (32.0-36.0); Mean Corpuscular Volume 94.3 fL (80.0-100.0); Mean Platelet Volume 8.7 fL (9.4-12.4); Platelet Count 254 K/uL (130-400); RDW Coefficient of Variation 14.7 % (11.5-14.5); RDW Standard Deviation 50.6 fL (36.4-46.3); Red Blood Count 3.87 M/uL (4.63-6.08); White Blood Count 7.45 K/ul (4.8-10.8)
[2022-03-15 15:10] LABS: BUN Creatinine Ratio 20.4 (10-20); Calcium 8.6 mg/dl (8.5-10.1); Creatinine Clr Calc Pharmacy 63.1 ml/min; Est GFR (African American) 89.5 ml/min; Est GFR (Non-African American) 77.3 ml/min; Potassium 4.1 mmol/L (3.5-5.1)
--- NOTE | 2022-03-15 17:07 | Hospitalist Progress Note ---
Date of Service March 15, 2022 Assessment & Plan (1) Gram-positive cocci bacteremia: Plan 71 yo male with a history of psychosis (?bipolar) from [facility] who had gone missing. He was admitted to medicine 03/04/22 for rhabdo after being [place] wandering [place] a [place]. He is being managed for the following: MSSA bacteremia Blood clx 03/06 with Staph aureus, no MRSA. Repeat Blood Cx 03/08/22 remains negative at this time ID evaluation noted. ID had recommended ancef which is ideal. Patient was pulling lines and has been missing antibiotics, per prior attending's d/w pt's who wanted PO atb despite it not being standard of care and expressed understanding of risks a/w it, pt was started on keflex QID w/ ID recs to complete atb Rx. TTE equivocal, KATELYN ruled out any vegetations. c/w Keflex for 2wks from last negative blood culture Aspiration pneumonia: CXR 03/06/22 showed multifocal PNA, likely aspiration Pneumonitis/Pneumonia. Treated Currently on room air Aspiration precautions Schizophrenia: Altered mental status: CT of the brain is negative for any acute findings UDS negative, lyme and other tick borne disease negative Patient has delirious episodes complicating care on the background of his schizophrenia Continue 1 : 1 for patient's safety Psych discontinued ativan and increased night time risperidone dose /CM to explore dispo options from home health aides to placement Rhabdomyolysis: s/p ivf, resolved. Transaminitis/elevated bilirubin: normalized. Charles Esophagus: c/w PPI DVT ppx: lovenox Dispo: is making decisions for patient. Plan to dc once ok with psych and once his regular meds intake are ensured. sister Pretty [phone] 's no [phone] Admission and Anticipated Discharge Date Admission Date: March 04, 2022 Subjective Patient seen and examined at bedside for follow-up of MSSA bacteremia, aspiration pneumonia and delirium/schizophrenia/altered mental status. Patient was lying in bed, on four-point restraint, per RN patient was agitated overnight, yelling and had denied medications in the night and in the morning, denied breakfast in the morning. Patient initially not willing to talk and did not allow examination, talked with his over the phone and updated about the current status, later on patient wanted to talk with me and then again I went in the room to complete my examination, patient agreed to taking his medications then. Pt denied any pain or new complaints. Physical Exam Physical Exam: GENERAL: Alert and awake. NAD, on RA. four point restraints. slightly restless. HEENT: No pallor, no icterus. Pupils equal, round and reactive to light. Oral mucosa moist. NECK: No JVD, no neck masses. HEART: S1 and S2 heard. Regular rate and rhythm. No murmur, no gallop. RESPIRATORY SYSTEM: Normal AP diameter. No accessory muscle use. No wheezing, no crackles. ABDOMEN: Soft, bowel sounds present, nontender, no distention. CENTRAL NERVOUS SYSTEM: No facial droop. Speech is clear. Obeys simple commands. Moves extremities. EXTREMITIES: No edema, no erythema seen.
[2022-03-16] MEDS: MAGNESIUM OXIDE 400 MG TAB PO SCH ×2 (09:58→21:00)
[2022-03-16] MEDS: ENOXAPARIN INJ 40 MG/0.4 ML SYR SQ SCH (09:59)
[2022-03-16] MEDS: cephALEXin 500 MG CAP PO SCH ×4 (10:00→21:00)
[2022-03-16] MEDS: OLANZapine 10 MG/2.1 ML SDV IM PRN ×2 (10:36→18:10)
[2022-03-16] MEDS: PANTOprazole 40 MG in SYRINGE 0 ML IV SCH (12:00)
--- NOTE | 2022-03-16 14:10 | Psychiatric Progress Note ---
Date of Service March 16, 2022 Impression / Recommendations Impression 71 yo male with non-adherence to psychiatric medication since October or November of 2021 for history of schizophrenia with acute AMS with rhabdo admitted medically and found to have acute sepsis with ongoing treatment for this but continued delirium. Diagnostically his presentation is most consistent with delirium giving waxing and waning course, limited response to multiple days of antipsychotic treatment including no significant response to IM antipsychotic treatment, long period of antipsychotic non-adherence prior to hospitalization and sudden onset of AMS and ongoing infection for which he is struggling to tolerate required IV antibiotics. Initially there was concern for agitated catatonia so ativan was started but at this point he has not demonstrated any benefit from this and I worry it is contributing to and prolonging his delirium. Per discussion with the hospitalist, Dr. Hanks is concerned that being in the hospital is contributing to prolonged delirium. We also discussed my feeling that Bolivar's delirium may take longer to resolve given his already fragile/susceptible brain given history of schizophrenia. I reviewed his 302 warrant which his had completed and given ongoing delirium with lack of decision making capacity about treatment and medical decisions and need for medical emergency and care I contacted his Aubree for further collateral and spoke with her for about 25 minutes. She confirmed that his prior episodes of schizophrenia have improved quickly with risperidone and that he last filled his risperidone in about - confirmed with pharmacy he last filled it in October 2021 (she picked up a script a week prior to his medical admission but he would not take it) and that the symptoms that lead to his wandering and hospital admission came on suddenly a f ew days before his hospital admission. She noted he has a history of wandering in the past due to paranoia with schizophrenia but that he returns after a few days and has been stable in regard to schizophrenia since 2007. She feels this presentation is very different from his prior episodes of schizophrenia with acute psychosis as those improved quickly with medications and he did not experience disorientation like with this presentation. Given all of the collateral information and after seeing him over the course of the multiple days I did not feel that his current symptoms were driven primarily by his schizophrenia but rather due to delirium and some potential fixed delusions and paranoia related to schizophrenia but those symptoms had been stable at his chronic baseline for >4 months off of all medications so are unlikely to explain acutely recent worsening in behaviors. 03/16/22: Ongoing delirium and likely some paranoia from fixed delusions/underlying schizophrenia. Increase risperidone to 2mg BID given no side effects, ongoing significant paranoia and to further target delirium. (1) Altered mental status: (2) Delirium: (3) Schizophrenia: Plan -increase risperidone to 2mg BID -For behavioral emergency would use: zyprexa 5mg IM (monitor QTc if IM doses are required, goal QTc <500ms) -1-on-1 per discretion of hospitalist given police warrant/unpredictable behavior/attempts at elopement -Does not have decision making capacity to leave AMA due to acute delirium -Involve his to help with reassurance -psych liasons to provide information on outpatient psychiatric resources if he desires to meet with outpt psychiatry for management of risperidone once delirium improves Interval History Identifying Information 71 yo male with a history of schizophrenia, from [facility] who had gone missing. He was admitted to medicine 03/04/22 for rhabdo after being found wandering in a [place] area. Psychiatry was consulted for recommendations. Chief Complaint "I'm not going to be here when my comes to visit, they're going to send me somewhere". Subjective Subjective Patient was seen & assessed and interval progress reviewed. Code shane this morning after running into hallway stating desire to use a different telephone due to paranoia about phone in his room and difficulty figuring out how to dial out to reach his . Remains paranoia that we will "send him somewhere else". Continues to refuse his medications, though has ultimately agreed to take his risperidone and antibiotic every day, stating that "I just don't like how they make me feel, I don't need them". Procedures Performed Operation Date: 03/13/22 12:00 Actual Procedures p Echo Transesophageal - Omer Mitchell, DO Physical Exam Psychiatric Orientation: alert, oriented to person and oriented to place Apperance: appropriately dressed, appropriately groomed and + disheveled Eye Contact: + fair eye contact Motor Behavior: no abnormal motor movements; n EPS Speech: normal rate/rhythm/volume of speech Affect: + anxious affect Mood: + anxious mood and + irritable mood Thought Process: + looseness of associations Thought Content: + paranoid and + delusions Suicidal Thoughts: denies suicidal thoughts Homicidal Thoughts: denies homicidal thoughts Hallucinations: no auditory hallucinations (no evidence of responding to internal stimuli) and no visual hallucinations Cognition: language grossly intact; + recent memory not intact and + attention not intact Estimated Intelligence: consistent with education level Insight: + severely impaired insight Judgement: + severely impaired judgement Vital Signs (Past 24 Hours) Last Vital Signs Temp 36.6 C 03/15/22 20:55 Pulse 83 03/15/22 20:55 Resp 18 03/15/22 20:55 BP 102/61 03/15/22 20:55 Pulse Ox 97 03/15/22 20:55 O2 Del Method 03/15/22 20:55 O2 Flow Rate 4 03/13/22 11:35 Results & Data ([facility]) Laboratory Results Laboratory Results - last 24 hr 03/15/22 03/15/22 14:32 14:32 WBC 7.45 RBC 3.87 L Hgb 12.1 L Hct 36.5 L MCV 94.3 MCH 31.3 MCHC 33.2 RDW Std Deviation 50.6 H RDW Coeff of Leyla 14.7 H Plt Count 254 MPV 8.7 L Sodium 139 Potassium 4.1 Chloride 107 Carbon Dioxide 26 Anion Gap 6 BUN 20 Creatinine 0.98 Est Cr Clr Drug Dosing 63.1 Est GFR ( Amer) 89.5 Est GFR (Non-Af Amer) 77.3 BUN/Creatinine Ratio 20.4 H Glucose 108 H Calcium 8.6 Current Inpatient Medications Current Inpatient Medications: Current Inpatient Medications Acetaminophen (Acetaminophen 325 Mg Tab) 650 mg PO Q4H PRN PRN Reason: Moderate Pain Stop: 04/03/22 22:13 Last Admin: 03/15/22 01:25 Dose: 650 mg Benztropine Mesylate (Benztropine Mesylate 0.5 Mg Tab) 0.5 mg PO Q8 PRN PRN Reason: dystonia/thick tongue Stop: 04/09/22 14:29 Last Admin: 03/13/22 11:54 Dose: 0.5 mg Cephalexin HCl (Cephalexin 500 Mg Cap) 1,000 mg PO QID [facility]; Protocol Stop: 03/28/22 16:59 Last Admin: 03/16/22 10:00 Dose: Not Given Enoxaparin Sodium (Enoxaparin Inj 40 Mg/0.4 Ml Syr) 40 mg SQ QAM [facility] Stop: 04/07/22 08:59 Last Admin: 03/16/22 09:59 Dose: Not Given Pantoprazole Sodium 40 mg/ (Syringe) 10 mls @ 5 mls/min IV DAILY@1100 [facility] Stop: 04/05/22 10:59 Last Admin: 03/16/22 12:00 Dose: Not Given Magnesium Oxide (Magnesium Oxide 400 Mg Tab) 400 mg PO BID [facility] Stop: 04/09/22 13:44 Last Admin: 03/16/22 09:58 Dose: Not Given Olanzapine (Olanzapine 10 Mg/2.1 Ml Sdv) 2.5 mg IM Q6H PRN PRN Reason: Anxiety/Agitation Stop: 04/04/22 15:33 Last Admin: 03/16/22 10:36 Dose: 2.5 mg Ondansetron HCl (Ondansetron Inj 2 Mg/Ml 2 Ml Vial) 4 mg IV Q4H PRN PRN Reason: Nausea And Vomiting Stop: 04/03/22 22:13 Ondansetron HCl (Ondansetron 4 Mg Od Tab) 4 mg PO Q6H PRN PRN Reason: Nausea Stop: 04/08/22 12:05 Pantoprazole Sodium (Pantoprazole 40 Mg Tab) 40 mg PO DAILY [facility] Stop: 04/04/22 08:59 Last Admin: 03/06/22 10:54 Dose: Not Given Risperidone (Risperidone Odt 1mg) 1 mg PO Q8 PRN PRN Reason: Agitation Stop: 04/09/22 14:29 Last Admin: 03/14/22 14:33 Dose: 1 mg Risperidone (Risperidone Odt 1mg) 1 mg PO QD@08 [facility] Stop: 04/14/22 07:59 Last Admin: 03/16/22 09:58 Dose: Not Given Risperidone (Risperidone Odt 1mg) 2 mg PO HS [facility] Stop: 04/13/22 20:59 Last Admin: 03/15/22 20:49 Dose: 2 mg (1) Altered mental status Altered mental status type: unspecified Qualified Code(s): R41.82 - Altered mental status, unspecified
--- NOTE | 2022-03-16 17:15 | Hospitalist Progress Note ---
Date of Service March 16, 2022 Assessment & Plan (1) Gram-positive cocci bacteremia: Plan 71 yo male with a history of psychosis (?bipolar) from [facility] who had gone missing. He was admitted to medicine 03/04/22 for rhabdo after being [place]. He is being managed for the following: MSSA bacteremia Blood clx 03/06 with Staph aureus, no MRSA. Repeat Blood Cx 03/08/22 remains negative at this time ID evaluation noted. ID had recommended ancef which is ideal. Patient was pulling lines and has been missing antibiotics, per prior attending's d/w pt's who wanted PO atb despite it not being standard of care and expressed understanding of risks a/w it, pt was started on keflex QID w/ ID recs to complete atb Rx. TTE equivocal, KATELYN ruled out any vegetations. c/w Keflex for 2wks from last negative blood culture, using iv rocephin x 1 dose today as pt is refusing PO antibiotic. Aspiration pneumonia: CXR 03/06/22 showed multifocal PNA, likely aspiration Pneumonitis/Pneumonia. Treated Currently on room air Aspiration precautions Schizophrenia: Altered mental status: CT of the brain is negative for any acute findings UDS negative, lyme and other tick borne disease negative Patient has delirious episodes complicating care on the background of his schizophrenia Continue 1 : 1 for patient's safety, Pt doesn't have decision making capacity to leave AMA d/t acute delirium Psych discontinued ativan and increased risperidone to 2 mg BID; zyprexa 5mg im for behavioral emergency. /CM to explore dispo options from home health aides to placement Rhabdomyolysis: s/p ivf, resolved. Transaminitis/elevated bilirubin: normalized. Charles Esophagus: c/w PPI DVT ppx: lovenox Dispo: is making decisions for patient. Plan to dc once ok with psych and once his regular meds intake are ensured. sister Pretty [phone] 's no [phone] Admission and Anticipated Discharge Date Admission Date: March 04, 2022 Subjective Patient seen and examined at bedside for follow-up of MSSA bacteremia, aspiration pneumonia and delirium/schizophrenia/altered mental status. Pt was seen during "code Hale" today. Pt was agitated in AM and wanted to leave the room out to the nursing station to use the phone. Pt was hemodynamically stable and refused meds despite multiple counselling today. RN advised to use prn meds for agitation as needed. Pt denies discomfort or pain but would not converse on elaborating ROS. Since patient is not taking PO antibiotic, will add iv antibiotic dose for today. Will continue w/ PO as able. Physical Exam Physical Exam: GENERAL: Alert and awake. NAD, on RA. HEENT: No pallor, no icterus. Pupils equal, round and reactive to light. Oral mucosa moist. NECK: No JVD, no neck masses. HEART: S1 and S2 heard. Regular rate and rhythm. No murmur, no gallop. RESPIRATORY SYSTEM: Normal AP diameter. No accessory muscle use. No wheezing, no crackles. ABDOMEN: Soft, bowel sounds present, nontender, no distention. CENTRAL NERVOUS SYSTEM: No facial droop. Speech is clear. Obeys simple commands. Moves extremities. EXTREMITIES: No edema, no erythema seen.
[2022-03-16] MEDS ORDERED: cefTRIAXone SODIUM 2,000 MG in DEXTROSE 5% 50 ML IV ONE (17:30)
[2022-03-16 18:10] LABS: Hematocrit (blood only) 39.3 % (40.1-51.0); Hemoglobin 12.7 g/dl (14.0-18.0); Mean Corpuscular Hemoglobin 31.1 pg (25.0-34.0); Mean Corpuscular Hgb Conc 32.3 g/dL (32.0-36.0); Mean Corpuscular Volume 96.1 fL (80.0-100.0); Mean Platelet Volume 8.9 fL (9.4-12.4); Platelet Count 311 K/uL (130-400); RDW Coefficient of Variation 14.5 % (11.5-14.5); RDW Standard Deviation 51.3 fL (36.4-46.3); Red Blood Count 4.09 M/uL (4.63-6.08); White Blood Count 10.55 K/ul (4.8-10.8)
[2022-03-16 18:35] LABS: Creatinine Clr Calc Pharmacy 61.2 ml/min; Est GFR (African American) 86.3 ml/min; Est GFR (Non-African American) 74.5 ml/min
[2022-03-17 07:19] LABS: Hematocrit (blood only) 37.2 % (40.1-51.0); Hemoglobin 12.2 g/dl (14.0-18.0); Mean Corpuscular Hemoglobin 31.6 pg (25.0-34.0); Mean Corpuscular Hgb Conc 32.8 g/dL (32.0-36.0); Mean Corpuscular Volume 96.4 fL (80.0-100.0); Mean Platelet Volume 8.7 fL (9.4-12.4); Platelet Count 260 K/uL (130-400); RDW Coefficient of Variation 14.4 % (11.5-14.5); RDW Standard Deviation 50.6 fL (36.4-46.3); Red Blood Count 3.86 M/uL (4.63-6.08); White Blood Count 8.44 K/ul (4.8-10.8)
[2022-03-17] MEDS: cephALEXin 500 MG CAP PO SCH ×4 (07:21→22:38)
[2022-03-17] MEDS: ENOXAPARIN INJ 40 MG/0.4 ML SYR SQ SCH (07:22)
[2022-03-17] MEDS: MAGNESIUM OXIDE 400 MG TAB PO SCH ×2 (07:22→22:38)
[2022-03-17] MEDS: PANTOprazole 40 MG in SYRINGE 0 ML IV SCH (10:20)
--- NOTE | 2022-03-17 11:21 | Psychiatric Progress Note ---
Date of Service March 17, 2022 Impression / Recommendations Impression 71 yo male with non-adherence to psychiatric medication since October or November of 2021 for history of schizophrenia with acute AMS with rhabdo admitted medically and found to have acute sepsis with ongoing treatment for this but continued delirium. Diagnostically his presentation is most consistent with delirium giving waxing and waning course, limited response to multiple days of antipsychotic treatment including no significant response to IM antipsychotic treatment, long period of antipsychotic non-adherence prior to hospitalization and sudden onset of AMS and ongoing infection for which he is struggling to tolerate required IV antibiotics. Initially there was concern for agitated catatonia so ativan was started but at this point he has not demonstrated any benefit from this and I worry it is contributing to and prolonging his delirium. Per discussion with the hospitalist, Dr. Hanks is concerned that being in the hospital is contributing to prolonged delirium. We also discussed my feeling that Bolivar's delirium may take longer to resolve given his already fragile/susceptible brain given history of schizophrenia. I reviewed his 302 warrant which his had completed and given ongoing delirium with lack of decision making capacity about treatment and medical decisions and need for medical emergency and care I contacted his Aubree for further collateral and spoke with her for about 25 minutes. She confirmed that his prior episodes of schizophrenia have improved quickly with risperidone and that he last filled his risperidone in about - confirmed with pharmacy he last filled it in October 2021 (she picked up a script a week prior to his medical admission but he would not take it) and that the symptoms that lead to his wandering and hospital admission came on suddenly a f ew days before his hospital admission. She noted he has a history of wandering in the past due to paranoia with schizophrenia but that he returns after a few days and has been stable in regard to schizophrenia since 2007. She feels this presentation is very different from his prior episodes of schizophrenia with acute psychosis as those improved quickly with medications and he did not experience disorientation like with this presentation. Given all of the collateral information and after seeing him over the course of the multiple days I did not feel that his current symptoms were driven primarily by his schizophrenia but rather due to delirium and some potential fixed delusions and paranoia related to schizophrenia but those symptoms had been stable at his chronic baseline for >4 months off of all medications so are unlikely to explain acutely recent worsening in behaviors. 03/17/22: Some improvement this morning, seems to have less delirium and less some paranoia. Tremor may be side effect from higher dose of risperidone though in discussion with RN she felt it had acutely worsened as anxiety increased over the morning so asked her to monitor this and we can consider dose reduction tomorrow if necessary. (1) Altered mental status: (2) Delirium: (3) Schizophrenia: Plan -c/w risperidone to 2mg BID, monitor for worsenng of tremor -For behavioral emergency would use: zyprexa 5mg IM (monitor QTc if IM doses are required, goal QTc <500ms) -1-on-1 per discretion of hospitalist given police warrant/unpredictable behavi or/attempts at elopement -Does not have decision making capacity to leave AMA due to acute delirium -Involve his to help with reassurance -psych liasons to provide information on outpatient psychiatric resources if he desires to meet with outpt psychiatry for management of risperidone once delirium improves Interval History Identifying Information 71 yo male with a history of schizophrenia, from [facility] who had gone missing. He was admitted to medicine 03/04/22 for rhabdo after being found wandering in a [facility] area. Psychiatry was consulted for recommendations. Chief Complaint "I'm good, how are you?". Review of Systems Notes see subjective Subjective Subjective Patient was seen & assessed and interval progress reviewed. Reviewed risperidone yesterday. Received two doses of IM zyprexa 2.5mg. In the evening yesterday had another code shane after soft limb restraints were removed and he ran from his room and was aggressive, combative, biting and hitting staff per nursing note and 1:1 was re-initiated. This morning he accepted his medications including the antibiotic and was eating lunch when I arrived to see him. Stated his mood was good and he was hopeful about "going home in a few days". States he misses his . Asked him about his dogs and he was able to describe all three to me. Noticed significant tremor bilaterally today. Asked about it Bolivar stated he's had it for a few months but reviewed with 1-on-1 that she also noticed it was worse today. Discussed with Bolivar it could be medication side effect so we'll continue to monitor closely. He denied any other side effects from the medications, denied any pain. Procedures Performed Operation Date: 03/13/22 12:00 Actual Procedures p Echo Transesophageal - Omer Mitchell, DO Physical Exam Psychiatric Orientation: alert, oriented to person and oriented to place; + not oriented to time Apperance: appropriately dressed and appropriately groomed Eye Contact: + fair eye contact Motor Behavior: + tremor; n EPS Speech: normal rate/rhythm/volume of speech Affect: + anxious affect Mood: + anxious mood Thought Process: + concrete thought process Suicidal Thoughts: denies suicidal thoughts Homicidal Thoughts: denies homicidal thoughts Hallucinations: no auditory hallucinations (no evidence of responding to internal stimuli) and no visual hallucinations Cognition: language grossly intact; + recent memory not intact and + attention not intact Estimated Intelligence: consistent with education level Insight: + limited insight Judgement: + severely impaired judgement Vital Signs (Past 24 Hours) Last Vital Signs Temp 36.7 C 03/17/22 07:25 Pulse 75 03/17/22 07:25 Resp 20 03/17/22 07:25 BP 118/70 03/17/22 07:25 Pulse Ox 100 03/17/22 07:25 O2 Del Method 03/17/22 07:25 O2 Flow Rate 4 03/13/22 11:35 Results & Data ([facility]) Laboratory Results Laboratory Results - last 24 hr 03/16/22 03/16/22 03/17/22 18:00 18:00 07:07 WBC 10.55 8.44 RBC 4.09 L 3.86 L Hgb 12.7 L 12.2 L Hct 39.3 L 37.2 L MCV 96.1 96.4 MCH 31.1 31.6 MCHC 32.3 32.8 RDW Std Deviation 51.3 H 50.6 H RDW Coeff of Leyla 14.5 14.4 Plt Count 311 260 MPV 8.9 L 8.7 L Creatinine 1.01 Est Cr Clr Drug Dosing 61.2 Est GFR ( Amer) 86.3 Est GFR (Non-Af Amer) 74.5 Current Inpatient Medications Current Inpatient Medications: Current Inpatient Medications Acetaminophen (Acetaminophen 325 Mg Tab) 650 mg PO Q4H PRN PRN Reason: Moderate Pain Stop: 04/03/22 22:13 Last Admin: 03/15/22 01:25 Dose: 650 mg Benztropine Mesylate (Benztropine Mesylate 0.5 Mg Tab) 0.5 mg PO Q8 PRN PRN Reason: dystonia/thick tongue Stop: 04/09/22 14:29 Last Admin: 03/13/22 11:54 Dose: 0.5 mg Cephalexin HCl (Cephalexin 500 Mg Cap) 1,000 mg PO QID [facility]; Protocol Stop: 03/28/22 16:59 Last Admin: 03/17/22 07:21 Dose: 1,000 mg Enoxaparin Sodium (Enoxaparin Inj 40 Mg/0.4 Ml Syr) 40 mg SQ QAM [facility] Stop: 04/07/22 08:59 Last Admin: 03/17/22 07:22 Dose: Not Given Pantoprazole Sodium 40 mg/ (Syringe) 10 mls @ 5 mls/min IV DAILY@1100 [facility] Stop: 04/05/22 10:59 Last Admin: 03/17/22 10:20 Dose: 5 mls/min Magnesium Oxide (Magnesium Oxide 400 Mg Tab) 400 mg PO BID [facility] Stop: 04/09/22 13:44 Last Admin: 03/17/22 07:22 Dose: Not Given Olanzapine (Olanzapine 10 Mg/2.1 Ml Sdv) 2.5 mg IM Q6H PRN PRN Reason: Anxiety/Agitation Stop: 04/04/22 15:33 Last Admin: 03/16/22 18:10 Dose: 2.5 mg Ondansetron HCl (Ondansetron Inj 2 Mg/Ml 2 Ml Vial) 4 mg IV Q4H PRN PRN Reason: Nausea And Vomiting Stop: 04/03/22 22:13 Ondansetron HCl (Ondansetron 4 Mg Od Tab) 4 mg PO Q6H PRN PRN Reason: Nausea Stop: 04/08/22 12:05 Pantoprazole Sodium (Pantoprazole 40 Mg Tab) 40 mg PO DAILY [facility] Stop: 04/04/22 08:59 Last Admin: 03/06/22 10:54 Dose: Not Given Risperidone (Risperidone Odt 1mg) 1 mg PO Q8 PRN PRN Reason: Agitation Stop: 04/09/22 14:29 Last Admin: 03/14/22 14:33 Dose: 1 mg Risperidone (Risperidone Odt 1mg) 2 mg PO HS [facility] Stop: 04/13/22 20:59 Last Admin: 03/16/22 21:00 Dose: Not Given Risperidone (Risperidone Odt 1mg) 2 mg PO QD@08 [facility] Stop: 04/16/22 07:59 Last Admin: 03/17/22 07:22 Dose: 2 mg (1) Altered mental status Altered mental status type: unspecified Qualified Code(s): R41.82 - Altered m ental status, unspecified
--- NOTE | 2022-03-17 17:21 | Hospitalist Progress Note ---
Date of Service March 17, 2022 Assessment & Plan (1) Gram-positive cocci bacteremia: Plan 71 yo male with a history of psychosis (?bipolar) from [facility] who had gone missing. He was admitted to medicine 03/04/22 for rhabdo after being [place] wandering [place] a [place]. He is being managed for the following: MSSA bacteremia Blood clx 03/06 with Staph aureus, no MRSA. Repeat Blood Cx 03/08/22 remains negative at this time ID evaluation noted. ID had recommended ancef which is ideal. Patient was pulling lines and has been missing antibiotics, per prior attending's d/w pt's who wanted PO atb despite it not being standard of care and expressed understanding of risks a/w it, pt was started on keflex QID w/ ID recs to complete atb Rx. TTE equivocal, KATELYN ruled out any vegetations. c/w Keflex for 2wks from last negative blood culture, used iv rocephin x 1 dose on 03/16 for missed doses of PO atb. Aspiration pneumonia: CXR 03/06/22 showed multifocal PNA, likely aspiration Pneumonitis/Pneumonia. Treated Currently on room air Aspiration precautions Schizophrenia: Altered mental status: CT of the brain is negative for any acute findings UDS negative, lyme and other tick borne disease negative Patient has delirious episodes complicating care on the background of his schizophrenia Continue 1 : 1 for patient's safety, Pt doesn't have decision making capacity to leave AMA d/t acute delirium Psych discontinued ativan and increased risperidone to 2 mg BID; zyprexa 5mg im for behavioral emergency. /CM to explore dispo options from home health aides to placement Rhabdomyolysis: s/p ivf, resolved. Transaminitis/elevated bilirubin: normalized. Charles Esophagus: c/w PPI DVT ppx: lovenox Dispo: is making decisions for patient. Plan to dc once ok with psych and once his regular meds intake are ensured. sister Pretty [phone] 's no [phone] Admission and Anticipated Discharge Date Admission Date: March 04, 2022 Subjective Patient seen and examined at bedside for follow-up of MSSA bacteremia, aspiration pneumonia and delirium/schizophrenia/altered mental status. Patient was lying in bed, on room air, NAD, on four-point restraint, communicated with RN to remove the restraints gradually, was not agitated overnight per RN, is eating and taking his meds compliantly per RN today morning, did not take his oral antibiotics yesterday but did get a dose of IV Rocephin yesterday, denies headache/dizziness/chest pain/palpitations/other revi ew of symptoms. Physical Exam Physical Exam: GENERAL: Alert and awake. NAD, on RA. HEENT: No pallor, no icterus. Pupils equal, round and reactive to light. Oral mucosa moist. NECK: No JVD, no neck masses. HEART: S1 and S2 heard. Regular rate and rhythm. No murmur, no gallop. RESPIRATORY SYSTEM: Normal AP diameter. No accessory muscle use. No wheezing, no crackles. ABDOMEN: Soft, bowel sounds present, nontender, no distention. CENTRAL NERVOUS SYSTEM: No facial droop. Speech is clear. Obeys simple commands. Moves extremities. EXTREMITIES: No edema, no erythema seen. Results & Data Results & Data ([facility]) Vital Signs (Past 12 Hours) Vital Signs Temp Pulse Resp BP Pulse Ox O2 Del Method 03/17/22 15:46 36.4 C L 89 20 118/65 98 Room Air 03/17/22 07:25 36.7 C 75 20 118/70 100 Room Air
[2022-03-18] MEDS: ENOXAPARIN INJ 40 MG/0.4 ML SYR SQ SCH (09:32)
[2022-03-18] MEDS: cephALEXin 500 MG CAP PO SCH ×4 (09:32→22:02)
[2022-03-18] MEDS: MAGNESIUM OXIDE 400 MG TAB PO SCH ×2 (09:32→22:02)
[2022-03-18] MEDS: PANTOprazole 40 MG in SYRINGE 0 ML IV SCH (12:40)
[2022-03-18] MEDS ORDERED: OLANZapine ZYDIS 5 MG ORALLY DIS. TAB PO PRN (13:10)
--- NOTE | 2022-03-18 13:20 | Psychiatric Progress Note ---
Date of Service March 18, 2022 Impression / Recommendations Impression 71 yo male with non-adherence to psychiatric medication since October or November of 2021 for history of schizophrenia with acute AMS with rhabdo admitted medically and found to have acute sepsis with ongoing treatment for this but continued delirium. He has been cooperative with restart and dose titration of Risperdal, having breakthrough agitation, mainly around management of IV site, staying in room, etc. Last IM on 03/16. His presentation waxes and wanes throughout day/shift. (1) Altered mental status: (2) Delirium: (3) Schizophrenia: Plan so will split am dosing of Risperdal to hopefully minimize use of prn as 5 mg daily seems to be causing significant Parkinsonian side effects. Will add lose dose Cogentin 0.5 mg BID and monitor for cognitive side effects from anticholinergic. Will change prn PO antipsychotic to Zyprexa as less EPS. Interval History Identifying Information 71 yo male with a history of schizophrenia, from [facility] who had gone missing. He was admitted to medicine 03/04/22 for rhabdo after being found wandering in a [facility] area. Psychiatry was consulted for recommendations. Chief Complaint patient was seen with his , would not verbalize a complaint. Review of Systems Notes patient unmotivated to complete Subjective Subjective Patient was seen & assessed and interval progress reviewed. Patient seemed preoccupied with minimal to no affect as visited, significant upper body tremor which was not present few minutes prior when liaison interviewed patient. He would not talk about their pets. Received prn Risperdal before lunch, appears to be receiving 1 mg pretty much every day. Procedures Performed Operation Date: 03/13/22 12:00 Actual Procedures p Echo Transesophageal - Omer Mitchell, Physical Exam Psychiatric Orientation: alert; + uncooperative Eye Contact: + poor eye contact Motor Behavior: + tremor; n akathisia Speech: + abnormal rate/rhythm/volume of speech (very nonspontaneous) Affect: + anxious affect Mood: + anxious mood Thought Process: + concrete thought process Thought Content: + paranoid Suicidal Thoughts: denies suicidal thoughts Homicidal Thoughts: denies homicidal thoughts Hallucinations: no auditory hallucinations and no visual hallucinations Insight: + severely impaired insight Judgement: + severely impaired judgement Vital Signs (Past 24 Hours) Last Vital Signs Temp 36.4 C L 03/17/22 15:46 Pulse 89 03/17/22 15:46 Resp 20 03/17/22 15:46 BP 118/65 03/17/22 15:46 Pulse Ox 98 03/17/22 15:46 O2 Del Method 03/17/22 15:46 O2 Flow Rate 4 03/13/22 11:35 Results & Data ([facility]) Current Inpatient Medications Current Inpatient Medications: Current Inpatient Medications Acetaminophen (Acetaminophen 325 Mg Tab) 650 mg PO Q4H PRN PRN Reason: Moderate Pain Stop: 04/03/22 22:13 Last Admin: 03/15/22 01:25 Dose: 650 mg Benztropine Mesylate (Benztropine Mesylate 0.5 Mg Tab) 0.5 mg PO Q8 PRN PRN Reason: dystonia/thick tongue Stop: 04/09/22 14:29 Last Admin: 03/13/22 11:54 Dose: 0.5 mg Benztropine Mesylate (Benztropine Mesylate 0.5 Mg Tab) 0.5 mg PO BID [facility] Stop: 04/17/22 20:59 Cephalexin HCl (Cephalexin 500 Mg Cap) 1,000 mg PO QID [facility]; Protocol Stop: 03/28/22 16:59 Last Admin: 03/18/22 12:40 Dose: 1,000 mg Enoxaparin Sodium (Enoxaparin Inj 40 Mg/0.4 Ml Syr) 40 mg SQ QAM [facility] Stop: 04/07/22 08:59 Last Admin: 03/18/22 09:32 Dose: Not Given Pantoprazole Sodium 40 mg/ (Syringe) 10 mls @ 5 mls/min IV DAILY@1100 [facility] Stop: 04/05/22 10:59 Last Admin: 03/18/22 12:40 Dose: Not Given Magnesium Oxide (Magnesium Oxide 400 Mg Tab) 400 mg PO BID [facility] Stop: 04/09/22 13:44 Last Admin: 03/18/22 09:32 Dose: Not Given Olanzapine (Olanzapine 10 Mg/2.1 Ml Sdv) 2.5 mg IM Q6H PRN PRN Reason: Anxiety/Agitation Stop: 04/04/22 15:33 Last Admin: 03/16/22 18:10 Dose: 2.5 mg Olanzapine (Olanzapine Zydis 5 Mg Orally Dis. Tab) 2.5 mg PO Q8 PRN PRN Reason: Agitation Stop: 04/17/22 13:59 Ondansetron HCl (Ondansetron Inj 2 Mg/Ml 2 Ml Vial) 4 mg IV Q4H PRN PRN Reason: Nausea And Vomiting Stop: 04/03/22 22:13 Ondansetron HCl (Ondansetron 4 Mg Od Tab) 4 mg PO Q6H PRN PRN Reason: Nausea Stop: 04/08/22 12:05 Pantoprazole Sodium (Pantoprazole 40 Mg Tab) 40 mg PO DAILY [facility] Stop: 04/04/22 08:59 Last Admin: 03/06/22 10:54 Dose: Not Given Risperidone (Risperidone Odt 1mg) 2 mg PO HS [facility] Stop: 04/13/22 20:59 Last Admin: 03/17/22 22:40 Dose: 2 mg Risperidone (Risperidone Odt 1mg) 1 mg PO QD@08 [facility] Stop: 04/18/22 07:59 Risperidone (Risperidone Odt 1mg) 1 mg PO DAILY [facility] Stop: 04/18/22 11:59 (1) Altered mental status Altered mental status type: unspecified Qualified Code(s): R41.82 - Altered mental status, unspecified
--- NOTE | 2022-03-18 17:01 | Hospitalist Progress Note ---
Date of Service March 18, 2022 Assessment & Plan (1) Gram-positive cocci bacteremia: Plan 71 yo male with a history of psychosis (?bipolar) from [facility] who had gone missing. He was admitted to medicine 03/04/22 for rhabdo after [place]. He is being managed for the following: MSSA bacteremia Blood clx 03/06 with Staph aureus, no MRSA. Repeat Blood Cx 03/08/22 remains negative at this time ID evaluation noted. ID had recommended ancef which is ideal. Patient was pulling lines and has been missing antibiotics, per prior attending's d/w pt's who wanted PO atb despite it not being standard of care and expressed understanding of risks a/w it, pt was started on keflex QID w/ ID recs to complete atb Rx. TTE equivocal, KATELYN ruled out any vegetations. c/w Keflex for 2wks from last negative blood culture, used iv rocephin x 1 dose on 03/16 for missed doses of PO atb. Aspiration pneumonia: CXR 03/06/22 showed multifocal PNA, likely aspiration Pneumonitis/Pneumonia. Treated Currently on room air Aspiration precautions Schizophrenia: Altered mental status: CT of the brain is negative for any acute findings UDS negative, lyme and other tick borne disease negative Patient has delirious episodes complicating care on the background of his schizophrenia Continue 1 : 1 for patient's safety, Pt doesn't have decision making capacity to leave AMA d/t acute delirium Psych discontinued ativan and increased risperidone to 2 mg BID with splitting of AM dose; Benztropine added 03/18. zyprexa 2.5mg im for behavioral emergency. /CM to explore dispo options from home health aides to placement Rhabdomyolysis: s/p ivf, resolved. Transaminitis/elevated bilirubin: normalized. Charles Esophagus: c/w PPI DVT ppx: lovenox Dispo: is making decisions for patient. Plan to dc once ok with psych and once his regular meds intake are ensured. sister Pretty [phone] 's no [phone] Admission and Anticipated Discharge Date Admission Date: March 04, 2022 Subjective Patient seen and examined at bedside for follow-up of MSSA bacteremia, aspiration pneumonia and delirium/schizophrenia/altered mental status. Patient was sitting up in chair, denying to take his breakfast and am meds, on room air, NAD, was not agitated overnight per RN, later on took his meds when i talked with him, denies headache/dizziness/chest pain/palpitations/other review of symptoms. Physical Exam Physical Exam: GENERAL: Alert and awake. NAD, on RA. Pt denied exam. No in resp distress, BLE doesn't appear swollen' NECK: No JVD, no neck masses apparent. CENTRAL NERVOUS SYSTEM: No facial droop. Speech is clear. Moves extremities. Atraumatic head, sitting up in chair.
[2022-03-18] MEDS: BENZTROPINE MESYLATE 0.5 MG TAB PO SCH (22:02)
[2022-03-19] MEDS: MAGNESIUM OXIDE 400 MG TAB PO SCH ×2 (07:48→22:06)
[2022-03-19] MEDS: cephALEXin 500 MG CAP PO SCH ×4 (07:48→22:06)
[2022-03-19] MEDS: BENZTROPINE MESYLATE 0.5 MG TAB PO SCH ×2 (07:48→22:06)
[2022-03-19] MEDS: ENOXAPARIN INJ 40 MG/0.4 ML SYR SQ SCH (07:49)
[2022-03-19 07:59] LABS: Creatinine Clr Calc Pharmacy 59.4 ml/min; Est GFR (African American) 83.3 ml/min; Est GFR (Non-African American) 71.9 ml/min
--- NOTE | 2022-03-19 16:02 | Hospitalist Progress Note ---
Date of Service March 19, 2022 Assessment & Plan (1) Gram-positive cocci bacteremia: Plan 71 yo male with a history of psychosis (?bipolar) from [facility] who had gone missing. He was admitted to medicine 03/04/22 for rhabdo after being found wandering in a swampy area. He is being managed for the following: MSSA bacteremia Blood clx 03/06 with Staph aureus, no MRSA. Repeat Blood Cx 03/08/22 remains negative at this time ID evaluation noted. ID had recommended ancef which is ideal. Patient was pulling lines and has been missing antibiotics, per prior attending's d/w pt's who wanted PO atb despite it not being standard of care and expressed understanding of risks a/w it, pt was started on keflex QID w/ ID recs to complete atb Rx. TTE equivocal, KATELYN ruled out any vegetations. c/w Keflex for 2wks from last negative blood culture, used iv rocephin x 1 dose on 03/16 for missed doses of PO atb. Aspiration pneumonia: CXR 03/06/22 showed multifocal PNA, likely aspiration Pneumonitis/Pneumonia. Treated Currently on room air Aspiration precautions Schizophrenia: Altered mental status: CT of the brain is negative for any acute findings UDS negative, lyme and other tick borne disease negative Patient has delirious episodes complicating care on the background of his schizophrenia Continue 1 : 1 for patient's safety, Pt doesn't have decision making capacity to leave AMA d/t acute delirium Psych discontinued ativan and increased risperidone to 2 mg BID with splitting of AM dose; Benztropine added 03/18. zyprexa 2.5mg im for behavioral emergency. /CM to explore dispo options from home health aides to placement Rhabdomyolysis: s/p ivf, resolved. Transaminitis/elevated bilirubin: normalized. Charles Esophagus: c/w PPI DVT ppx: lovenox Dispo: is making decisions for patient. Plan to dc once ok with psych and once his regular meds intake are ensured. sister Pretty [phone] 's no [phone] Admission and Anticipated Discharge Date Admission Date: March 04, 2022 Subjective Patient seen and examined at bedside for follow-up of MSSA bacteremia, aspiration pneumonia and delirium/schizophrenia/altered mental status. Patient was sitting up in chair, took his meds and ate breakfast/was calm overnight and in am per RN, on room air, NAD, denies headache/dizziness/chest pain/palpitations/other review of symptoms. Physical Exam Physical Exam: GENERAL: Alert and awake. NAD, on RA. HEENT: No pallor, no icterus. Pupils equal, round and reactive to light. Oral mucosa moist. NECK: No JVD, no neck masses. HEART: S1 and S2 heard. Regular rate and rhythm. No murmur, no gallop. RESPIRATORY SYSTEM: Normal AP diameter. No accessory muscle use. No wheezing, no crackles. ABDOMEN: Soft, bowel sounds present, nontender, no distention. CENTRAL NERVOUS SYSTEM: No facial droop. Speech is clear. Obeys simple commands. Moves extremities. EXTREMITIES: No edema, no erythema seen. Results & Data Results & Data ([facility]) Vital Signs (Past 12 Hours) Vital Signs Temp Resp BP O2 Del Method 03/19/22 07:25 36.3 C L 16 102/60 Room Air
[2022-03-20] MEDS: cephALEXin 500 MG CAP PO SCH ×4 (10:52→20:29)
[2022-03-20] MEDS: BENZTROPINE MESYLATE 0.5 MG TAB PO SCH (11:15)
[2022-03-20] MEDS: PANTOprazole 40 MG TAB PO SCH (11:16)
[2022-03-20] MEDS: ENOXAPARIN INJ 40 MG/0.4 ML SYR SQ SCH (11:16)
[2022-03-20] MEDS: MAGNESIUM OXIDE 400 MG TAB PO SCH ×2 (11:16→20:29)
--- NOTE | 2022-03-20 12:37 | Psychiatric Progress Note ---
Date of Service March 20, 2022 Impression / Recommendations Impression 71 yo male with non-adherence to psychiatric medication since October or November of 2021 for history of schizophrenia with acute AMS with rhabdo admitted medically and found to have acute sepsis with ongoing treatment for this but continued delirium. He has been cooperative with restart and dose titration of Risperdal, having breakthrough agitation, mainly around management of IV site, staying in room, etc. Last IM on 03/16. His presentation waxes and wanes throughout day/shift. (1) Altered mental status: (2) Delirium: (3) Schizophrenia: Plan will d/c Cogentin as has been refusing and EPS appears much improved today compared to last contact--continue Split dosing of Risperdal. I'd prefer BID dosing but worry if I shift midday dose to hs he will refuse reviewed behavioral charting/plan to improve med compliance, particualrly with PO antibiotic. Interval History Identifying Information 71 yo male with a history of schizophrenia, from [facility] who had gone missing. He was admitted to medicine 03/04/22 for rhabdo after being found wandering in a swampy area. Psychiatry was consulted for recommendations. Chief Complaint "It's too many pills." Review of Systems Notes he is not able to answer Subjective Subjective Patient was seen & assessed and interval progress reviewed with nursing, patient was in doorway and requiring more staff redirection this am as suspicious toward staff/ Refused his hs Risperdal again last pm. Cannot seem to understand med compliance and impact on ability to discharge home. was contacted to assist but apparently did not believe it was here. Procedures Performed Operation Date: 03/13/22 12:00 Actual Procedures p Echo Transesophageal - Omer Mitchell, Physical Exam Psychiatric Orientation: alert; + not oriented to time Apperance: appropriately groomed Eye Contact: + poor eye contact Motor Behavior: n akathisia Speech: + abnormal rate/rhythm/volume of speech (very nonspontaneous) Mood: + anxious mood Thought Process: + concrete thought process Thought Content: + paranoid and + delusions Hallucinations: no auditory hallucinations Vital Signs (Past 24 Hours) Last Vital Signs Temp 36.6 C 03/19/22 15:00 Pulse 82 03/19/22 15:00 Resp 18 03/19/22 15:00 BP 112/68 03/19/22 15:00 Pulse Ox 98 03/19/22 15:00 O2 Del Method 03/19/22 15:00 O2 Flow Rate 4 03/13/22 11:35 Results & Data ([facility]) Current Inpatient Medications Current Inpatient Medications: Current Inpatient Medications Acetaminophen (Acetaminophen 325 Mg Tab) 650 mg PO Q4H PRN PRN Reason: Moderate Pain Stop: 04/03/22 22:13 Last Admin: 03/15/22 01:25 Dose: 650 mg Benztropine Mesylate (Benztropine Mesylate 0.5 Mg Tab) 0.5 mg PO Q8 PRN PRN Reason: dystonia/thick tongue Stop: 04/09/22 14:29 Last Admin: 03/13/22 11:54 Dose: 0.5 mg Cephalexin HCl (Cephalexin 500 Mg Cap) 1,000 mg PO QID [facility]; Protocol Stop: 03/28/22 16:59 Last Admin: 03/20/22 10:52 Dose: 1,000 mg Enoxaparin Sodium (Enoxaparin Inj 40 Mg/0.4 Ml Syr) 40 mg SQ QAM [facility] Stop: 04/07/22 08:59 Last Admin: 03/20/22 11:16 Dose: Not Given Magnesium Oxide (Magnesium Oxide 400 Mg Tab) 400 mg PO BID [facility] Stop: 04/09/22 13:44 Last Admin: 03/20/22 11:16 Dose: Not Given Olanzapine (Olanzapine 10 Mg/2.1 Ml Sdv) 2.5 mg IM Q6H PRN PRN Reason: Anxiety/Agitation Stop: 04/04/22 15:33 Last Admin: 03/16/22 18:10 Dose: 2.5 mg Olanzapine (Olanzapine Zydis 5 Mg Orally Dis. Tab) 2.5 mg PO Q8 PRN PRN Reason: Agitation Stop: 04/17/22 13:59 Ondansetron HCl (Ondansetron Inj 2 Mg/Ml 2 Ml Vial) 4 mg IV Q4H PRN PRN Reason: Nausea And Vomiting Stop: 04/03/22 22:13 Ondansetron HCl (Ondansetron 4 Mg Od Tab) 4 mg PO Q6H PRN PRN Reason: Nausea Stop: 04/08/22 12:05 Pantoprazole Sodium (Pantoprazole 40 Mg Tab) 40 mg PO QAM [facility] Stop: 04/19/22 08:59 Last Admin: 03/20/22 11:16 Dose: Not Given Risperidone (Risperidone Odt 1mg) 2 mg PO HS [facility] Stop: 04/13/22 20:59 Last Admin: 03/19/22 22:06 Dose: Not Given Risperidone (Risperidone Odt 1mg) 1 mg PO QD@08 [facility] Stop: 04/18/22 07:59 Last Admin: 03/20/22 09:21 Dose: 1 mg Risperidone (Risperidone Odt 1mg) 1 mg PO DAILY@1200 [facility] Stop: 04/18/22 11:59 Last Admin: 03/19/22 12:02 Dose: 1 mg (1) Altered mental status Altered mental status type: unspecified Qualified Code(s): R41.82 - Altered mental status, unspecified
--- NOTE | 2022-03-20 18:30 | Hospitalist Progress Note ---
Date of Service March 20, 2022 Assessment & Plan (1) Gram-positive cocci bacteremia: Plan 71 yo male with a history of psychosis (?bipolar) from [facility] who had gone missing. He was admitted to medicine 03/04/22 for rhabdo after being found wandering in a swampy area. He is being managed for the following: MSSA bacteremia Blood clx 03/06 with Staph aureus, no MRSA. Repeat Blood Cx 03/08/22 remains negative at this time ID evaluation noted. ID had recommended ancef which is ideal. Patient was pulling lines and has been missing antibiotics, per prior attending's d/w pt's who wanted PO atb despite it not being standard of care and expressed understanding of risks a/w it, pt was started on keflex QID w/ ID recs to complete atb Rx. TTE equivocal, KATELYN ruled out any vegetations. c/w Keflex for 2wks from last negative blood culture, used iv rocephin x 1 dose on 03/16 for missed doses of PO atb. Pt still denying PO meds occasionally. Aspiration pneumonia: CXR 03/06/22 showed multifocal PNA, likely aspiration Pneumonitis/Pneumonia. Treated Currently on room air Aspiration precautions Schizophrenia: Altered mental status: CT of the brain is negative for any acute findings UDS negative, lyme and other tick borne disease negative Patient has delirious episodes complicating care on the background of his schizophrenia Continue 1 : 1 for patient's safety, Pt doesn't have decision making capacity to leave AMA d/t acute delirium Psych discontinued ativan and increased risperidone to 2 mg BID with splitting of AM dose; Benztropine DC'd. zyprexa 2.5mg im for behavioral emergency. /CM to explore dispo options from home health aides to placement Rhabdomyolysis: s/p ivf, resolved. Transaminitis/elevated bilirubin: normalized. Charles Esophagus: c/w PPI DVT ppx: lovenox Dispo: is making decisions for patient. Plan to dc once ok with psych and once his regular meds intake are ensured. sister Pretty [phone] 's no [phone] Admission and Anticipated Discharge Date Admission Date: March 04, 2022 Subjective Patient seen and examined at bedside for follow-up of MSSA bacteremia, aspiration pneumonia and delirium/schizophrenia/altered mental status. Patient was standing at the doorway with RN and aids trying to convince him to go back to his room, denied breakfast and am meds per RN, was agitated overnight per RN, on room air, NAD, denies headache/dizziness/chest pain/palpitations/other review of symptoms. Physical Exam Physical Exam: GENERAL: Alert and awake. NAD, on RA. Pt denied exam. No in resp distress, BLE doesn't appear swollen NECK: No JVD, no neck masses apparent. CENTRAL NERVOUS SYSTEM: No facial droop. Speech is clear. Moves extremities. Atraumatic head, standing up at doorway.
[2022-03-21 07:14] VITALS: BP 130/72; PULSE 76; TEMP 97.7; O2SAT 99
[2022-03-21] MEDS: cephALEXin 500 MG CAP PO SCH ×4 (08:35→22:36)
[2022-03-21] MEDS: PANTOprazole 40 MG TAB PO SCH (08:36)
[2022-03-21] MEDS: MAGNESIUM OXIDE 400 MG TAB PO SCH ×2 (08:37→22:35)
[2022-03-21] MEDS: ENOXAPARIN INJ 40 MG/0.4 ML SYR SQ SCH (08:37)
--- NOTE | 2022-03-21 14:29 | Hospitalist Progress Note ---
Date of Service March 21, 2022 Assessment & Plan (1) Gram-positive cocci bacteremia: Plan 71 yo male with a history of psychosis (?bipolar) from [facility] who had gone missing. He was admitted to medicine 03/04/22 for rhabdo after being found wandering in a swampy area. He is being managed for the following: MSSA bacteremia Blood clx 03/06 with Staph aureus, no MRSA. Repeat Blood Cx 03/08/22 remains negative at this time ID evaluation noted. ID had recommended ancef which is ideal. Patient was pulling lines and has been missing antibiotics, per prior attending's d/w pt's who wanted PO atb despite it not being standard of care and expressed understanding of risks a/w it, pt was started on keflex QID w/ ID recs to complete atb Rx. TTE equivocal, KATELYN ruled out any vegetations. c/w Keflex for 2wks from last negative blood culture, used iv rocephin x 1 dose on 03/16 for missed doses of PO atb. Pt taking his meds more consistently. Aspiration pneumonia: CXR 03/06/22 showed multifocal PNA, likely aspiration Pneumonitis/Pneumonia. Treated Currently on room air Aspiration precautions Schizophrenia: Altered mental status: CT of the brain is negative for any acute findings UDS negative, lyme and other tick borne disease negative Patient has delirious episodes complicating care on the background of his schizophrenia Continue 1 : 1 for patient's safety, Pt doesn't have decision making capacity to leave AMA d/t acute delirium Psych discontinued ativan and increased risperidone to 2 mg BID with splitting of AM dose; zyprexa 2.5mg im for behavioral emergency. /CM to explore dispo options from home health aides to placement Rhabdomyolysis: s/p ivf, resolved. Transaminitis/elevated bilirubin: normalized. Charles Esophagus: c/w PPI DVT ppx: lovenox Dispo: is making decisions for patient. Plan to dc once ok with psych and once his regular meds intake are ensured. sister Pretty [phone] 's no [phone] Admission and Anticipated Discharge Date Admission Date: March 04, 2022 Subjective Patient seen and examined at bedside for follow-up of MSSA bacteremia, aspiration pneumonia and delirium/schizophrenia/altered mental status. Patient was sitting up in chair, on room air, NAD, per RN no agitation overnight and ate his breakfast and is taking his medications. Patient denies any headache/dizziness/chest pain/palpitations/other review of symptoms. Physical Exam Physical Exam: GENERAL: Alert and awake. NAD, on RA. HEENT: No pallor, no icterus. Pupils equal, round and reactive to light. Oral mucosa moist. NECK: No JVD, no neck masses. HEART: S1 and S2 heard. Regular rate and rhythm. No murmur, no gallop. RESPIRATORY SYSTEM: Normal AP diameter. No accessory muscle use. No wheezing, no crackles. ABDOMEN: Soft, bowel sounds present, nontender, no distention. CENTRAL NERVOUS SYSTEM: No facial droop. Speech is clear. Obeys simple commands. Moves extremities. EXTREMITIES: No edema, no erythema seen. Results & Data Results & Data ([facility]) Vital Signs (Past 12 Hours) Vital Signs Temp Pulse Resp BP Pulse Ox O2 Del Method 03/21/22 07:13 36.5 C 76 16 130/72 99 Room Air
--- NOTE | 2022-03-22 07:20 | Hospitalist Progress Note ---
Date of Service March 22, 2022 Assessment & Plan (1) Gram-positive cocci bacteremia: Plan 71 yo M with a history of psychosis (?bipolar) from [facility] who had gone missing. He was admitted to medicine 03/04/22 for rhabdo after being found wandering in a swampy area. He is being managed for the following: MSSA bacteremia Blood clx 03/06 with Staph aureus, no MRSA. Repeat Blood Cx 03/08/22 NEGATIVE ID evaluation noted. ID had recommended ancef which is ideal. Patient was pulling lines and has been missing antibiotics, per prior attending's d/w pt's who wanted PO atb despite it not being standard of care and expressed understanding of risks a/w it, pt was started on keflex QID w/ ID recs to complete atb Rx. TTE equivocal, KATELYN ruled out any vegetations. c/w Keflex for 2wks from last negative blood culture (03/08/22), used iv rocephin x 1 dose on 03/16 for missed doses of PO atb. Pt taking his meds more consistently. 03/22 - Patient missed his p.o. antibiotics last night, as well as this morning. Patient has been pacing/anxious. Discussed this with psychiatry, they plan to 302 the patient as he is not stable to be discharged home d/t uncontrolled psychiatric illness. Given his missing antibiotics, and not willingness to have IV line, discussed IM option. Patient received IM Rocephin today without any issues or complains. Plan to give 1 more dose tomorrow. This will conclude 2-week of antibiotic treatment since negative blood culture. Patient is medically stable, to be discharged to psychiatric care, that he needs. Aspiration pneumonia: CXR 03/06/22 showed multifocal PNA, likely aspiration Pneumonitis/Pneumonia. Treated Currently on room air Aspiration precautions Schizophrenia: Altered mental status: CT of the brain is negative for any acute findings UDS negative, lyme and other tick borne disease negative Patient has delirious episodes complicating care on the background of his schizophrenia Continue 1 : 1 for patient's safety, Pt doesn't have decision making capacity to leave AMA d/t acute delirium Psych discontinued ativan and increased risperidone to 2 mg BID with splitting of AM dose; zyprexa 2.5mg im for behavioral emergency. /CM to explore dispo options from home health aides to placement 03/22 - Patient received p.o. Ativan today, and afterwards was cooperative with his care. Further treatment of schizophrenia per psychiatry. Medically patient is stable for discharge to psychiatric care. Rhabdomyolysis: s/p ivf, resolved. Transaminitis/elevated bilirubin: normalized. Charles Esophagus: c/w PPI DVT ppx: lovenox Dispo: is making decisions for patient. Plan to dc to psychiatry care. sister Pretty [phone] 's no [phone] Admission and Anticipated Discharge Date Admission Date: March 04, 2022 Subjective Patient seen and examined at bedside for follow-up of MSSA bacteremia, aspiration pneumonia and delirium/schizophrenia/altered mental status. Earlier this morning, patient has been pacing/ anxious, refusing meds. Discussed this with nursing staff, as well as psychiatry. Patient received p.o. Ativan.However he refused his a.m. medications, including his morning antibiotics. Reviewed records and patient also did not take antibiotics last night.Seems like they upset his stomach. Patient was not agreeable to IV antibiotics previously. Discussed with the pharmacy, and psychiatry, patient only needs about 2 more days of antibiotics. Given that patient is pacing, and not cooperative with medications, plan for psychiatry is to 302 the patient. He can get IM antibiotics. Saw the patient after he received p.o. Ativan. Sitting up in the chair, eating dinner, calm and cooperative. Discussed his GI upset from p.o. antibiotics. Also discussed that he only needs a few more days of antibiotics.He is asking about discharge, and I discussed with him that psychiatry would need to clear him as well, given that he was brought in to the hospital by police. He seems to be in understanding. Denies any fevers, chills, chest pain, shortness of breath. Also denies any dizziness or lightheadedness.Enjoying dinner, no complaints. Update: Updated by RN, that patient received IM antibiotics without any issues or complaints Discussed with psychiatry, that I would recommend 1 more dose of IM antibiotics tomorrow, patient is cleared medically, for further psychiatric treatment that he needs. Review of Systems Review of Systems: All systems reviewed & are unremarkable except as noted in Subjective Physical Exam Physical Exam: GENERAL: Thin male, sitting up in chair, in no acute distress. on RA. Eating dinner. HEENT: NC/AT. EOMI. PERRL. Oral mucosa moist. NECK: No JVD, no neck masses. HEART: S1 and S2 heard. Regular rate and rhythm. No murmur, no gallop. RESPIRATORY:No accessory muscle use. CTAB, No wheezing, no crackles. ABDOMEN: Soft, bowel sounds present, nontender, no distention. NEURO: Awake and alert, answering questions appropriately. No facial droop. Speech is clear. Obeys simple commands. Moves extremities. EXTREMITIES: No edema, no erythema seen. Results & Data Results & Data ([facility]) Medications Administered Current Inpatient Medications Acetaminophen (Acetaminophen 325 Mg Tab) 650 mg PO Q4H PRN PRN Reason: Moderate Pain Stop: 04/03/22 22:13 Last Admin: 03/15/22 01:25 Dose: 650 mg Benztropine Mesylate (Benztropine Mesylate 0.5 Mg Tab) 0.5 mg PO Q8 PRN PRN Reason: dystonia/thick tongue Stop: 04/09/22 14:29 Last Admin: 03/13/22 11:54 Dose: 0.5 mg Cephalexin HCl (Cephalexin 500 Mg Cap) 1,000 mg PO QID [facility]; Protocol Stop: 03/28/22 16:59 Last Admin: 03/21/22 22:36 Dose: Not Given Enoxaparin Sodium (Enoxaparin Inj 40 Mg/0.4 Ml Syr) 40 mg SQ QAM [facility] Stop: 04/07/22 08:59 Last Admin: 03/21/22 08:37 Dose: 40 mg Magnesium Oxide (Magnesium Oxide 400 Mg Tab) 400 mg PO BID [facility] Stop: 04/09/22 13:44 Last Admin: 03/21/22 22:35 Dose: Not Given Olanzapine (Olanzapine 10 Mg/2.1 Ml Sdv) 2.5 mg IM Q6H PRN PRN Reason: Anxiety/Agitation Stop: 04/04/22 15:33 Last Admin: 03/16/22 18:10 Dose: 2.5 mg Olanzapine (Olanzapine Zydis 5 Mg Orally Dis. Tab) 2.5 mg PO Q8 PRN PRN Reason: Agitation Stop: 04/17/22 13:59 Ondansetron HCl (Ondansetron Inj 2 Mg/Ml 2 Ml Vial) 4 mg IV Q4H PRN PRN Reason: Nausea And Vomiting Stop: 04/03/22 22:13 Ondansetron HCl (Ondansetron 4 Mg Od Tab) 4 mg PO Q6H PRN PRN Reason: Nausea Stop: 04/08/22 12:05 Pantoprazole Sodium (Pantoprazole 40 Mg Tab) 40 mg PO QAM [facility] Stop: 04/19/22 08:59 Last Admin: 03/21/22 08:36 Dose: 40 mg Risperidone (Risperidone Odt 1mg) 2 mg PO HS [facility] Stop: 04/13/22 20:59 Last Admin: 03/21/22 22:36 Dose: Not Given Risperidone (Risperidone Odt 1mg) 1 mg PO QD@08 [facility] Stop: 04/18/22 07:59 Last Admin: 03/21/22 08:35 Dose: 1 mg Risperidone (Risperidone Odt 1mg) 1 mg PO DAILY@1200 [facility] Stop: 04/18/22 11:59 Last Admin: 03/21/22 13:06 Dose: 1 mg
[2022-03-22] MEDS ORDERED: LORazepam 1 MG TAB PO ONE ×2 (09:15→13:45)
[2022-03-22] MEDS: ENOXAPARIN INJ 40 MG/0.4 ML SYR SQ SCH (10:01)
[2022-03-22] MEDS: cephALEXin 500 MG CAP PO SCH ×2 (10:01→13:38)
[2022-03-22] MEDS: PANTOprazole 40 MG TAB PO SCH (10:02)
[2022-03-22] MEDS: MAGNESIUM OXIDE 400 MG TAB PO SCH (10:02)
[2022-03-22] MEDS: cefTRIAXone SODIUM 350 MG/ML IM IM SCH ×2 (18:01→18:02)
--- NOTE | 2022-03-22 19:56 | Discharge Summary ---
Date of Service March 22, 2022 Admission HPI Per Admitting Provider This is a 71 yo M with PMhx of bipolar disorder, Barrets esophagus, GERD. He presents today under a 302 by police escort where he was found in a swamp[place] like area near [place]. After being picked up by police he was aggressive slightly and was kicking at the police window. After being brought here he was placed on a one to one observation. He states that "I did something stupid and was trying to get away from scammers". He knows that he was in a swamp, and he is completely alert awake and oriented x3. He states that he was attempting to get away from scammers and fell into the swamp like area. He reports being there at least overnight and for the majority of the day today. During my evaluation the patient states that he feels very cold, and is shivering. He states he has not eaten since sometime yesterday. Reports lower back pain with being set up to listen to his lungs, but otherwise is able to move all of his extremities without much difficulty. Denies abdominal pain, nausea, vomiting changes in his bowels or urinary habits. Patient is from home and lives with his , will attempt to call her. Patient notes that he has been off of Risperdal for over 1 month timeframe and takes this for "his thoughts". Admission Exam Per Admitting Provider General: awake, alert, no apparent distress, + thin and shivering Head: Normocephalic, atraumatic ENT: PERRL, EOMI, no pharyngeal exudate, mucous membranes moist Chest: Clear to auscultation, on room air, no adventitious breath sounds Cardiac: Regular rate and rhythm, no murmur, no JVD, normal peripheral pulses, good capillary refill Abdominal: NABS x 4 quadrants, soft, nondistended, nontender to palpation, no rebound or guarding Extremities: Normal inspection, no peripheral edema or erythema, calfs nontender to palpation Psych: + paranoid affect with thinking scammers were coming after him, moderately forthcoming with information, denies suicidal and homicidal ideation Neuro: AAO x 3, strength intact bilaterally and rated 5/5, no motor deficits, speech is clear, no peripheral sensory deficits Principal Diagnosis MSSA bacteremia Rhabdomyolysis Aspiration pneumonia Schizophrenia, altered mental status Medication noncompliance Discharge Exam GENERAL: Thin male, sitting up in chair, in no acute distress. on RA. Eating dinner. HEENT: NC/AT. EOMI. PERRL. Oral mucosa moist. NECK: No JVD, no neck masses. HEART: S1 and S2 heard. Regular rate and rhythm. No murmur, no gallop. RESPIRATORY:No accessory muscle use. CTAB, No wheezing, no crackles. ABDOMEN: Soft, bowel sounds present, nontender, no distention. NEURO: Awake and alert, answering questions appropriately. No facial droop. Speech is clear. Obeys simple commands. Moves extremities. EXTREMITIES: No edema, no erythema seen. Discharge Data Allergies Allergy/AdvReac Type Severity Reaction Status Date / Time No Known Allergies Allergy Verified 03/04/22 22:18 Consultations 03/04/22 18:26 ED Decision to Admit Stat 03/04/22 22:14 Consult Psychiatry Routine 03/07/22 15:59 Consult Infectious Diseases Routine 03/10/22 12:01 Consult Cardiology Routine 03/12/22 16:17 Consult Anesthesiology Routine Procedures Performed Operation Date: 03/13/22 12:00 Actual Procedures p Echo Transesophageal - Omer Mitchell DO Ordered Studies 03/04/22 16:11 CT head/brain wo con Stat FINDINGS: No acute intracranial hemorrhage, midline shift, intracranial mass, hydrocephalus, territorial ischemia or abnormal extra-axial collection. Mild involutional changes. The calvarium is intact. The paranasal sinuses, mastoid air cells, and middle ear cavities are clear. IMPRESSION: No acute intracranial abnormality. Hospital Course (1) Gram-positive cocci bacteremia: Plan 71 yo M with a history of psychosis from [facility] who had gone missing. He was admitted to medicine 03/04/22 for rhabdo after being found wandering in a swampy area. He is being managed for the following: MSSA bacteremia Blood clx 03/06 with Staph aureus, no MRSA. Repeat Blood Cx 03/08/22 NEGATIVE ID evaluation noted. ID had recommended ancef which is ideal. Patient was pulling lines and has been missing antibiotics, per prior attending's (Dr. Hanks) discussion with pt's who wanted PO antibiotics despite it not being standard of care and expressed understanding of risks a/w it, pt was started on keflex QID w/ ID recs to complete atb course. TTE equivocal, KATELYN ruled out any vegetations. Per prior attendings (Dr. Hanks, Dr. Hartman)- c/w Keflex for 2wks from last negative blood culture (03/08/22), used iv rocephin x 1 dose on 03/16 for missed doses of PO atb. Pt taking his meds more consistently. 03/22 - Patient missed his p.o. antibiotics last night, as well as this morning. Patient has been pacing/anxious. Discussed this with psychiatry, they plan to 302 the patient as he is not stable to be discharged home d/t uncontrolled psychiatric illness. Given his missing antibiotics, and not willingness to have IV line, discussed IM option. Patient received IM Rocephin today without any issues or complains. Plan to give 1 more dose tomorrow. This will conclude 2-week of antibiotic treatment since negative blood culture. Patient is medically stable, to be discharged to psychiatric care, that he needs. Aspiration pneumonia: CXR 03/06/22 showed multifocal PNA, likely aspiration Pneumonitis/Pneumonia. Treated Currently on room air Aspiration precautions Schizophrenia: Altered mental status: CT of the brain is negative for any acute findings UDS negative, lyme and other tick borne disease negative Patient has delirious episodes complicating care on the background of his schizophrenia Continue 1 : 1 for patient's safety, Pt doesn't have decision making capacity to leave AMA d/t acute delirium Psych discontinued ativan and increased risperidone to 2 mg BID with splitting of AM dose; zyprexa 2.5mg im for behavioral emergency. /CM to explore dispo options from home health aides to placement 03/22 - Patient received p.o. Ativan today, and afterwards was cooperative with his care. Further treatment of schizophrenia per psychiatry. Medically patient is stable for discharge to psychiatric care. Rhabdomyolysis: s/p ivf, resolved. Transaminitis/elevated bilirubin: normalized. Charles Esophagus: c/w PPI Dispo: is making decisions for patient. Plan to dc to psychiatry care. sister Pretty [phone] 's no [phone] Total Time Total Time Spent Total Time Spent (In Minutes): 40 Discharge Plan Discharge Items Patient Disposition: Transfer Behavioral Health Fac Reason For Visit: ELEVATED LFT'S Discharge Diagnosis: MSSA bacteremia Rhabdomyolysis Aspiration pneumonia Schizophrenia, altered mental status Medication noncompliance Activity: Per Instructions section Non-emergency contact: Primary Care Provider and Psychiatrist Call non-emergency contact if: you have any medication questions and your symptoms worsen Follow-up/Referrals: [Other] - 04/21/22 8:00 am (Appointment on April 21 @ 8:00AM with MISTI Julien) PCP,NO [Primary Care Provider] - Diet: Regular Addtl Attending Provider Instructions: Recommend 1 more dose of IM ceftriaxone tomorrow to finish antibiotic treatment for MSSA bacteremia. Continue pantoprazole for Charles's esophagus. Psychiatric medications, per psychiatry service. Pending Studies at Discharge: No Stand-Alone Forms: My [employer] Skilled Items Lines: None Urinary Catheter: No Medications and DC Order Prescriptions: Continued risperidone 2 mg tablet 2 mg PO QPM pantoprazole 40 mg tablet,delayed release (DR/EC) 40 mg PO DAILY Discharge Orders: Discharge Order (Routine); Ordered 03/22/22 Ordered By: Allen Wilson Admission Data Admit Date/Time: 03/04/22 18:56 Attending Provider: Allen Wilson Admit Provider: Sharron Mckenzie Primary Care Provider: PCP,NO Other Providers: Sharron Mckenzie ; Penny Mcguire ; Carol Roche ; Marcelle Ramírez ; Jacinda Gomez ; Celso Edmond ; Karoline Damian ; Bright Nix I. ; Gautam Webster II ; Alma Hunt ; Reece Raymundo ; Jose Acevedo ; Isreal Tubbs ; Sidney Quinonez ; Nikos Mustafa ; Emily Hartman
== END 2022-03-22 20:00 | DRG 871 ==
LOC: ED 16:10 → SUATTDRO 18:56 → 3E 18:56

== ENCOUNTER 2022-03-22 20:38 | Inpatient (IN) ==
[2022-03-22] MEDS ORDERED: hydrOXYzine HCl 25 MG TAB PO PRN (20:39)
[2022-03-22] MEDS ORDERED: MAGNESIUM HYDROXIDE SUSP 30 ML UDC PO PRN (20:39)
[2022-03-22] MEDS ORDERED: SODIUM CHLORIDE 0.65% NA SOLN 45 ML (OCEAN) PRN (20:39)
[2022-03-22] MEDS ORDERED: ACETAMINOPHEN 325 MG TAB PO PRN (20:39)
[2022-03-22] MEDS ORDERED: BISMUTH SUBSALICYLATE LIQD 236 ML PO PRN (20:39)
[2022-03-22] MEDS ORDERED: ALUMINUM/MAGNESIUM SUSP 30 ML UDC PO PRN (20:39)
[2022-03-22] MEDS ORDERED: LORazepam 1 MG TAB PO PRN (20:43)
[2022-03-22] MEDS ORDERED: OLANZapine 10 MG/2.1 ML SDV IM PRN (20:44)
[2022-03-22] MEDS ORDERED: BENZTROPINE MESYLATE 0.5 MG TAB PO PRN (20:46)
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
[2022-03-22] MEDS ORDERED: Patient's HEIGHT &/or WEIGHT Needed SCH (21:00)
[2022-03-22] MEDS: risperiDONE 2 MG TABLET PO SCH (22:11)
--- NOTE | 2022-03-23 08:41 | Psychiatric Progress Note ---
Date of Service March 23, 2022 Impression / Recommendations Impression Bolivar is a 71 yo male with a history of schizophrenia, stable for >20 years on Risperdal but lapse in treatment, he became increasingly disorganized and wandered into a swampy area believing that he was being scammed. He had acute agitation when police and hospitalists intervened and appeared to have agitated catatonia and/or delirium. He was diagnosed and treated for aspiration pneumonia with septicemia and has been intermittently disruptive on the medical floor due ot his sporadic med compliance and ongoing paranoid delusions. 03/23/22: calmer in therapeutic milieu (1) Schizophrenia: (2) Charles esophagus: (3) Bacteremia: Plan 03/23/22: continue current meds and treatment plan as on unit <24 hrs. neither patient nor his desire last dose of antibiotic and the risks of IV vs PO vs noncompliance were reviewed with them extensively on the med floor by hospitalist service. He is >14 days from positive culture. 03/22/22: The patient was admitted to the [facility] ([facility] health unit) on q15 min checks (behavioral with suicide precautions) for safety. The patient will participate in group, recreational, and milieu therapies and will be offered additional individual and family sessions as clinically appropriate. The patient will require a MNPR due to age/condition and elopement precautions. Prn Ativan 1 mg po q6 for anxiety, Zyprexa IM for more severe agitation. Will address plan for final dose of antibiotics in the am. Continue Risperdal at previously effective dose 1 mg am and 2 mg hs and focus on compliance. Continue proton pump inhibitor. Would suggest transition to Invega for KURTZ when patient is more stable. Inventory Assets Strengths: hx of longtime compliance with medication, transitioned well to the unit Needs: increase insight into condition, support around legal charges. Suicide Risk Level Suicide Risk Level: Low (q15 min observation checks) Risk Factors Assessment Male: Yes : Yes Mental Health Diagnoses: Yes Substance Use Disorders: No Previous Attempt: No Protective Factors Assessment : Yes Supportive Family: Yes Interval History Identifying Information BOLIVAR BATRES is a 71-year-old M who currently lives in [place] with his , has a history of schizophrenia, and was admitted on 03/22/22 20:46 on a 302 involuntary commitment for paranoia, poor med compliance. The patient was admitted from the medical floor where he has been receiving care since 03/04/22. Chief Complaint "I'm just worried about being out of here in time to deal with my bills". Review of Systems Sleep Information Total Hours of Sleep: 4 Subjective Subjective Patient was seen & assessed and interval progress reviewed with nursing and soci al work. med compliant. eating well. wants to attend to his personal hygiene. Attention span short but readily redirectible. Now over 14 days from his negative blood culture. staff confirmed that he will be arrested at discharge, patient unaware at this point. Physical Exam Psychiatric Orientation: alert Apperance: appropriately groomed Eye Contact: + poor eye contact Motor Behavior: + tremor (baseline) Speech: + abnormal rate/rhythm/volume of speech (nonspontaneous) Affect: + anxious affect Mood: + anxious mood; no dysphoric mood Thought Process: + perseveration Thought Content: not paranoid and no delusions Suicidal Thoughts: denies suicidal thoughts Homicidal Thoughts: denies homicidal thoughts Hallucinations: no auditory hallucinations and no visual hallucinations Cognition: language grossly intact; + attention not intact Estimated Intelligence: consistent with education level Insight: + poor insight Judgement: + poor judgement Vital Signs (Past 24 Hours) Last Vital Signs Temp 36.3 C L 03/23/22 06:36 Pulse 89 03/23/22 06:37 Resp 18 03/23/22 06:36 BP 109/67 03/23/22 06:37 O2 Del Method 03/22/22 20:52 Results & Data ([facility]) Current Inpatient Medications Current Inpatient Medications: Current Inpatient Medications Acetaminophen (Acetaminophen 325 Mg Tab) 650 mg PO Q4H PRN PRN Reason: Headache or Minor Fever Stop: 04/21/22 20:38 Al Hydrox/Mg Hydrox/Simethicone (Aluminum/Magnesium Susp 30 Ml Udc) 30 ml PO Q4H PRN PRN Reason: GI Upset Stop: 04/21/22 20:38 Benztropine Mesylate (Benztropine Mesylate 0.5 Mg Tab) 0.5 mg PO Q6 PRN PRN Reason: dystonia Stop: 04/21/22 20:45 Bismuth Subsalicylate (Bismuth Subsalicylate Liqd 236 Ml) 15 ml PO PRN PRN PRN Reason: Loose Stool Stop: 04/21/22 20:38 Hydroxyzine HCl (Hydroxyzine Hcl 25 Mg Tab) 50 mg PO HSZ PRN PRN Reason: Insomnia Stop: 04/21/22 20:38 Lorazepam (Lorazepam 1 Mg Tab) 1 mg PO Q6 PRN PRN Reason: Anxiety Stop: 04/21/22 20:42 Magnesium Hydroxide (Magnesium Hydroxide Susp 30 Ml Udc) 30 ml PO DAILY PRN PRN Reason: Constipation Stop: 04/21/22 20:38 Olanzapine (Olanzapine 10 Mg/2.1 Ml Sdv) 5 mg IM Q8 PRN PRN Reason: Agitation Stop: 04/21/22 21:59 Pantoprazole Sodium (Pantoprazole 40 Mg Tab) 40 mg PO DAILY CIERRA Stop: 04/22/22 08:59 Risperidone (Risperidone 1 Mg Tablet) 1 mg PO QAM CIERRA Stop: 04/22/22 08:59 Risperidone (Risperidone 2 Mg Tablet) 2 mg PO HS CIERRA Stop: 04/21/22 21:59 Last Admin: 03/22/22 22:11 Dose: 2 mg Sodium Chloride (Sodium Chloride 0.65% Na Soln 45 Ml ([place])) 1 - 2 sprays NA PRN PRN PRN Reason: Nasal Dryness/Congestion Stop: 04/21/22 20:38 Post Discharge Appointments Primary Care Physician Name Of Family Doctor: Dr. Hastings PCP ?
[2022-03-23] MEDS: risperiDONE 1 MG TABLET PO SCH (08:58)
[2022-03-23] MEDS: PANTOprazole 40 MG TAB PO SCH (08:58)
[2022-03-23] MEDS: risperiDONE 2 MG TABLET PO SCH (21:12)
[2022-03-24] MEDS: PANTOprazole 40 MG TAB PO SCH (09:26)
[2022-03-24] MEDS: risperiDONE 1 MG TABLET PO SCH (09:26)
--- NOTE | 2022-03-24 11:31 | Psychiatric Progress Note ---
Date of Service March 24, 2022 Impression / Recommendations Impression Bolivar is a 71 yo male with a history of schizophrenia, stable for >20 years on Risperdal but lapse in treatment, he became increasingly disorganized and wandered into a swampy area believing that he was being scammed. He had acute agitation when police and hospitalists intervened and appeared to have agitated catatonia and/or delirium. He was diagnosed and treated for aspiration pneumonia with septicemia and has been intermittently disruptive on the medical floor due ot his sporadic med compliance and ongoing paranoid delusions. 03/24/22: maintaining compliance, eating, taking meds (1) Schizophrenia: (2) Charles esophagus: (3) Bacteremia: Plan 03/24/22: continue curret meds and treatment plan, cannot exclude mouth movements as a withdrawal dyskinesia as was taking 5 mg Risperdal at times plus IM Zyprexa on med floor. Does appear anxiety based at this time. 03/23/22: continue current meds and treatment plan as on unit <24 hrs. neither patient nor his desire last dose of antibiotic and the risks of IV vs PO vs noncompliance were reviewed with them extensively on the med floor by hospitalist service. He is >14 days from positive culture. 03/22/22: The patient was [facility] ([facility]) on q15 min checks (behavioral with suicide precautions) for safety. The patient will participate in group, recreational, and milieu therapies and will be offered additional individual and family sessions as clinically appropriate. The patient will require a MNPR due to age/condition and elopement precautions. Prn Ativan 1 mg po q6 for anxiety, Zyprexa IM for more severe agitation. Will address plan for final dose of antibiotics in the am. Continue Risperdal at previously effective dose 1 mg am and 2 mg hs and focus on compliance. Continue proton pump inhibitor. Would suggest transition to [facility] for KURTZ when patient is more stable. Inventory Assets Strengths: hx of longtime compliance with medication, transitioned well to the unit Needs: increase insight into condition, support around legal charges. Suicide Risk Level Suicide Risk Level: Low (q15 min observation checks) Risk Factors Assessment Male: Yes : Yes Do You Have Access To A Gun?: No Mental Health Diagnoses: Yes Substance Use Disorders: No Previous Attempt: No Protective Factors Assessment : Yes Supportive Family: Yes Interval History Identifying Information BOLIVAR BATRES is a 71-year-old M who currently lives in [place] with his , has a history of schizophrenia, and was admitted on 03/22/22 20:46 on a 302 involuntary commitment for paranoia, poor med compliance. The patient was admitted from the medical floor where he has been receiving care since 03/04/22. Chief Complaint "I'm just so sorry about what happened, what if I pay for the damages?" Review of Systems Sleep Information Total Hours of Sleep: 7.25 Meal Information Percent Meal Consumed - Breakfast: 100 Percent Meal Consumed - Lunch: 100 Percent Meal Consumed - Dinner: 100 Subjective Subjective Patient was seen & assessed and interval progress reviewed with treatment team. spoke with patient's by phone to update on progress on the unit and discharge planning being complicated by his legal charges. He was also made aware and processed appropriately. 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 He remains focussed on going home and doesn't want to take KURTZ. Reviewed with that he would decompensate readily in police custody if refuses PO Risperdal. Physical Exam Psychiatric Orientation: alert Apperance: appropriately groomed Motor Behavior: + tremor (baseline) Speech: normal rate/rhythm/volume of speech Affect: + anxious affect Mood: + anxious mood Thought Process: + perseveration Thought Content: no delusions Suicidal Thoughts: denies suicidal thoughts Homicidal Thoughts: denies homicidal thoughts Hallucinations: no auditory hallucinations and no visual hallucinations Cognition: language grossly intact Estimated Intelligence: consistent with education level Insight: + poor insight Judgement: + poor judgement Vital Signs (Past 24 Hours) Last Vital Signs Temp 37.1 C 03/24/22 06:39 Pulse 76 03/24/22 06:39 Resp 16 03/24/22 06:39 BP 120/52 L 03/24/22 06:39 O2 Del Method 03/22/22 20:52 Results & Data ([facility]) Current Inpatient Medications Current Inpatient Medications: Current Inpatient Medications Acetaminophen (Acetaminophen 325 Mg Tab) 650 mg PO Q4H PRN PRN Reason: Headache or Minor Fever Stop: 04/21/22 20:38 Al Hydrox/Mg Hydrox/Simethicone (Aluminum/Magnesium Susp 30 Ml Udc) 30 ml PO Q4H PRN PRN Reason: GI Upset Stop: 04/21/22 20:38 Benztropine Mesylate (Benztropine Mesylate 0.5 Mg Tab) 0.5 mg PO Q6 PRN PRN Reason: dystonia Stop: 04/21/22 20:45 Bismuth Subsalicylate (Bismuth Subsalicylate Liqd 236 Ml) 15 ml PO PRN PRN PRN Reason: Loose Stool Stop: 04/21/22 20:38 Hydroxyzine HCl (Hydroxyzine Hcl 25 Mg Tab) 50 mg PO HSZ PRN PRN Reason: Insomnia Stop: 04/21/22 20:38 Lorazepam (Lorazepam 1 Mg Tab) 1 mg PO Q6 PRN PRN Reason: Anxiety Stop: 04/21/22 20:42 Magnesium Hydroxide (Magnesium Hydroxide Susp 30 Ml Udc) 30 ml PO DAILY PRN PRN Reason: Constipation Stop: 04/21/22 20:38 Olanzapine (Olanzapine 10 Mg/2.1 Ml Sdv) 5 mg IM Q8 PRN PRN Reason: Agitation Stop: 04/21/22 21:59 Pantoprazole Sodium (Pantoprazole 40 Mg Tab) 40 mg PO DAILY [facility] Stop: 04/22/22 08:59 Last Admin: 03/24/22 09:26 Dose: 40 mg Risperidone (Risperidone 1 Mg Tablet) 1 mg PO QAM [facility] Stop: 04/22/22 08:59 Last Admin: 03/24/22 09:26 Dose: 1 mg Risperidone (Risperidone 2 Mg Tablet) 2 mg PO HS [facility] Stop: 04/21/22 21:59 Last Admin: 03/23/22 21:12 Dose: 2 mg Sodium Chloride (Sodium Chloride 0.65% Na Soln 45 Ml ([place])) 1 - 2 sprays NA PRN PRN PRN Reason: Nasal Dryness/Congestion Stop: 04/21/22 20:38 Post Discharge Appointments Primary Care Physician Name Of Family Doctor: Dr. Hastings PCP ?
[2022-03-24] MEDS: LORazepam 0.5 MG TAB PO SCH (16:59)
[2022-03-24] MEDS: risperiDONE 2 MG TABLET PO SCH (21:16)
[2022-03-25] MEDS: PANTOprazole 40 MG TAB PO SCH (08:50)
[2022-03-25] MEDS: BENZTROPINE MESYLATE 0.5 MG TAB PO SCH ×2 (08:51→21:13)
[2022-03-25] MEDS: risperiDONE 1 MG TABLET PO SCH (08:51)
[2022-03-25] MEDS: LORazepam 0.5 MG TAB PO SCH ×2 (08:51→17:38)
--- NOTE | 2022-03-25 10:37 | Psychiatric Progress Note ---
Date of Service March 25, 2022 Impression / Recommendations Impression Bolivar is a 71 yo male with a history of schizophrenia, stable for >20 years on Risperdal but lapse in treatment, he became increasingly disorganized and wandered into a swampy area believing that he was being scammed. He had acute agitation when police and hospitalists intervened and appeared to have agitated catatonia and/or delirium. He was diagnosed and treated for aspiration pneumonia with septicemia and has been intermittently disruptive on the medical floor due ot his sporadic med compliance and ongoing paranoid delusions. 03/25/22: less anxious than yesterday, oral movements driven by anxiety and hop efully due to decrease in overall requirement for antipsychotic since transfer from med floor (and on/off effect) and will hopefully settle. (1) Schizophrenia: (2) Charles esophagus: (3) Bacteremia: Plan 03/25/22: improved, tolerating anticholinergic meds in low dose so will add Cogentin 0.5 mg standing BID. 03/24/22: continue curret meds and treatment plan, cannot exclude mouth movements as a withdrawal dyskinesia as was taking 5 mg Risperdal at times plus IM Zyprexa on med floor. Does appear anxiety based at this time. 03/23/22: continue current meds and treatment plan as on unit <24 hrs. neither patient nor his desire last dose of antibiotic and the risks of IV vs PO vs noncompliance were reviewed with them extensively on the med floor by hospitalist service. He is >14 days from positive culture. 03/22/22: The patient was admitted to the [facility] ([facility]) on q15 min checks (behavioral with suicide precautions) for safety. The patient will participate in group, recreational, and milieu therapies and will be offered additional individual and family sessions as clinically appropriate. The patient will require a MNPR due to age/condition and elopement precautions. Prn Ativan 1 mg po q6 for anxiety, Zyprexa IM for more severe agitation. Will address plan for final dose of antibiotics in the am. Continue Risperdal at previously effective dose 1 mg am and 2 mg hs and focus on compliance. Continue proton pump inhibitor. [facility] suggest [facility] when patient is more stable. Inventory Assets Strengths: hx of longtime compliance with medication, transitioned well to the unit Needs: increase insight into condition, support around legal charges. Suicide Risk Level Suicide Risk Level: Low (q15 min observation checks) Risk Factors Assessment Male: Yes : Yes Do You Have Access To A Gun?: No Mental Health Diagnoses: Yes Substance Use Disorders: No Previous Attempt: No Protective Factors Assessment : Yes Supportive Family: Yes Interval History Identifying Information BOLIVAR BATRES is a 71-year-old M who currently lives in [place] with his , has a history of schizophrenia, and was admitted on 03/22/22 20:46 on a 302 involuntary commitment for paranoia, poor med compliance. The patient was admitted from the medical floor where he has been receiving care since 03/04/22. Chief Complaint "I'm doing the best I can." Review of Systems Sleep Information Total Hours of Sleep: 6.5 Meal Information Percent Meal Consumed - Breakfast: 100 Percent Meal Consumed - Lunch: 50 Percent Meal Consumed - Dinner: 60 Subjective Subjective Patient was seen & assessed and interval progress reviewed with nursing and social sciences research scientist. Appears a bit calmer this am as found out that and sister can attend his arraignment Sunday on felony assault charges and bring him clothes, etc. He did receive Cogentin prn for restlessness and also prn Vistaril last hs for sleep. He continued to take meds consistently and adds "I should have never stopped them." Physical Exam Psychiatric Orientation: alert Apperance: appropriately groomed Eye Contact: + fair eye contact Motor Behavior: + tremor (baseline); + abnormal motor movements (oral dyskinesia (chewing) appears improved compared to yesterday) Speech: normal rate/rhythm/volume of speech Affect: + anxious affect Mood: + anxious mood; no dysphoric mood Thought Process: + concrete thought process Thought Content: not paranoid and no delusions Suicidal Thoughts: denies suicidal thoughts Homicidal Thoughts: denies homicidal thoughts Hallucinations: no auditory hallucinations and no visual hallucinations Cognition: language grossly intact Estimated Intelligence: consistent with education level Insight: + poor insight (improving) Vital Signs (Past 24 Hours) Last Vital Signs Temp 36.9 C 03/25/22 06:00 Pulse 85 03/25/22 06:35 Resp 16 03/25/22 06:00 BP 102/64 03/25/22 06:35 O2 Del Method 03/22/22 20:52 Results & Data ([facility]) Current Inpatient Medications Current Inpatient Medications: Current Inpatient Medications Acetaminophen (Acetaminophen 325 Mg Tab) 650 mg PO Q4H PRN PRN Reason: Headache or Minor Fever Stop: 04/21/22 20:38 Al Hydrox/Mg Hydrox/Simethicone (Aluminum/Magnesium Susp 30 Ml Udc) 30 ml PO Q4H PRN PRN Reason: GI Upset Stop: 04/21/22 20:38 Benztropine Mesylate (Benztropine Mesylate 0.5 Mg Tab) 0.5 mg PO Q6 PRN PRN Reason: dystonia Stop: 04/21/22 20:45 Last Admin: 03/24/22 21:17 Dose: 0.5 mg Benztropine Mesylate (Benztropine Mesylate 0.5 Mg Tab) 0.5 mg PO BID [facility] Stop: 04/24/22 08:59 Last Admin: 03/25/22 08:51 Dose: 0.5 mg Bismuth Subsalicylate (Bismuth Subsalicylate Liqd 236 Ml) 15 ml PO PRN PRN PRN Reason: Loose Stool Stop: 04/21/22 20:38 Hydroxyzine HCl (Hydroxyzine Hcl 25 Mg Tab) 50 mg PO HSZ PRN PRN Reason: Insomnia Stop: 04/21/22 20:38 Last Admin: 03/24/22 22:41 Dose: 50 mg Lorazepam (Lorazepam 1 Mg Tab) 1 mg PO Q6 PRN PRN Reason: Anxiety Stop: 04/21/22 20:42 Lorazepam (Lorazepam 0.5 Mg Tab) 0.5 mg PO BIDM [facility] Stop: 04/23/22 17:44 Last Admin: 03/25/22 08:51 Dose: 0.5 mg Magnesium Hydroxide (Magnesium Hydroxide Susp 30 Ml Udc) 30 ml PO DAILY PRN PRN Reason: Constipation Stop: 04/21/22 20:38 Olanzapine (Olanzapine 10 Mg/2.1 Ml Sdv) 5 mg IM Q8 PRN PRN Reason: Agitation Stop: 04/21/22 21:59 Pantoprazole Sodium (Pantoprazole 40 Mg Tab) 40 mg PO DAILY [facility] Stop: 04/22/22 08:59 Last Admin: 03/25/22 08:50 Dose: 40 mg Risperidone (Risperidone 1 Mg Tablet) 1 mg PO QAM [facility] Stop: 04/22/22 08:59 Last Admin: 03/25/22 08:51 Dose: 1 mg Risperidone (Risperidone 2 Mg Tablet) 2 mg PO HS [facility] Stop: 04/21/22 21:59 Last Admin: 03/24/22 21:16 Dose: 2 mg Sodium Chloride (Sodium Chloride 0.65% Na Soln 45 Ml ([place])) 1 - 2 sprays NA PRN PRN PRN Reason: Nasal Dryness/Congestion Stop: 04/21/22 20:38 Post Discharge Appointments Primary Care Physician Name Of Family Doctor: Dr. Hastings PCP ?
[2022-03-25] MEDS: risperiDONE 2 MG TABLET PO SCH (21:13)
[2022-03-26] MEDS: risperiDONE 1 MG TABLET PO SCH (08:43)
[2022-03-26] MEDS: LORazepam 0.5 MG TAB PO SCH ×2 (08:43→18:09)
[2022-03-26] MEDS: PANTOprazole 40 MG TAB PO SCH (08:43)
[2022-03-26] MEDS: BENZTROPINE MESYLATE 0.5 MG TAB PO SCH ×2 (08:43→20:52)
--- NOTE | 2022-03-26 17:22 | Psychiatric Progress Note ---
Date of Service March 26, 2022 Impression / Recommendations Impression Bolivar is a 71 yo male with a history of schizophrenia, stable for >20 years on Risperdal but lapse in treatment, he became increasingly disorganized and wandered into a swampy area believing that he was being scammed. He had acute agitation when police and hospitalists intervened and appeared to have agitated catatonia and/or delirium. He was diagnosed and treated for aspiration pneumonia with septicemia and had been intermittently disruptive on the medical floor due to his sporadic medication adherence and ongoing paranoid delusions. Has been improving with treatment for infection and adherence with risperidone and re- initiation of ativan. 03/26/22: anxiety is improving though remains concerned about logistics of legal charges. Reduction in tremor with lower dose of risperidone and feels better with cogentin addition. Improving insight into importance of his medication and no evidence for acute paranoia or delusions. Responding well to reassurance. (1) Schizophrenia: (2) Charles esophagus: (3) Bacteremia: Plan 03/26/22: Continue current medications and tx plan. Insight has significantly improved and delirium improved. 03/25/22: improved, tolerating anticholinergic meds in low dose so will add Cogentin 0.5 mg standing BID. 03/24/22: continue curret meds and treatment plan, cannot exclude mouth movements as a withdrawal dyskinesia as was taking 5 mg Risperdal at times plus IM Zyprexa on med floor. Does appear anxiety based at this time. 03/23/22: continue current meds and treatment plan as on unit <24 hrs. neither patient nor his desire last dose of antibiotic and the risks of IV vs PO vs noncompliance were reviewed with them extensively on the med floor by hospitalist service. He is >14 days from positive culture. 03/22/22: The patient was admitted to the [facility] ([facility] mental health unit) on q15 min checks (behavioral with suicide precautions) for safety. The patient will participate in group, recreational, and milieu therapies and will be offered additional individual and family sessions as clinically appropriate. The patient will require a MNPR due to age/condition and elopement precautions. Prn Ativan 1 mg po q6 for anxiety, Zyprexa IM for more severe agitation. Will address plan for final dose of antibiotics in the am. Continue Risperdal at previously effective dose 1 mg am and 2 mg hs and focus on compliance. Continue proton pump inhibitor. Would suggest transition to [facility] for KURTZ when patient is more stable. Inventory Assets Strengths: hx of longtime compliance with medication, transitioned well to the unit Needs: increase insight into condition, support around legal charges. Suicide Risk Level Suicide Risk Level: Low (q15 min observation checks) Risk Factors Assessment Male: Yes : Yes Do You Have Access To A Gun?: No Mental Health Diagnoses: Yes Substance Use Disorders: No Previous Attempt: No Protective Factors Assessment : Yes Supportive Family: Yes Interval History Identifying Information BOLIVAR BATRES is a 71-year-old M who currently lives in [place] with his , has a history of schizophrenia, and was admitted on 03/22/22 20:46 on a 302 involuntary commitment for paranoia, poor med compliance. The patient was admitted from the medical floor where he has been receiving care since 03/04/22. Chief Complaint "I'm never going to stop my medication again". Review of Systems Sleep Information Total Hours of Sleep: 5.5 Meal Information Percent Meal Consumed - Breakfast: 100 Percent Meal Consumed - Lunch: 100 Percent Meal Consumed - Dinner: 90 Subjective Subjective Patient was seen & assessed and interval progress reviewed with treatment team nursing and social work. Remains anxious about legal charges from events prior to medical admission. Denies any medication side effects. Feels the cogentin is helping him feel "less nervous". Eating well. Asked about why his could not visit and responded well to discussion about COVID limitations without any p aranoia about this. Physical Exam Psychiatric Orientation: alert Apperance: appropriately groomed Eye Contact: + fair eye contact Motor Behavior: + tremor (baseline); + abnormal motor movements (oral dyskinesia (chewing) significantly reduced) Speech: normal rate/rhythm/volume of speech Affect: + anxious affect Mood: + anxious mood Thought Process: + perseveration and + concrete thought process Thought Content: reality based without delusions; not paranoid and no delusions Suicidal Thoughts: denies suicidal thoughts Homicidal Thoughts: denies homicidal thoughts Hallucinations: no auditory hallucinations and no visual hallucinations Cognition: recent memory grossly intact, remote memory grossly intact, attention grossly intact and language grossly intact Estimated Intelligence: consistent with education level Insight: + limited insight Judgement: + fair judgement Vital Signs (Past 24 Hours) Last Vital Signs Temp 36.7 C 03/26/22 06:00 Pulse 80 03/26/22 06:32 Resp 16 03/26/22 06:00 BP 90/60 L 03/26/22 06:32 O2 Del Method 03/22/22 20:52 Results & Data ([facility]) Current Inpatient Medications Current Inpatient Medications: Current Inpatient Medications Acetaminophen (Acetaminophen 325 Mg Tab) 650 mg PO Q4H PRN PRN Reason: Headache or Minor Fever Stop: 04/21/22 20:38 Al Hydrox/Mg Hydrox/Simethicone (Aluminum/Magnesium Susp 30 Ml Udc) 30 ml PO Q4H PRN PRN Reason: GI Upset Stop: 04/21/22 20:38 Benztropine Mesylate (Benztropine Mesylate 0.5 Mg Tab) 0.5 mg PO Q6 PRN PRN Reason: dystonia Stop: 04/21/22 20:45 Last Admin: 03/24/22 21:17 Dose: 0.5 mg Benztropine Mesylate (Benztropine Mesylate 0.5 Mg Tab) 0.5 mg PO BID [facility] Stop: 04/24/22 08:59 Last Admin: 03/26/22 08:43 Dose: 0.5 mg Bismuth Subsalicylate (Bismuth Subsalicylate Liqd 236 Ml) 15 ml PO PRN PRN PRN Reason: Loose Stool Stop: 04/21/22 20:38 Hydroxyzine HCl (Hydroxyzine Hcl 25 Mg Tab) 50 mg PO HSZ PRN PRN Reason: Insomnia Stop: 04/21/22 20:38 Last Admin: 03/24/22 22:41 Dose: 50 mg Lorazepam (Lorazepam 1 Mg Tab) 1 mg PO Q6 PRN PRN Reason: Anxiety Stop: 04/21/22 20:42 Lorazepam (Lorazepam 0.5 Mg Tab) 0.5 mg PO BIDM [facility] Stop: 04/23/22 17:44 Last Admin: 03/26/22 08:43 Dose: 0.5 mg Magnesium Hydroxide (Magnesium Hydroxide Susp 30 Ml Udc) 30 ml PO DAILY PRN PRN Reason: Constipation Stop: 04/21/22 20:38 Olanzapine (Olanzapine 10 Mg/2.1 Ml Sdv) 5 mg IM Q8 PRN PRN Reason: Agitation Stop: 04/21/22 21:59 Pantoprazole Sodium (Pantoprazole 40 Mg Tab) 40 mg PO DAILY [facility] Stop: 04/22/22 08:59 Last Admin: 03/26/22 08:43 Dose: 40 mg Risperidone (Risperidone 1 Mg Tablet) 1 mg PO QAM [facility] Stop: 04/22/22 08:59 Last Admin: 03/26/22 08:43 Dose: 1 mg Risperidone (Risperidone 2 Mg Tablet) 2 mg PO HS [facility] Stop: 04/21/22 21:59 Last Admin: 03/25/22 21:13 Dose: 2 mg Sodium Chloride (Sodium Chloride 0.65% Na Soln 45 Ml ([place])) 1 - 2 sprays NA PRN PRN PRN Reason: Nasal Dryness/Congestion Stop: 04/21/22 20:38 Mental Health & Subst Abuse Tx Psychiatrist Name of Psychiatrist: [facility] Date of Appointment with Psychiatrist: 04/23/22 Time of Appointment with Psychiatrist: 8:00 AM Post Discharge Appointments Primary Care Physician Name Of Family Doctor: Dr. Hastings PCP ?
[2022-03-26] MEDS: risperiDONE 2 MG TABLET PO SCH (20:52)
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
[2022-03-27] MEDS: risperiDONE 1 MG TABLET PO SCH (09:38)
[2022-03-27] MEDS: LORazepam 0.5 MG TAB PO SCH (09:41)
[2022-03-27] MEDS: BENZTROPINE MESYLATE 0.5 MG TAB PO SCH (09:41)
[2022-03-27] MEDS: PANTOprazole 40 MG TAB PO SCH (09:41)
== END 2022-03-27 10:40 | disposition home or self-care (01) | DRG 885 ==
LOC: 3S 20:46